=== PATIENT | female | born 1985 | race Two or more races ===

== ENCOUNTER → 2018-12-29 | Day surgery (SDC) | payer BC ==
[~2018-12-29] MED LIST: ATENOLOL50 MG PO; BENZOCAINE 20% SPR 60 ML CAN ONE; COUMADIN10 MG PO; COUMADIN2 MG PO; FENTANYL CITRATE/PF 100MCG/2 ML INJ ONE; LIDOCAINE HCL 2% LOCAL INJ 5 ML SDV VIAL INJ ONE; LISINOPRIL10 MG PO; METOPROLOL TART25 MG PO; MIDAZOLAM HCL 2 MG/2 ML VIAL ONE; PROPOFOL IV EMULSION 10 MG/ML 20 ML VIAL ONE; SODIUM CHLORIDE 0.9% 1000ML 1,000 ML ONE; TIKOSYN500 MCG PO; TOPROL XL25 MG PO
--- OUTSIDE RECORDS SUMMARY | 2018-12-29 07:27 | XMS REPORT | Summary of Care ---
Author Author [facility] Organization [facility] Address Unknown Phone Unavailable Encounter CAMERON Prater(SHAUNA) [id number] Date(s): 06/10/15 - 06/10/[address] [facility] [address] [place] [address]- Discharge Diagnosis: Dizziness Discharge Disposition: Home Attending Physician: Juventino Reyes MD Vital Signs Most recent to 1 2 oldest [Reference Range]: Height 167.64 cm (06/10/15 12:56 PM) Most recent to 1 2 oldest [Reference Range]: Temperature Oral 98.1 DegF 98.5 DegF [96.4-99.1 DegF] (06/10/15 4:08 PM) (06/10/15 12:56 PM) Most recent to 1 2 oldest [Reference Range]: Blood Pressure 131/69 mmHg 147/100 mmHg [90-140/60-90 mmHg] (06/10/15 4:08 PM) *HI* (06/10/15 12:56 PM) Most recent to 1 2 oldest [Reference Range]: Respiratory Rate 18 BRMIN 20 BRMIN [14-20 BRMIN] (06/10/15 4:08 PM) (06/10/15 12:56 PM) Most recent to 1 2 oldest [Reference Range]: Peripheral Pulse 81 bpm 78 bpm Rate [60-100 bpm] (06/10/15 4:08 PM) (06/10/15 12:56 PM) Most recent to 1 2 oldest [Reference Range]: Weight 79.545 kg (06/10/15 12:56 PM) Most recent to 1 2 oldest [Reference Range]: Body Mass Index 28.3 m2 (06/10/15 12:56 PM) Problem List Condition Effective Dates Status Health Status Informant AF - Atrial Active fibrillation(Confirm ed) Cardiac Active pacemaker(Confirmed) Mitral valve Resolved disease(Confirmed) Mitral valve Active disease(Confirmed) MVR - Mitral valve Active replacement(Confirme d) Pacemaker(Confirmed) Active Palpitations(Confirm Active ed) Palpitations(Confirm Active ed) SVT - Active Supraventricular tachycardia(Confirme d) Allergies, Adverse Reactions, Alerts Substance Reaction Severity Status NKDA Active Medications Ativan 1 mg, Route: PO, Drug form: TAB, ONCE, Dosing Weight 79.545, kg, Priority: STAT, Start date: 06/10/15 15:48:00, Stop date: 06/10/15 15:48:00 Start Date: 06/10/15 Stop Date: 06/10/15 Status: Completed Results ELECTROLYTES Most recent to 1 oldest [Reference Range]: Sodium Lvl [135-145 137 mEq/L mEq/L] (06/10/15 2:39 PM) Potassium Lvl 3.8 mEq/L [3.5-5.1 mEq/L] (06/10/15 2:39 PM) Chloride Lvl [95-109 105 mEq/L mEq/L] (06/10/15 2:39 PM) CO2 [24-32 mEq/L] 24 mEq/L (06/10/15 2:39 PM) AGAP [10.0-20.0 11.8 mEq/L mEq/L] (06/10/15 2:39 PM) CHEM PANEL Most recent to 1 oldest [Reference Range]: Creatinine Lvl 0.7 mg/dL [0.5-1.4 mg/dL] (06/10/15 2:39 PM) eGFR 116 mL/min/1.73m2 1 *NA* (06/10/15 2:39 PM) BUN [7-22 mg/dL] 10 mg/dL (06/10/15 2:39 PM) B/C Ratio [6-25] 14 (06/10/15 2:39 PM) Glucose Lvl [70-99 108 mg/dL mg/dL] *HI* (06/10/15 2:39 PM) Total Protein 8.1 g/dL [6.4-8.4 g/dL] (06/10/15 2:39 PM) Albumin Lvl [3.5-5.0 4.0 g/dL g/dL] (06/10/15 2:39 PM) Globulin [2.0-4.0 4.1 g/dL g/dL] *HI* (06/10/15 2:39 PM) A/G Ratio [0.7-1.6] 1.0 (06/10/15 2:39 PM) Calcium Lvl 8.4 mg/dL [8.5-10.5 mg/dL] *LOW* (06/10/15 2:39 PM) ALT [0-65 unit/L] 27 unit/L (06/10/15 2:39 PM) AST [0-37 unit/L] 29 unit/L (06/10/15 2:39 PM) Alk Phos [39-136 74 unit/L unit/L] (06/10/15 2:39 PM) Bili Total [0.2-1.3 0.7 mg/dL mg/dL] (06/10/15 2:39 PM) 1Result Comment: The eGFR is calculated using the CKD-EPI formula. In most young, healthy individuals the eGFR will be >90 mL/min/1.73m2. The eGFR declines with age. An eGFR of 60-89 may be normal in some populations, particularly the elderly, for whom the CKD-EPI formula has not been extensively validated. Use of the eGFR is not recommended in the following populations: Individuals with unstable creatinine concentrations, including patients and those with serious co-morbid conditions. Patients with extremes in muscle mass or diet. The data above are obtained from the National Kidney Disease Education Program ( NKDEP) which additionally recommends that when the eGFR is used in patients with extremes of body mass index for purposes of drug dosing, the eGFR should be mul tiplied by the estimated BMI. CARDIAC ENZYMES Most recent to 1 oldest [Reference Range]: Total CK [12-191 149 unit/L unit/L] (06/10/15 2:39 PM) CK MB [0.5-3.6 1.8 ng/mL ng/mL] (06/10/15 2:39 PM) CK MB Index 1.2 [0.0-2.5] (06/10/15 2:39 PM) Troponin-I <0.02 ng/mL [0.00-0.40 ng/mL] (06/10/15 2:39 PM) HEMATOLOGY Most recent to 1 oldest [Reference Range]: WBC [3.7-10.4 K/CMM] 9.5 K/CMM (06/10/15 2:39 PM) RBC [4.20-5.40 4.67 M/CMM M/CMM] (06/10/15 2:39 PM) Hgb [12.0-16.0 g/dL] 14.9 g/dL (06/10/15 2:39 PM) Hct [36.0-48.0 %] 44.0 % (06/10/15 2:39 PM) MCV [80.0-98.0 fL] 94.2 fL (06/10/15 2:39 PM) MCH [27.0-31.0 pg] 32.0 pg *HI* (06/10/15 2:39 PM) MCHC [32.0-36.0 33.9 g/dL g/dL] (06/10/15 2:39 PM) RDW [11.5-14.5 %] 14.5 % (06/10/15 2:39 PM) Platelet [133-450 198 K/CMM K/CMM] (06/10/15 2:39 PM) MPV [7.4-10.4 fL] 9.6 fL (06/10/15 2:39 PM) Segs [45.0-75.0 %] 73.2 % (06/10/15 2:39 PM) Lymphocytes 15.1 % [20.0-40.0 %] *LOW* (06/10/15 2:39 PM) Monocytes [2.0-12.0 9.4 % %] (06/10/15 2:39 PM) Eosinophils [0.0-4.0 1.4 % %] (06/10/15 2:39 PM) Basophils [0.0-1.0 0.9 % %] (06/10/15 2:39 PM) Segs-Bands # 6.9 K/CMM [1.5-8.1 K/CMM] (06/10/15 2:39 PM) Lymphocytes # 1.4 K/CMM [1.0-5.5 K/CMM] (06/10/15 2:39 PM) Monocytes # [0.0-0.8 0.9 K/CMM K/CMM] *HI* (06/10/15 2:39 PM) Eosinophils # 0.1 K/CMM [0.0-0.5 K/CMM] (06/10/15 2:39 PM) Basophils # [0.0-0.2 0.1 K/CMM K/CMM] (06/10/15 2:39 PM) PT [12.0-14.7 31.7 seconds seconds] *HI* (06/10/15 2:39 PM) INR [0.85-1.17] 2.94 *HI* (06/10/15 2:39 PM) PTT [22.9-35.8 76.1 seconds seconds] *HI* (06/10/15 2:39 PM) Immunizations Vaccine Date Refusal Reason influenza virus vaccine, inactivated 10/01/12 Procedures Procedure Date Related Diagnosis Body Site Cardiac pacemaker procedure Mitral valve operation Social History Social History Type Response Smoking Status Former smoker; Type: Cigarettes; Exposure to Tobacco Smoke None; Cigarette Smoking Last 365 Days No; Reg Smoking Cessation Counseling No Assessment and Plan No data available for this section
--- OUTSIDE RECORDS SUMMARY | 2018-12-29 07:27 | XMS REPORT | CCD ---
Author Author Auto Generated Organization [facility] Address Unknown Phone Unavailable Care Team Providers Care Order Processing Clerk Name Role Phone Dipesh Blue CP Allergies, Adverse Reactions, Alerts Substance Reaction Status NKDA Active Problem List Condition Effective Dates Status AF - Atrial fibrillation Active Cardiac pacemaker Active MVR - Mitral valve replacement Active Palpitations Active SVT - Supraventricular tachycardia Active Medications Medication Instructions Start Date End Date Status Lovenox 80 mg, 0.8 mL, Route: SUB-Q, Drug 10/01/2012 10/01/2012 Discontinued form: INJ, [id number], Dosing Weight 78.636, kg, Start date: 10/01/12 15:00:00, Duration: 30 day, Stop date: 10/31/12 3:00:00 influenza virus 0.5 ml, Route: IM, Drug Form: INJ, 10/01/2012 10/01/2012 Completed vaccine, inactivated Daily, Start date: 10/01/12 9:00:00, Duration: 1 doses or times, Stop date: 10/01/12 9:00:00 Lovenox 78.636 mg, Route: SUB-Q, Drug form: 10/01/2012 10/01/2012 Discontinued INJ, [id number], Dosing Weight 78.636, kg, Start date: 10/01/12 8:00:00, Duration: 30 day, Stop date: 10/30/12 20:00:00, Pediatric Dosing Pediatric Dosing Dextrose 5% with 1,000 mL, Rate: 40 ml/hr, Infuse 09/30/2012 10/01/2012 Discontinued 0.45% NaCl IV 1,000 over: 25 hr, Route: IV, kg, Total mL Volume: 1,000, Start date: 09/30/12 22:16:00, Duration: 30 day, Stop date: 10/30/12 22:15:00 Saline Flush 0.9% 5 ml, Route: IVP, Drug Form: INJ, 09/30/2012 10/01/2012 Discontinued Dosing Weight 77.273, kg, PRN, PRN Line Flush, Start date: 09/30/12 22:16:00, Duration: 30 day, Stop date: 10/30/12 22:15:00 [place] 5/325 oral 1 tab, Route: PO, Drug Form: TAB, 09/30/2012 10/01/2012 Discontinued tablet Dosing Weight 78.636, kg, Q4H, PRN Pain, Start date: 09/30/12 22:59:00, Duration: 30 day, Stop date: 10/30/12 22:58:00 atenolol 50 mg oral 50 mg, 1 tab, Route: PO, Drug form: 10/01/2012 10/01/2012 Discontinued tablet TAB, Daily, Dosing Weight 78.636, kg, Start date: 10/01/12 9:00:00, Duration: 30 day, Stop date: 10/30/12 9:00:00 ibuprofen 800 mg, 2 tab, Route: PO, Drug 09/30/2012 10/01/2012 Discontinued form: TAB, Q8H, Dosing Weight 78.636, kg, PRN For Pain, Start date: 09/30/12 22:57:00, Duration: 30 day, Stop date: 10/30/12 22:56:00 amoxicillin 500 mg, 1 cap, Route: PO, Drug 10/01/2012 10/01/2012 Discontinued form: CAP, [id number], Dosing Weight 78.636, kg, Start date: 10/01/12 0:00:00, Duration: 30 day, Stop date: 10/30/12 16:00:00 Lovenox 80 mg/0.8 mL 80 mg, SUB-Q, Q12H, 14 syr, 10/01/2012 Ordered subcutaneous Substitution Allowed, INJ solution amoxicillin 500 mg 500 mg, 1 tab, PO, Q8H, 09/30/2012 Ordered oral tablet Substitution Allowed influenza virus 0.5 ml, Route: IM, Drug Form: INJ, 10/01/2012 10/01/2012 Completed vaccine, inactivated Start date: 10/01/12 9:00:00, Stop date: 10/01/12 9:00:00 ibuprofen 800 mg 800 mg, 1 tab, PO, Q8H, PRN, as 09/30/2012 Ordered oral tablet needed for pain, Substitution Allowed atenolol 50 mg oral 50 mg, 1 tab, PO, Daily, 09/30/2012 Ordered tablet Substitution Allowed Immunizations Vaccine Date Status influenza virus vaccine, inactivated 10/01/2012 Auth (Verified) Vital Signs Most recent to oldest [Reference Range]: 1 2 3 Height 170.18 cm (09/30/2012 22:28:00) 172.72 cm (09/30/2012 12:23:00) Temperature Oral [96.4-99.1 DegF] 98.0 DegF (10/01/2012 16:00:00) 98.1 DegF (10/01/2012 12:00:00) 98.5 DegF (10/01/2012 08:00:00) Systolic Blood Pressure [90-140 mmHg] 106 mmHg (10/01/2012 16:00:00) 108 mmHg (10/01/2012 12:00:00) 117 mmHg (10/01/2012 08:00:00) Diastolic Blood Pressure [60-90 mmHg] 69 mmHg (10/01/2012 16:00:00) 66 mmHg (10/01/2012 12:00:00) 71 mmHg (10/01/2012 08:00:00) Respiratory Rate [14-20 BRMIN] 18 BRMIN (10/01/2012 16:00:00) 16 BRMIN (10/01/2012 12:00:00) 16 BRMIN (10/01/2012 08:00:00) Peripheral Pulse Rate [60-100 bpm] 96 bpm (10/01/2012 16:00:00) 81 bpm (10/01/2012 12:00:00) 97 bpm (10/01/2012 08:00:00) Weight 78.636 kg (09/30/2012 22:28:00) 77.273 kg (09/30/2012 12:23:00) Results CHEMISTRY Most recent to oldest [Reference Range]: 1 Sodium Lvl [135-145 mEq/L] 144 mEq/L (10/01/2012 05:37:00) Potassium Lvl [3.5-5.1 mEq/L] 3.9 mEq/L (10/01/2012 05:37:00) Chloride Lvl [95-109 mEq/L] 108 mEq/L (10/01/2012 05:37:00) CO2 [24-32 mEq/L] 27 mEq/L (10/01/2012 05:37:00) AGAP [10.0-20.0 mEq/L] 12.9 mEq/L (10/01/2012 05:37:00) Creatinine Lvl [0.5-1.4 mg/dL] 0.8 mg/dL (10/01/2012 05:37:00) eGFR 101 mL/min/1.73m2 1 *NA* (10/01/2012 05:37:00) BUN [7-22 mg/dL] 7 mg/dL (10/01/2012 05:37:00) Glucose Lvl [70-99 mg/dL] 88 mg/dL 2 (10/01/2012 05:37:00) Calcium Lvl [8.5-10.5 mg/dL] 8.2 mg/dL *LOW* (10/01/2012 05:37:00) 1Result Comment: The eGFR is calculated using [...] be mul tiplied by the estimated BMI. 2Interpretive Data: Adult reference range values reflect the clinical guidelines of the [place] [employer]. HEMATOLOGY Most recent to oldest [Reference Range]: 1 WBC [3.7-10.4 K/CMM] 7.6 K/CMM (10/01/2012 05:37:00) RBC [4.20-5.40 M/CMM] 4.04 M/CMM *LOW* (10/01/2012 05:37:00) Hgb [12.0-16.0 g/dL] 12.7 g/dL (10/01/2012 05:37:00) Hct [36.0-48.0 %] 36.9 % (10/01/2012 05:37:00) MCV [81.0-99.0 fL] 91.4 fL (10/01/2012 05:37:00) MCH [27.0-31.0 pg] 31.5 pg *HI* (10/01/2012 05:37:00) MCHC [32.0-36.0 g/dL] 34.5 g/dL (10/01/2012 05:37:00) RDW [11.5-14.5 %] 13.8 % (10/01/2012 05:37:00) Platelet [133-450 K/CMM] 134 K/CMM (10/01/2012 05:37:00) MPV [7.4-10.4 fL] 9.3 fL (10/01/2012 05:37:00) Segs [45.0-75.0 %] 68.5 % (10/01/2012 05:37:00) Lymphocytes [20.0-40.0 %] 17.3 % *LOW* (10/01/2012 05:37:00) Monocytes [2.0-12.0 %] 11.3 % (10/01/2012 05:37:00) Eosinophils [0.0-4.0 %] 2.5 % (10/01/2012 05:37:00) Basophils [0.0-1.0 %] 0.4 % (10/01/2012 05:37:00) Segs-Bands # [1.5-8.1 K/CMM] 5.2 K/CMM (10/01/2012 05:37:00) Lymphocytes # [1.0-5.5 K/CMM] 1.3 K/CMM (10/01/2012 05:37:00) Monocytes # [0.0-0.8 K/CMM] 0.9 K/CMM *HI* (10/01/2012 05:37:00) Eosinophils # [0.0-0.5 K/CMM] 0.2 K/CMM (10/01/2012 05:37:00) Basophils # [0.0-0.2 K/CMM] 0.0 K/CMM (10/01/2012 05:37:00) PT [12.0-14.7 seconds] 21.8 seconds *HI* (10/01/2012 05:37:00) INR [0.85-1.17] 1.89 3 *HI* (10/01/2012 05:37:00) 3Interpretive Data: RECOMMENDED RANGES FOR PROTIME INR: 2.0-3.0 for most medical and surgical thromboembolic states. 2.5-3.5 for artificial heart valves and recurrent embolism. INR SHOULD BE USED ONLY FOR PATIENTS ON STABLE ANTICOAGULANT THERAPY.
--- OUTSIDE RECORDS SUMMARY | 2018-12-29 07:27 | XMS REPORT | CCD ---
Author Author Auto Generated Organization [facility] Address Unknown Phone Unavailable Care Team Providers Care Attorney Law Clerk Name Role Phone Ivonne Magaña CP Allergies, Adverse Reactions, Alerts Substance Reaction Status NKDA Active Problem List Condition Effective Dates Status Palpitations Active SVT - Supraventricular tachycardia Active Medications Medication Instructions Start Date End Date Status Coumadin 15 mg, PO, Substitution Allowed, 06/05/2012 Ordered TAB morphine Sulfate 2 mg, 1 mL, Route: IVP, Drug form: 06/04/2012 06/05/2012 Discontinued INJ, Q15Min, PRN Chest Pain, Start date: 06/04/12 17:04:00, Duration: 2 doses or times, Stop date: Limited # of times acetaminophen-hydroc 1 tab, Route: PO, Drug Form: TAB, 06/04/2012 06/05/2012 Discontinued odone 325 mg-5 mg Q4H, PRN Pain Score 1-5, Start oral tablet date: 06/04/12 17:04:00, Duration: 30 day, Stop date: 07/04/12 17:03:00 Saline Flush 0.9% 5 ml, Route: IVP, Drug Form: INJ, 06/04/2012 06/05/2012 Discontinued PRN, PRN Line Flush, Start date: 06/04/12 17:04:00, Duration: 30 day, Stop date: 07/04/12 17:03:00 Zofran 4 mg, 2 mL, Route: IVP, Drug form: 06/04/2012 06/05/2012 Discontinued INJ, Q8H, PRN Nausea, Start date: 06/04/12 17:04:00, Duration: 30 day, Stop date: 07/04/12 17:03:00 Ambien 10 mg, 2 tab, Route: PO, Drug form: 06/04/2012 06/05/2012 Discontinued TAB, Bedtime, PRN Insomnia, Start date: 06/04/12 17:04:00, Duration: 30 day, Stop date: 07/04/12 17:03:00 potassium chloride 20 mEq, 1 tab, Route: PO, Drug 06/04/2012 06/05/2012 Discontinued 20 mEq oral tablet, form: ERTAB, Daily, PRN Abnormal extended release Lab Result, Replacement for potassium less than 3.5, Start date: 06/04/12 17:04:00, Duration: 30 day, Stop date: 07/04/12 17:03:00 magnesium oxide 400 mg, 1 tab, Route: PO, Drug 06/04/2012 06/05/2012 Discontinued form: TAB, Daily, PRN Abnormal Lab Result, Start date: 06/04/12 17:04:00, Duration: 30 day, Stop date: 07/04/12 17:03:00 Saline Flush 0.9% 5 ml, Route: IVP, Drug Form: INJ, 06/04/2012 06/05/2012 Discontinued Q12H, Start date: 06/04/12 21:00:00, Duration: 30 day, Stop date: 07/04/12 9:00:00 metoprolol extended 25 mg, 1 tab, Route: PO, Drug form: 06/05/2012 06/05/2012 Discontinued release ERTAB, Daily, Start date: 06/05/12 9:00:00, Duration: 30 day, Stop date: 07/04/12 9:00:00 Saline Flush 0.9% 5 ml, Route: IVP, Drug Form: INJ, 06/04/2012 06/05/2012 Discontinued PRN, PRN Line Flush, Start date: 06/04/12 15:58:00, Duration: 30 day, Stop date: 07/04/12 15:57:00 acetaminophen 650 mg, 2 tab, Route: PO, Drug 06/04/2012 06/05/2012 Discontinued form: TAB, Q4H, PRN Pain/Fever, Start date: 06/04/12 15:58:00, Duration: 30 day, Stop date: 07/04/12 15:57:00 acetaminophen-hydroc 1 tab, Route: PO, Drug Form: TAB, 06/04/2012 06/05/2012 Discontinued odone 325 mg-5 mg Q4H, PRN Pain Score 1-3, Start oral tablet date: 06/04/12 15:58:00, Duration: 30 day, Stop date: 07/04/12 15:57:00 acetaminophen-hydroc 1 tab, PO, Q4H, PRN, 10 tab, Pain 06/05/2012 Ordered odone 325 mg-5 mg Score 1-3, Substitution Allowed, oral tablet Soft Stop, TAB metoprolol 25 mg 25 mg, 1 tab, PO, Daily, 30 tab, 06/05/2012 Ordered oral tablet Substitution Allowed, TAB metoprolol 25 mg 25 mg, 1 tab, Substitution Allowed 06/05/2012 06/05/2012 Discontinued oral tablet Vital Signs Most recent to oldest [Reference Range]: 1 2 3 Height 170.18 cm (06/04/2012 16:11:00) 170.18 cm (06/04/2012 15:25:00) Temperature Oral [96.4-99.1 DegF] 98.1 DegF (06/05/2012 08:11:00) 97 DegF (06/05/2012 04:00:00) 96.4 DegF (06/04/2012 23:38:00) Systolic Blood Pressure [90-140 mmHg] 110 mmHg (06/05/2012 08:11:00) 102 mmHg (06/05/2012 04:00:00) 109 mmHg (06/05/2012 02:00:00) Diastolic Blood Pressure [60-90 mmHg] 58 mmHg *LOW* (06/05/2012 08:11:00) 46 mmHg *LOW* (06/05/2012 04:00:00) 48 mmHg *LOW* (06/05/2012 02:00:00) Respiratory Rate [14-20 BRMIN] 16 BRMIN (06/05/2012 08:11:00) 18 BRMIN (06/05/2012 04:00:00) 16 BRMIN (06/05/2012 02:00:00) Peripheral Pulse Rate [60-100 bpm] 65 bpm (06/05/2012 08:11:00) 65 bpm (06/05/2012 04:00:00) 67 bpm (06/05/2012 02:00:00) Weight 75.199 kg (06/04/2012 16:11:00) 75.199 kg (06/04/2012 15:25:00) Results CHEMISTRY Most recent to oldest [Reference Range]: 1 Sodium Lvl [135-145 mEq/L] 147 mEq/L *HI* (06/05/2012 04:30:00) Potassium Lvl [3.5-5.1 mEq/L] 3.7 mEq/L (06/05/2012 04:30:00) Chloride Lvl [95-109 mEq/L] 113 mEq/L *HI* (06/05/2012 04:30:00) CO2 [24-32 mEq/L] 24 mEq/L (06/05/2012 04:30:00) AGAP [10.0-20.0 mEq/L] 13.7 mEq/L (06/05/2012 04:30:00) Creatinine Lvl [0.5-1.4 mg/dL] 0.8 mg/dL (06/05/2012 04:30:00) BUN [7-22 mg/dL] 9 mg/dL (06/05/2012 04:30:00) Glucose Lvl [70-99 mg/dL] 91 mg/dL 1 (06/05/2012 04:30:00) Calcium Lvl [8.5-10.5 mg/dL] 7.5 mg/dL *LOW* (06/05/2012 04:30:00) Magnesium Lvl [1.8-2.4 mg/dL] 1.7 mg/dL *LOW* (06/05/2012 04:30:00) 1Interpretive Data: Adult reference range values reflect the clinical guidelines of the [place] [employer]. HEMATOLOGY Most recent to oldest [Reference Range]: 1 WBC [3.7-10.4 K/CMM] 6.1 K/CMM (06/05/2012 04:30:00) RBC [4.20-5.40 M/CMM] 3.48 M/CMM *LOW* (06/05/2012 04:30:00) Hgb [12.0-16.0 g/dL] 10.9 g/dL *LOW* (06/05/2012 04:30:00) Hct [36.0-48.0 %] 32.6 % *LOW* (06/05/2012 04:30:00) MCV [81.0-99.0 fL] 93.7 fL (06/05/2012 04:30:00) MCH [27.0-31.0 pg] 31.2 pg *HI* (06/05/2012 04:30:00) MCHC [32.0-36.0 g/dL] 33.3 g/dL (06/05/2012 04:30:00) RDW [11.5-14.5 %] 14.4 % (06/05/2012 04:30:00) Platelet [133-450 K/CMM] 144 K/CMM (06/05/2012 04:30:00) MPV [7.4-10.4 fL] 9.8 fL (06/05/2012 04:30:00) Segs [45.0-75.0 %] 66.1 % (06/05/2012 04:30:00) Lymphocytes [20.0-40.0 %] 23.3 % (06/05/2012 04:30:00) Monocytes [2.0-12.0 %] 7.9 % (06/05/2012 04:30:00) Eosinophils [0.0-4.0 %] 2.3 % (06/05/2012 04:30:00) Basophils [0.0-1.0 %] 0.4 % (06/05/2012 04:30:00) Segs-Bands # [1.5-8.1 K/CMM] 4.1 K/CMM (06/05/2012 04:30:00) Lymphocytes # [1.0-5.5 K/CMM] 1.4 K/CMM (06/05/2012 04:30:00) Monocytes # [0.0-0.8 K/CMM] 0.5 K/CMM (06/05/2012 04:30:00) Eosinophils # [0.0-0.5 K/CMM] 0.1 K/CMM (06/05/2012 04:30:00) Basophils # [0.0-0.2 K/CMM] 0.0 K/CMM (06/05/2012 04:30:00) PT [12.0-14.7 seconds] 27.1 seconds *HI* (06/05/2012 04:30:00) INR [0.85-1.17] 2.55 2 *HI* (06/05/2012 04:30:00) 2Interpretive Data: RECOMMENDED RANGES FOR PROTIME INR: 2.0-3.0 for most medical and surgical thromboembolic states. 2.5-3.5 for artificial heart valves and recurrent embolism. INR SHOULD BE USED ONLY FOR PATIENTS ON STABLE ANTICOAGULANT THERAPY.
--- OUTSIDE RECORDS SUMMARY | 2018-12-29 07:27 | XMS REPORT | CCD ---
Author Author Auto Generated Organization [facility] Address Unknown Phone Unavailable Care Team Providers Care Hot Walker Name Role Phone Cassie Alvarado CP Allergies, Adverse Reactions, Alerts Substance Reaction Status NKDA Active Problem List Condition Effective Dates Status AF - Atrial fibrillation Active Cardiac pacemaker Active MVR - Mitral valve replacement Active Palpitations Active SVT - Supraventricular tachycardia Active Medications Medication Instructions Start Date End Date Status Lovenox 80 mg, 0.8 mL, Route: SUB-Q, Drug 03/11/2013 03/11/2013 Discontinued form: INJ, ONCE, Dosing Weight 79.545, kg, Priority: STAT, Start date: 03/11/13 15:58:00, Stop date: 03/11/13 15:58:00 heparin 2,100 unit, 2.1 mL, Route: IV, Drug 03/12/2013 03/15/2013 Discontinued form: INJ, PRN, PRN Abnormal Lab Result, Start date: 03/12/13 8:17:00, Duration: 30 day, Stop date: 04/11/13 8:16:00 heparin 4,100 unit, 4.1 mL, Route: IV, Drug 03/12/2013 03/15/2013 Discontinued form: INJ, PRN, PRN Abnormal Lab Result, Start date: 03/12/13 8:16:00, Duration: 30 day, Stop date: 04/11/13 8:15:00 Coumadin 15 mg, 3 tab, Route: PO, Drug form: 03/13/2013 03/13/2013 Completed TAB, Q5PM, Start date: 03/13/13 17:00:00, Duration: 1 day, Stop date: 03/13/13 17:00:00 warfarin 5 mg oral 15 mg, 3 tab, PO, Daily, 30 tab, 03/15/2013 Ordered tablet Substitution Allowed Coumadin 15 mg, 3 tab, Route: PO, Drug form: 03/14/2013 03/14/2013 Completed TAB, Q5PM, Start date: 03/14/13 17:00:00, Duration: 1 doses or times, Stop date: 03/14/13 17:00:00 atenolol 25 mg oral 25 mg, 1 tab, PO, QNoon, 03/11/2013 Ordered tablet Substitution Allowed warfarin 12 mg, PO, QNoon, Substitution 03/11/2013 03/15/2013 Discontinued Allowed warfarin 12 mg, 6 tab, Route: PO, Drug form: 03/11/2013 03/13/2013 Discontinued TAB, QNoon, Dosing Weight 79.545, kg, Priority: NOW, Start date: 03/11/13 17:38:00, Duration: 30 day, Stop date: 04/10/13 12:00:00 warfarin 12 mg, Route: PO, QNoon, Dosing 03/12/2013 03/11/2013 Canceled Weight 79.545, kg, Start date: 03/12/13 12:00:00, Duration: 30 day, Stop date: 04/10/13 12:00:00 atenolol 25 mg oral 25 mg, 1 tab, Route: PO, Drug form: 03/12/2013 03/15/2013 Discontinued tablet TAB, QNoon, Dosing Weight 79.545, kg, Start date: 03/12/13 12:00:00, Duration: 30 day, Stop date: 04/10/13 12:00:00 Saline Flush 0.9% 5 ml, Route: IVP, Drug Form: INJ, 03/11/2013 03/15/2013 Discontinued Dosing Weight 79.545, kg, Q12H, Start date: 03/11/13 21:00:00, Duration: 30 day, Stop date: 04/10/13 9:00:00 Saline Flush 0.9% 5 ml, Route: IVP, Drug Form: INJ, 03/11/2013 03/15/2013 Discontinued Dosing Weight 79.545, kg, PRN, PRN Line Flush, Start date: 03/11/13 20:29:00, Duration: 30 day, Stop date: 04/10/13 20:28:00 nitroglycerin SL Tab 0.4 mg, Route: SL, Drug form: TAB, 03/11/2013 03/11/2013 Deleted Q5Min, Dosing Weight 79.545, kg, PRN Chest Pain, Start date: 03/11/13 20:29:00, Duration: 3 doses or times, Stop date: Limited # of times enoxaparin 79.545 mg, Route: SUB-Q, Q12H, 03/11/2013 03/11/2013 Canceled Dosing Weight 79.545, kg, Start date: 03/11/13 21:00:00, Duration: 30 day, Stop date: 04/10/13 9:00:00 warfarin 3 mg, 3 tab, Route: PO, Drug form: 03/12/2013 03/12/2013 Completed TAB, ONCE, Dosing Weight 81.818, kg, Priority: NOW, Start date: 03/12/13 18:06:00, Stop date: 03/12/13 18:06:00 nitroglycerin 0.4 mg 0.4 mg, 1 tab, Route: SL, Drug 03/11/2013 03/15/2013 Discontinued sublingual tablet form: TAB, Q5Min, PRN Chest Pain, Start date: 03/11/13 19:52:00, Duration: 30 day, Stop date: 04/10/13 19:51:00 atropine 0.5 mg, 5 mL, Route: IVP, Drug 03/11/2013 03/15/2013 Discontinued form: INJ, PRN, PRN Bradycardia, Start date: 03/11/13 19:52:00, Duration: 30 day, Stop date: 04/10/13 19:51:00 metoprolol 5 mg/5 ml 5 mg, 5 mL, Route: IVP, Drug form: 03/11/2013 03/11/2013 Completed INJ INJ, ONCE, Dosing Weight 79.545, kg, Priority: STAT, Start date: 03/11/13 15:12:00, Stop date: 03/11/13 15:12:00 Heparin - infusion 25,000 unit, 500 mL, Rate: Start at 03/11/2013 03/15/2013 Discontinued (ACS Protocol) 12 units/kg/hr (Max Initial dose heparin 25,000 units 1,000 un, Dosing Weight 68.8, kg, in D5W 500 mL Premix Route: IV, Total Volume: 500 ml, 25,000 unit Start date: 03/11/13 17:35:00, Duration: 30 day, Stop date: 04/10/13 17:34:00, Replace Every: 24 hr Heparin - one time 4,000 unit, 4 mL, Route: IV, Drug 03/11/2013 03/11/2013 Completed bolus for ACS form: INJ, ONCE, Dosing Weight 79.545, kg, Priority: STAT, Start date: 03/11/13 17:35:00, Stop date: 03/11/13 17:35:00 influenza virus 0.5 ml, Route: IM, Drug Form: INJ, 10/01/2012 10/01/2012 Completed vaccine, inactivated Start date: 10/01/12 9:00:00, Stop date: 10/01/12 9:00:00 warfarin 15 mg, 3 tab, Route: PO, Drug form: 03/15/2013 03/15/2013 Completed TAB, ONCE, Dosing Weight 68.8, kg, Priority: NOW, Start date: 03/15/13 18:01:00, Stop date: 03/15/13 18:01:00 Immunizations Vaccine Date Status influenza virus vaccine, inactivated 10/01/2012 Auth (Verified) Vital Signs Most recent to oldest [Reference Range]: 1 2 3 Height 170.18 cm (03/11/2013 12:56:00) Temperature Oral [96.4-99.1 DegF] 98.4 DegF (03/15/2013 16:00:00) 98.2 DegF (03/15/2013 12:00:00) 97.4 DegF (03/15/2013 08:00:00) Systolic Blood Pressure [90-140 mmHg] 104 mmHg (03/15/2013 16:00:00) 111 mmHg (03/15/2013 12:00:00) 107 mmHg (03/15/2013 08:00:00) Diastolic Blood Pressure [60-90 mmHg] 63 mmHg (03/15/2013 16:00:00) 69 mmHg (03/15/2013 12:00:00) 67 mmHg (03/15/2013 08:00:00) Respiratory Rate [14-20 BRMIN] 18 BRMIN (03/15/2013 16:00:00) 18 BRMIN (03/15/2013 12:00:00) 18 BRMIN (03/15/2013 08:00:00) Peripheral Pulse Rate [60-100 bpm] 88 bpm (03/15/2013 16:00:00) 91 bpm (03/15/2013 12:00:00) 85 bpm (03/15/2013 08:00:00) Weight 68.8 kg (03/14/2013 22:00:00) 81.818 kg (03/11/2013 23:43:00) 79.545 kg (03/11/2013 12:56:00) Results CHEMISTRY Most recent to oldest [Reference Range]: 1 2 3 Sodium Lvl [135-145 mEq/L] 139 mEq/L (03/11/2013:25:00) Potassium Lvl [3.5-5.1 mEq/L] 3.7 mEq/L (03/11/2013:25:00) Chloride Lvl [95-109 mEq/L] 103 mEq/L (03/11/2013:25:00) CO2 [24-32 mEq/L] 27 mEq/L (03/11/2013:25:00) AGAP [10.0-20.0 mEq/L] 12.7 mEq/L (03/11/2013:25:00) Creatinine Lvl [0.5-1.4 mg/dL] 0.6 mg/dL (03/11/201325:00) eGFR 124 mL/min/1.73m2 1 *NA* (03/11/2013:25:00) BUN [7-22 mg/dL] 10 mg/dL (03/11/2013:25:00) B/C Ratio [6-25] 17 (03/11/2013:25:00) Glucose Lvl [70-99 mg/dL] 117 mg/dL 2 *HI* (03/11/2013:25:00) Total Protein [6.4-8.4 g/dL] 7.9 g/dL (03/11/201325:00) Albumin Lvl [3.5-5.0 g/dL] 4.3 g/dL (03/11/2013:25:00) Globulin [2.0-4.0 g/dL] 3.6 g/dL (03/11/2013:25:00) A/G Ratio [0.7-1.6] 1.2 (03/11/2013::00) Calcium Lvl [8.5-10.5 mg/dL] 8.8 mg/dL (03/11/201325:00) Phosphorus [2.5-4.5 mg/dL] 3.1 mg/dL (03/11/2013:00) Magnesium Lvl [1.8-2.4 mg/dL] 1.4 mg/dL *LOW* (03/11/2013::00) ALT [0-65 unit/L] 25 unit/L (03/11/2013:00) AST [0-37 unit/L] 35 unit/L (03/11/2013:00) Alk Phos [39-136 unit/L] 67 unit/L (03/11/2013::00) Bili Total [0.2-1.3 mg/dL] 0.9 mg/dL (03/11/2013:00) Total CK [12-191 unit/L] 78 unit/L (03/12/2013 00:55:00) 92 unit/L (03/11/2013 21:00:00) 119 unit/L (03/11/2013:00) CK MB [0.5-3.6 ng/mL] 1.0 ng/mL (03/12/2013 00:55:00) 0.9 ng/mL (03/11/2013 21:00:00) 1.7 ng/mL (03/11/2013:00) CK MB Index [0.0-2.5] 1.3 (03/12/2013 00:55:00) 1.0 (03/11/2013 21:00:00) 1.4 (03/11/201325:00) Troponin-I [0.00-0.40 ng/mL] <0.02 ng/mL (03/12/2013 00:55:00) <0.02 ng/mL (03/11/2013 21:00:00) <0.02 ng/mL (03/11/2013 13:25:00) CHD Risk [3.90-5.80] 2.29 *LOW* (03/12/2013 00:55:00) Chol [120-200 mg/dL] 165 mg/dL (03/12/2013 00:55:00) Trig [0-200 mg/dL] 55 mg/dL (03/12/2013 00:55:00) HDL [>=35 mg/dL] 72 mg/dL (03/12/2013 00:55:00) LDL [0-129 mg/dL] 82 mg/dL (03/12/2013 00:55:00) U Amph Scr [Negative] Negative *NA* (03/11/2013 15:04:49) U Phyllis Scr [Negative] Negative *NA* (03/11/2013 15:04:49) U Benzodia Scr [Negative] Negative *NA* (03/11/2013 15:04:49) U Cocaine Scr [Negative] Negative *NA* (03/11/2013 15:04:49) U Opiate Scr [Negative] Negative *NA* (03/11/2013 15:04:49) U Phencyc Scr [Negative] Negative *NA* (03/11/2013 15:04:49) U Cannab Scr [Negative] Negative *NA* (03/11/2013 15:04:49) UDS Note See Note 3 *NA* (03/11/2013 15:04:49) Etoh (%) <.003 % 4 *NA* (03/11/2013 15:24:00) Ethanol Lvl <3 mg/dL 5 *NA* (03/11/2013 15:24:00) U Preg [Negative] Negative (03/11/2013 13:20:00) 1Result Comment: The eGFR is calculated using [...] values reflect the clinical guidelines of the [place] [employer]. 3Interpretive Data: Drugs reported as positive have not been confirmed by a second method and should be used for medical purposes only. To order confirmation, contact laboratory. note: Below are cut-off concentrations for all urine drugs of abuse performed in the laboratory. Some drugs listed in the table may not be included in this panel. Description Cut-off concentration Amphetamine 1000 ng/mL Barbiturates 200 ng/mL Benzodiazepines 300 ng/mL Cocaine metabolites 300 ng/mL Opiates 300 ng/mL Phencyclidine 25 ng/mL Propoxyphene 300 ng/mL Marijuana metabolites 50 ng/mL Methadone 300 ng/mL Urine alcohol 20 mg/dL 4Interpretive Data: Negative Range: <0.003% Toxic Range: >0.25% 5Interpretive Data: Negative Range: <3 mg/dL Toxic Range: >250 mg/dL HEMATOLOGY Most recent to oldest [Reference Range]: 1 2 3 WBC [3.7-10.4 K/CMM] 8.5 K/CMM (03/11/2013 19:57:00) 7.5 K/CMM (03/11/2013 13:25:00) RBC [4.20-5.40 M/CMM] 4.44 M/CMM (03/11/2013 19:57:00) 4.51 M/CMM (03/11/2013 13:25:00) Hgb [12.0-16.0 g/dL] 14.1 g/dL (03/11/2013 19:57:00) 14.1 g/dL (03/11/2013 13:25:00) Hct [36.0-48.0 %] 42.3 % (03/11/2013 19:57:00) 43.0 % (03/11/2013 13:25:00) MCV [81.0-99.0 fL] 95.4 fL (03/11/2013 19:57:00) 95.2 fL (03/11/2013 13:25:00) MCH [27.0-31.0 pg] 31.7 pg *HI* (03/11/2013:57:00) 31.3 pg *HI* (03/11/2013 13:25:00) MCHC [32.0-36.0 g/dL] 33.2 g/dL (03/11/2013:57:00) 32.9 g/dL (03/11/2013 13:25:00) RDW [11.5-14.5 %] 14.0 % (03/11/2013:57:00) 13.8 % (03/11/2013 13:25:00) Platelet [133-450 K/CMM] 239 K/CMM (03/11/2013:57:00) 223 K/CMM (03/11/2013 13:25:00) MPV [7.4-10.4 fL] 8.9 fL (03/11/2013 19:57:00) 9.0 fL (03/11/2013 13:25:00) Segs [45.0-75.0 %] 65.2 % (03/11/2013 19:57:00) 70.7 % (03/11/2013 13:25:00) Lymphocytes [20.0-40.0 %] 24.8 % (03/11/2013 19:57:00) 18.9 % *LOW* (03/11/2013 13:25:00) Monocytes [2.0-12.0 %] 6.2 % (03/11/2013 19:57:00) 7.4 % (03/11/2013 13:25:00) Eosinophils [0.0-4.0 %] 3.4 % (03/11/2013 19:57:00) 2.6 % (03/11/2013 13:25:00) Basophils [0.0-1.0 %] 0.4 % (03/11/2013 19:57:00) 0.4 % (03/11/2013 13:25:00) Segs-Bands # [1.5-8.1 K/CMM] 5.5 K/CMM (03/11/2013 19:57:00) 5.3 K/CMM (03/11/2013 13:25:00) Lymphocytes # [1.0-5.5 K/CMM] 2.1 K/CMM (03/11/2013 19:57:00) 1.4 K/CMM (03/11/2013 13:25:00) Monocytes # [0.0-0.8 K/CMM] 0.5 K/CMM (03/11/2013 19:57:00) 0.6 K/CMM (03/11/2013 13:25:00) Eosinophils # [0.0-0.5 K/CMM] 0.3 K/CMM (03/11/2013 19:57:00) 0.2 K/CMM (03/11/2013 13:25:00) Basophils # [0.0-0.2 K/CMM] 0.0 K/CMM (03/11/2013 19:57:00) 0.0 K/CMM (03/11/2013 13:25:00) PT [12.0-14.7 seconds] 22.3 seconds *HI* (03/15/2013 04:48:00) 21.7 seconds *HI* (03/14/2013 05:53:00) 18.2 seconds *HI* (03/13/2013 04:27:00) INR [0.85-1.17] 1.95 6 *HI* (03/15/2013 04:48:00) 1.88 7 *HI* (03/14/2013 05:53:00) 1.49 8 *HI* (03/13/2013 04:27:00) D-Dimer 0.29 ug/mL FEU 9 *NA* (03/11/2013 19:57:00) PTT [22.9-35.8 seconds] 68.6 seconds 10 *HI* (03/15/2013 12:36:00) 100.6 seconds 11, 12 *CRIT* (03/15/2013 04:48:00) 48.9 seconds 13 *HI* (03/14/2013 20:34:00) 6Interpretive Data: RECOMMENDED RANGES FOR PROTIME INR: 2.0-3.0 for most medical and surgical thromboembolic states. 2.5-3.5 for artificial heart valves and recurrent embolism. INR SHOULD BE USED ONLY FOR PATIENTS ON STABLE ANTICOAGULANT THERAPY. 7Interpretive Data: RECOMMENDED RANGES FOR PROTIME INR: 2.0-3.0 for most medical and surgical thromboembolic states. 2.5-3.5 for artificial heart valves and recurrent embolism. INR SHOULD BE USED ONLY FOR PATIENTS ON STABLE ANTICOAGULANT THERAPY. 8Interpretive Data: RECOMMENDED RANGES FOR PROTIME INR: 2.0-3.0 for most medical and surgical thromboembolic states. 2.5-3.5 for artificial heart valves and recurrent embolism. INR SHOULD BE USED ONLY FOR PATIENTS ON STABLE ANTICOAGULANT THERAPY. 9Interpretive Data: In DIC, quantitative D-Dimer is generally greater than 0.66 ug/mL FEU. Values of quantitative D-Dimer less than 0.40 ug/mL FEU have been reported to be associated with a low probability of deep vein thrombosis/pulmonary embolism. This test alone should not be used to rule out DVT/PE. 10Interpretive Data: Heparin Therapeutic Range: 57 - 92 Seconds 11Result Comment: Critical Result(s) called to Michael at 03/15/2013 06:06:03 CDT by sp. Read back OK. 12Interpretive Data: Heparin Therapeutic Range: 57 - 92 Seconds 13Interpretive Data: Heparin Therapeutic Range: 57 - 92 Seconds Procedures Procedures Date Related Diagnosis Cardiac pacemaker procedure
--- OUTSIDE RECORDS SUMMARY | 2018-12-29 07:27 | XMS REPORT | CCD ---
Author Author Auto Generated Organization [facility] Address Unknown Phone Unavailable Care Team Providers Care Doctor Of Podiatric Medicine Name Role Phone Cassie Alvarado CP Allergies, Adverse Reactions, Alerts Substance Reaction Status NKDA Active Problem List Condition Effective Dates Status Palpitations Active SVT - Supraventricular tachycardia Active Medications Medication Instructions Start Date End Date Status warfarin 2 mg oral 2 mg, 1 tab, PO, Daily, 30 tab, 08/28/2012 Ordered tablet Substitution Allowed, TAB morphine Sulfate 1 mg, 0.5 mL, Route: IV, Drug form: 08/27/2012 08/28/2012 Discontinued INJ, Q4H, Dosing Weight 79.176, kg, PRN as needed for pain, Priority: NOW, Start date: 08/27/12 16:39:00, Duration: 30 day, Stop date: 09/26/12 16:38:00 clindamycin 300 mg 300 mg, 1 cap, PO, TID, 15 cap, 08/28/2012 Ordered oral capsule Substitution Allowed Saline Flush 0.9% 5 ml, Route: IVP, Drug Form: INJ, 08/26/2012 08/28/2012 Discontinued Dosing Weight 72.727, kg, PRN, PRN Line Flush, Start date: 08/26/12 19:57:00, Duration: 30 day, Stop date: 09/25/12 18:56:00 Vicodin 5/500 oral 1 tab, PO, Q4-6H, PRN, 30 tab, 08/28/2012 09/02/2012 Ordered tablet Pain, Substitution Allowed, Maintenance warfarin 15 mg, 3 tab, Route: PO, Drug form: 08/28/2012 08/28/2012 Completed TAB, ONCE, Dosing Weight 79.176, kg, Priority: NOW, Start date: 08/28/12 17:35:00, Stop date: 08/28/12 17:35:00 vancomycin 1 gm, 250 mL, Route: IVPB, Drug 08/27/2012 08/28/2012 Discontinued form: INJ, ONCALL, PRN Other -See Comment, Start date: 08/27/12 9:28:00, Duration: 1 doses or times, Stop date: Limited # of times acetaminophen-hydroc 2 tab, Route: PO, Drug Form: TAB, 08/27/2012 08/28/2012 Discontinued odone 325 mg-5 mg Q6H, PRN Pain Score 6-10, Start oral tablet date: 08/27/12 15:50:00, Duration: 30 day, Stop date: 09/26/12 15:49:00 tramadol 50 mg oral 50 mg, 1 tab, Route: PO, Drug form: 08/27/2012 08/28/2012 Discontinued tablet TAB, Q6H, Dosing Weight 79.176, kg, PRN Pain Score 1-5, Priority: NOW, Start date: 08/27/12 15:24:00, Duration: 30 day, Stop date: 09/26/12 14:23:00 metoprolol 25 mg 25 mg, 1 tab, PO, Daily, 08/26/2012 Ordered oral tablet Substitution Allowed warfarin 10 mg oral 10 mg, 1 tab, PO, QNoon, 08/26/2012 Ordered tablet Substitution Allowed vancomycin 1 gm, 250 mL, Route: IVPB, Drug 08/27/2012 08/28/2012 Completed form: INJ, [id number], Start date: 08/27/12 16:00:00, Duration: 2 doses or times, Stop date: 08/28/12 4:00:00 Lopressor 25 mg, 1 tab, Route: PO, Drug form: 08/27/2012 08/28/2012 Discontinued TAB, BID, Start date: 08/27/12 17:00:00, Duration: 30 day, Stop date: 09/26/12 9:00:00 ondansetron 4 mg, 2 mL, Route: IVP, Drug form: 08/26/2012 08/28/2012 Discontinued INJ, Q6H, Dosing Weight 72.727, kg, PRN Nausea & Vomiting, Start date: 08/26/12 19:57:00, Duration: 30 day, Stop date: 09/25/12 19:56:00 temazepam 15 mg, 1 cap, Route: PO, Drug form: 08/26/2012 08/28/2012 Discontinued CAP, Bedtime, Dosing Weight 72.727, kg, PRN Insomnia, Start date: 08/26/12 19:57:00, Duration: 30 day, Stop date: 09/25/12 19:56:00 docusate 100 mg, 1 cap, Route: PO, Drug 08/27/2012 08/28/2012 Discontinued form: CAP, BID, Dosing Weight 72.727, kg, Start date: 08/27/12 9:00:00, Duration: 30 day, Stop date: 09/25/12 17:00:00 pantoprazole 40 mg, 1 tab, Route: PO, Drug form: 08/27/2012 08/28/2012 Discontinued ECTAB, Before Dinner, Dosing Weight 72.727, kg, Priority: Routine, Start date: 08/27/12 16:30:00, Duration: 30 day, Stop date: 09/25/12 16:30:00 Lovenox 70 mg, 0.7 mL, Route: SUB-Q, Drug 08/26/2012 08/27/2012 Discontinued form: INJ, [id number], Dosing Weight 72.727, kg, Start date: 08/26/12 20:00:00, Duration: 30 day, Stop date: 09/25/12 8:00:00 nitroglycerin 0.4 mg 0.4 mg, 1 tab, Route: SL, Drug 08/26/2012 08/28/2012 Discontinued sublingual tablet form: TAB, Q5Min, PRN Chest Pain, Start date: 08/26/12 20:07:00, Duration: 30 day, Stop date: 09/25/12 19:06:00 atropine 0.5 mg, 5 mL, Route: IVP, Drug 08/26/2012 08/28/2012 Discontinued form: INJ, PRN, PRN Bradycardia, Start date: 08/26/12 20:07:00, Duration: 30 day, Stop date: 09/25/12 19:06:00 tramadol 50 mg oral 100 mg, 2 tab, Route: PO, Drug 08/27/2012 08/28/2012 Discontinued tablet form: TAB, Q6H, PRN Pain Score 4-6, Start date: 08/27/12 15:27:00, Duration: 30 day, Stop date: 09/26/12 15:26:00 Lovenox 70 mg, 0.7 mL, Route: SUB-Q, Drug 08/26/2012 08/26/2012 Completed form: INJ, ONCE, Dosing Weight 72.727, kg, Priority: STAT, Start date: 08/26/12 18:11:00, Stop date: 08/26/12 18:11:00 Vital Signs Most recent to oldest [Reference Range]: 1 2 3 Height 170.18 cm (08/26/2012 21:09:00) 170.18 cm (08/26/2012 15:07:00) Temperature Oral [96.4-99.1 DegF] 98.0 DegF (08/28/2012 16:00:00) 97.8 DegF (08/28/2012 12:00:00) 98.1 DegF (08/28/2012 08:00:00) Systolic Blood Pressure [90-140 mmHg] 127 mmHg (08/28/2012 16:00:00) 113 mmHg (08/28/2012 12:00:00) 130 mmHg (08/28/2012 08:00:00) Diastolic Blood Pressure [60-90 mmHg] 82 mmHg (08/28/2012 16:00:00) 70 mmHg (08/28/2012 12:00:00) 79 mmHg (08/28/2012 08:00:00) Respiratory Rate [14-20 BRMIN] 18 BRMIN (08/28/2012 16:00:00) 18 BRMIN (08/28/2012 12:00:00) 18 BRMIN (08/28/2012 08:00:00) Peripheral Pulse Rate [60-100 bpm] 94 bpm (08/28/2012 16:00:00) 91 bpm (08/28/2012 12:00:00) 101 bpm *HI* (08/28/2012 08:00:00) Weight 79.176 kg (08/26/2012 21:09:00) 72.727 kg (08/26/2012 15:07:00) Results URINALYSIS Most recent to oldest [Reference Range]: 1 2 3 UA Turbidity [Clear] Clear (08/26/2012 15:46:00) UA Color Ltyellow *NA* (08/26/2012 15:46:00) UA pH [5.0-8.0] 8.0 (08/26/2012 15:46:00) UA Spec Grav [<=1.030] 1.003 (08/26/2012 15:46:00) UA Glucose [Negative mg/dL] Negative mg/dL *NA* (08/26/2012 15:46:00) UA Blood [Negative] Negative (08/26/2012 15:46:00) UA Ketones [Negative mg/dL] Negative mg/dL *NA* (08/26/2012 15:46:00) UA Protein [Negative mg/dL] Negative mg/dL (08/26/2012 15:46:00) UA Urobilinogen [0.1-1.0 mg/dL] <=1.0 mg/dL *NA* (08/26/2012 15:46:00) UA Bili [Negative] Negative *NA* (08/26/2012 15:46:00) UA Leuk Est [Negative] Negative (08/26/2012 15:46:00) UA Nitrite [Negative] Negative (08/26/2012 15:46:00) UA Sq Epi [Few /LPF] Occasional /LPF *NA* (08/26/2012 15:46:00) CHEMISTRY Most recent to oldest [Reference Range]: 1 2 3 Sodium Lvl [135-145 mEq/L] 144 mEq/L (08/27/2012 03:14:00) Potassium Lvl [3.5-5.1 mEq/L] 3.6 mEq/L (08/27/2012 03:14:00) Chloride Lvl [95-109 mEq/L] 108 mEq/L (08/27/2012 03:14:00) CO2 [24-32 mEq/L] 27 mEq/L (08/27/2012 03:14:00) AGAP [10.0-20.0 mEq/L] 12.6 mEq/L (08/27/2012 03:14:00) Creatinine Lvl [0.5-1.4 mg/dL] 0.8 mg/dL (08/27/2012 03:14:00) eGFR 101 mL/min/1.73m2 1 *NA* (08/27/2012 03:14:00) BUN [7-22 mg/dL] 14 mg/dL (08/27/2012 03:14:00) Glucose Lvl [70-99 mg/dL] 92 mg/dL 2 (08/27/2012 03:14:00) Calcium Lvl [8.5-10.5 mg/dL] 8.4 mg/dL *LOW* (08/27/2012 03:14:00) CK MB [0.5-3.6 ng/mL] 1.2 ng/mL (08/26/2012:46:00) U Preg [Negative] Negative (08/26/2012:46:00) 1Result Comment: The eGFR is calculated using [...] values reflect the clinical guidelines of the [place] [employer]. HEMATOLOGY Most recent to oldest [Reference Range]: 1 2 3 WBC [3.7-10.4 K/CMM] 7.4 K/CMM (08/26/2012 15:46:00) RBC [4.20-5.40 M/CMM] 4.79 M/CMM (08/26/2012:46:00) Hgb [12.0-16.0 g/dL] 15.0 g/dL (08/26/2012:46:00) Hct [36.0-48.0 %] 44.6 % (08/26/2012:46:00) MCV [81.0-99.0 fL] 93.1 fL (08/26/2012:46:00) MCH [27.0-31.0 pg] 31.4 pg *HI* (08/26/2012 15:46:00) MCHC [32.0-36.0 g/dL] 33.7 g/dL (08/26/2012 15:46:00) RDW [11.5-14.5 %] 13.8 % (08/26/2012 15:46:00) Platelet [133-450 K/CMM] 183 K/CMM (08/26/2012 15:46:00) MPV [7.4-10.4 fL] 9.8 fL (08/26/2012 15:46:00) Segs [45.0-75.0 %] 64.0 % (08/26/2012 15:46:00) Lymphocytes [20.0-40.0 %] 24.3 % (08/26/2012 15:46:00) Monocytes [2.0-12.0 %] 8.4 % (08/26/2012 15:46:00) Eosinophils [0.0-4.0 %] 2.2 % (08/26/2012 15:46:00) Basophils [0.0-1.0 %] 1.1 % *HI* (08/26/2012 15:46:00) Segs-Bands # [1.5-8.1 K/CMM] 4.7 K/CMM (08/26/2012 15:46:00) Lymphocytes # [1.0-5.5 K/CMM] 1.8 K/CMM (08/26/2012 15:46:00) Monocytes # [0.0-0.8 K/CMM] 0.6 K/CMM (08/26/2012 15:46:00) Eosinophils # [0.0-0.5 K/CMM] 0.2 K/CMM (08/26/2012 15:46:00) Basophils # [0.0-0.2 K/CMM] 0.1 K/CMM (08/26/2012 15:46:00) PT [12.0-14.7 seconds] 16.5 seconds *HI* (08/28/2012 04:47:00) 18.7 seconds *HI* (08/27/2012 03:14:00) 17.0 seconds *HI* (08/26/2012 15:46:00) INR [0.85-1.17] 1.31 3 *HI* (08/28/2012 04:47:00) 1.55 4 *HI* (08/27/2012 03:14:00) 1.37 5 *HI* (08/26/2012 15:46:00) PTT [22.9-35.8 seconds] 40.0 seconds 6 *HI* (08/28/2012 04:47:00) 44.1 seconds 7 *HI* (08/27/2012 03:14:00) 38.2 seconds 8 *HI* (08/26/2012 15:46:00) 3Interpretive Data: RECOMMENDED RANGES FOR PROTIME INR: 2.0-3.0 for most medical and surgical thromboembolic states. 2.5-3.5 for artificial heart valves and recurrent embolism. INR SHOULD BE USED ONLY FOR PATIENTS ON STABLE ANTICOAGULANT THERAPY. 4Interpretive Data: RECOMMENDED RANGES FOR PROTIME INR: 2.0-3.0 for most medical and surgical thromboembolic states. 2.5-3.5 for artificial heart valves and recurrent embolism. INR SHOULD BE USED ONLY FOR PATIENTS ON STABLE ANTICOAGULANT THERAPY. 5Interpretive Data: RECOMMENDED RANGES FOR PROTIME INR: 2.0-3.0 for most medical and surgical thromboembolic states. 2.5-3.5 for artificial heart valves and recurrent embolism. INR SHOULD BE USED ONLY FOR PATIENTS ON STABLE ANTICOAGULANT THERAPY. 6Interpretive Data: Heparin Therapeutic Range: 57 - 92 Seconds 7Interpretive Data: Heparin Therapeutic Range: 57 - 92 Seconds 8Interpretive Data: Heparin Therapeutic Range: 57 - 92 Seconds
--- OUTSIDE RECORDS SUMMARY | 2018-12-29 07:27 | XMS REPORT | Continuity of Care Document ---
Author Author [facility] Interface Address Unknown Phone Unavailable Problems Problem Status Onset Date Classification Date Reported Comments Source FOLLOW UP Active 02/09/2018 [facility] Leakage of heart valve prosthesis, initial encounter 01/10/2018 04/13/2018 [facility] LEAKY MITRAL VALVE Active 12/04/2017 [facility] UNK Active 10/09/2017 [facility] AFIB Active 08/15/2017 [facility] CCL/*GEN ANESTHESIA*/EPS PVI ABLATION/CA Active 08/15/2017 [facility] TYPICAL AFLUTTER, PAROXYSMAL AFIB Active 07/28/2017 [facility] CCL/EPS ATACH/AFLUTTER ABLATION/DUAL PMA Active 07/28/2017 [facility] HEART Active 07/03/2015 [facility] Discharge Diagnosis: Dizziness 06/10/2015 06/13/2015 [facility] DIZZINESS Active 06/10/2015 [facility] AFIB, AFLUTTER Active 08/15/2014 [facility] CCL/GEN/EPS, PVI ABLATION/CARTO/DX: AFIB Active 08/15/2014 [facility] AFIB/ ATRO FLUTTER Active 08/15/2014 [facility] Discharge Diagnosis: Heart palpitations 08/09/2014 08/12/2014 [facility] ANXIETY Active 08/09/2014 [facility] Discharge Diagnosis: Chest pain 07/26/2014 07/29/2014 [facility] ANXIETY ATTACK Active 07/25/2014 [facility] CHEST PAIN, NUMBNESS Active 03/10/2013 [facility] SOB Active 03/10/2013 [facility] DR SENT Active 09/30/2012 [facility] BRADYCARDIA Active 08/25/2012 [facility] CHEST PAIN Active 08/25/2012 [facility] SVT Active 06/04/2012 [facility] AF - Atrial fibrillation Active Problem 04/13/2018 [facility] Mitral valve disease Resolved Problem 04/13/2018 [facility] MVR - Mitral valve replacement Active Problem 04/13/2018 [facility] Pacemaker Active Problem 04/13/2018 [facility] Palpitations Active Problem 04/13/2018 [facility] SVT - Supraventricular tachycardia Active Problem 04/13/2018 [facility] AF - Atrial fibrillation Active Problem 03/17/2013 [facility] Cardiac pacemaker Active Problem 03/17/2013 [facility] MVR - Mitral valve replacement Active Problem 03/17/2013 [facility] Palpitations Active Problem 03/17/2013 [facility] SVT - Supraventricular tachycardia Active Problem 03/17/2013 [facility] Cardiac pacemaker Active Problem 10/15/2017 [facility] Final: 07/30/2015 [facility] Atrial fibrillation Resolved Problem 04/13/2018 [facility] Unspecified atrial fibrillation 04/13/2018 [facility] Long QT syndrome 04/13/2018 [facility] OTHER GENERAL SYMPTOMS Active [facility] CARDIAC DYSRHYTHMIAS NEC Active [facility] ATRIAL FLUTTER Active [facility] CHEST PAIN NOS Active [facility] MALFUNC CARDIAC PACEMAKE Active [facility] Medications Medication Details Route Status Patient Instructions Ordering Provider Order Date Source Non-Formulary Home Medication PO, Daily, Refill(s) 0 Active 01/02/2018 [facility] dofetilide 250 mcg oral capsule 500 microgram=2 cap, PO, Q12H, 0 Refill(s) Active 10/12/2017 [facility] Coumadin 10 mg, 1 tab, Route: PO, Drug form: TAB, Q5PM, Dosing Weight 80.909, kg, Start date: 10/11/17 17:00:00 UI UX WEB DEVELOPER, Duration: 30 day, Stop date: 11/09/17 17:00:00 CSTNotes: Nurse to ensure documentation of patient education per anticoagulation policy. Avoid large intake of vitamin-K containing foods diet. (Same As: Coumadin) WASTE: F/P - P Waste Black; E - P Waste Black No Longer Active 10/11/2017 [facility] heparin additive 25,000 unit [14 unit/kg/hr] + Premix Diluent Dextrose 5% 500 mL 500 mL, Rate: 19.8 ml/hr, Infuse over: 25.3 hr, Route: IV, Dosing Weight 70.7 kg, Total Volume: 500 mL, Start date: 10/11/17 12:10:00 UI UX WEB DEVELOPER, Duration: 30 day, Stop date: 11/10/17 12:09:00 UI U[employer] WEB DEVELOPER, 1.85, m2 No Longer Active 10/11/2017 [facility] Saline Flush 0.9% 10 ml, Route: IVP, Drug Form: INJ, Dosing Weight 80.909, kg, Q12H, Start date: 10/10/17 21:00:00 UI UX WEB DEVELOPER, Duration: 30 day, Stop date: 11/09/17 9:00:00 CSTNotes: (Same as: BD Posiflush) No Longer Active 10/11/2017 [facility] dofetilide 500 microgram, 2 cap, Route: PO, Drug form: CAP, Q12H, Dosing Weight 80.909, kg, Start date: 10/10/17 21:00:00 UI UX WEB DEVELOPER, Duration: 30 day, Stop date: 11/09/17 9:00:00 CSTNotes: (Same as: Tikosyn) Providers should enter the orders via the "Dofetilide Initiation Orders MPP" to ensure compliance with the REMS program. No Longer Active 10/11/2017 [facility] metoprolol tartrate 50 mg, 1 tab, Route: PO, Drug form: TAB, BID, Dosing Weight 80.909, kg, Start date: 10/10/17 17:00:00 UI UX WEB DEVELOPER, Duration: 30 day, Stop date: 11/09/17 9:00:00 CSTNotes: (Same as: Lopressor) No Longer Active 10/10/2017 [facility] Saline Flush 0.9% 10 ml, Route: IVP, Drug Form: INJ, Dosing Weight 80.909, kg, PRN, PRN Line Flush, Start date: 10/10/17 16:14:00 UI UX WEB DEVELOPER, Duration: 30 day, Stop date: 11/09/17 16:13:00 CSTNotes: (Same as: BD Posiflush) No Longer Active 10/10/2017 [facility] Acetaminophen 325 MG / Hydrocodone Bitartrate 5 MG Oral Tablet 1 tab, Route: PO, Drug Form: TAB, Dosing Weight 80.909, kg, Q4H, PRN Pain Score 4-6, Start date: 10/10/17 16:14:00 UI UX WEB DEVELOPER, Duration: 30 day, Stop date: 11/09/17 16:13:00 CSTNotes: (Same as: [place] 325/5) Do not exceed 4gm/day of acetaminophen. No Longer Active 10/10/2017 [facility] Nitroglycerin 0.4 mg, 1 tab, Route: SL, Drug form: TAB, Q5Min, Dosing Weight 80.909, kg, PRN Chest Pain, Start date: 10/10/17 16:14:00 UI UX WEB DEVELOPER, Duration: 3 doses or times, Stop date: Limited # of timesNotes: (Same as: Nitroquick, Nitrostat) "Do Not Crush" Sublingual tablet No Longer Active 10/10/2017 [facility] Morphine 4 mg, 2 mL, Route: IVP, Drug form: SOLN, Q2H, Dosing Weight 80.909, kg, PRN Pain Score 7-10, Start date: 10/10/17 16:14:00 UI UX WEB DEVELOPER, Duration: 30 day, Stop date: 11/09/17 16:13:00 UI UX WEB DEVELOPER No Longer Active 10/10/2017 [facility] Diphenhydramine 25 mg, 1 tab, Route: PO, Drug form: TAB, Bedtime, Dosing Weight 80.909, kg, PRN Insomnia, Start date: 10/10/17 16:14:00 UI UX WEB DEVELOPER, Duration: 30 day, Stop date: 11/09/17 16:13:00 UI UX WEB DEVELOPER No Longer Active 10/10/2017 [facility] Ondansetron 4 mg, 1 tab, Route: PO, Drug form: TAB, Q8H, Dosing Weight 80.909, kg, PRN Nausea & Vomiting, Start date: 10/10/17 16:14:00 UI UX WEB DEVELOPER, Duration: 30 day, Stop date: 11/09/17 16:13:00 CSTNotes: (Same as: Zofran) No Longer Active 10/10/2017 [facility] Temazepam 15 mg, 1 cap, Route: PO, Drug form: CAP, Bedtime, Dosing Weight 80.909, kg, PRN Insomnia, Start date: 10/10/17 16:14:00 UI UX WEB DEVELOPER, Duration: 30 day, Stop date: 11/09/17 16:13:00 CSTNotes: (Same As: Restoril) No Longer Active 10/10/2017 [facility] Coumadin 12.5 mg, PO, Daily, 0 Refill(s) Active 10/10/2017 [facility] metoprolol tartrate 50 mg, PO, BID, 0 Refill(s) Active 10/10/2017 [facility] Coumadin 12 mg, 2 tab, Route: PO, Drug form: TAB, Q5PM, Dosing Weight 80.909, kg, Start date: 09/02/17 17:00:00 CDT, Duration: 1 doses or times, Stop date: 09/02/17 17:00:00 CDTNotes: Nurse to ensure documentation of patient education per anticoagulation policy. Avoid large intake of vitamin-K containing foods diet. WASTE: F/P - P Waste Black; E - P Waste Black (Same As: Coumadin) Inactive 09/02/2017 [facility] pantoprazole 40 mg, 1 tab, Route: PO, Drug form: ECTAB, Daily, Dosing Weight 80.909, kg, Start date: 09/02/17 9:00:00 CDT, Duration: 14 day, Stop date: 09/15/17 9:00:00 UI UX WEB DEVELOPER Inactive 09/02/2017 [facility] minocycline 100 mg oral capsule 100 mg=1 cap, PO, [id number], X 5 day, # 10 cap, 0 Refill(s) Active 09/02/2017 [facility] acetaminophen-codeine 300 mg-30 mg oral tablet 1 tab, PO, Q6H, PRN pain, X 7 day, # 28 tab, 0 Refill(s) Active 09/02/2017 [facility] sucralfate 1 g oral tablet 1 gm=1 tab, PO, TID, # 42 tab, 0 Refill(s) Active 09/02/2017 [facility] pantoprazole 40 mg oral enteric coated tablet 40 mg=1 tab, PO, Daily, # 30 tab, 0 Refill(s) Active 09/02/2017 [facility] tramadol 50 mg oral tablet 50 mg, 1 tab, Route: PO, Drug form: TAB, ONCE, Dosing Weight 80.909, kg, PRN Pain Score 6-10, Start date: 09/01/17 21:59:00 CDTNotes: Not to exceed 400mg/day. (Same As: Ultram) Inactive 09/02/2017 [facility] metoprolol tartrate 100 mg, 1 tab, Route: PO, Drug form: TAB, Q12H, Dosing Weight 80.909, kg, Start date: 09/01/17 21:00:00 CDT, Duration: 30 day, Stop date: 10/01/17 9:00:00 CSTNotes: (Same as: Lopressor) No Longer Active 09/02/2017 [facility] Saline Flush 0.9% 10 ml, Route: IVP, Drug Form: INJ, Dosing Weight 80.909, kg, Q12H, Start date: 09/01/17 21:00:00 CDT, Duration: 30 day, Stop date: 10/01/17 9:00:00 CSTNotes: Same as: BD Posiflush Sterile No Longer Active 09/02/2017 [facility] sucralfate 1 gm, 1 tab, Route: PO, Drug form: TAB, Q12H, Dosing Weight 80.909, kg, Start date: 09/01/17 21:00:00 CDT, Duration: 14 day, Stop date: 09/15/17 9:00:00 CSTNotes: May interfere w/enteral feeds - Take 1 hr before or 2 hr after antacids, dairy pdt, meals & minerals - On empty stomach. No Longer Active 09/02/2017 [facility] minocycline 100 mg, 1 cap, Route: PO, Drug form: CAP, [id number], Dosing Weight 80.909, kg, Start date: 09/01/17 18:00:00 CDT, Duration: 7 day, Stop date: 09/08/17 6:00:00 CSTNotes: (Same as:Minocin) No milk/antacids/iron. No Longer Active 09/01/2017 [facility] morphine Sulfate 2 mg, Route: IVP, ONCE, Dosing Weight 80.909, kg, Start date: 09/01/17 17:49:00 CDT, Stop date: 09/01/17 17:49:00 CDT Inactive 09/01/2017 [facility] morphine Sulfate 2 mg, 0.5 mL, Route: IVP, Drug form: INJ, Q4H, Dosing Weight 80.909, kg, PRN Pain Score 7-10, Start date: 09/01/17 17:47:00 CDT, Duration: 2 day, Stop date: 09/03/17 17:46:00 CDTNotes: (Same as:MORPhine Sulfate) No Longer Active 09/01/2017 [facility] Saline Flush 0.9% 10 ml, Route: IVP, Drug Form: INJ, Dosing Weight 80.909, kg, PRN, PRN Line Flush, Start date: 09/01/17 14:58:00 CDT, Duration: 30 day, Stop date: 10/01/17 13:57:00 CSTNotes: Same as: BD Posiflush Sterile No Longer Active 09/01/2017 [facility] 0 (ANES) Route: IV, Drug form: INJ, ONCE, Stop date: 09/01/17 14:02:00 CDT Inactive 09/01/2017 [facility] 0 (ANES) Route: IV, Drug form: INJ, ONCE, Stop date: 09/01/17 12:26:00 CDT Inactive 09/01/2017 [facility] 0 (ANES) Route: IV, Drug form: INJ, ONCE, Stop date: 09/01/17 10:56:00 CDT Inactive 09/01/2017 [facility] ANES ondansetron 4 mg, 2 mL, Route: IVP, Drug form: INJ, ONCE, Dosing Weight 80.909, kg, PRN Nausea & Vomiting, Start date: 09/01/17 9:25:00 CDTNotes: (Same as: Zofran) MEDICATION WASTE Product Size: 4 mg Product Wasted: ___ mg No Longer Active 09/01/2017 [facility] ANES fentaNYL 25 microgram, 0.5 mL, Route: IVP, Drug form: INJ, Q5Min, Dosing Weight 80.909, kg, PRN Pain Score 4-6, Priority: Routine, Start date: 09/01/17 9:25:00 CDT, Duration: 4 doses or times, Stop date: 7 17:00:00 CDTNotes: (Same as: Sublimaze) Preservative free. Inactive 09/01/2017 [facility] ANES labetalol 10 mg, 2 mL, Route: IVP, Drug form: INJ, Q5Min, Dosing Weight 80.909, kg, PRN Elevated BP, Start date: 09/01/17 9:25:00 CDT, Duration: 5 doses or times, Stop date: 09/01/17 17:00:00 CDT Inactive 09/01/2017 [facility] ANES acetaminophen 1,000 mg, 100 mL, Route: IVPB, Drug form: INJ, ONCE, Dosing Weight 80.909, kg, PRN Pain Score 1-3, Start date: 09/01/17 9:25:00 CDT, Duration: 1 doses or times, Stop date: Limited # of timesNotes: Infuse over 15 minutes Do not exceed 4gm/day of acetaminophen MEDICATION WASTE Product Size: 1000 mg Product Wasted: ___ mg No Longer Active 09/01/2017 [facility] ANES flumazenil 0.2 mg, 2 mL, Route: IVP, Drug form: INJ, PRN, Dosing Weight 80.909, kg, PRN Benzodiazepine Reversal, Initial dose, Start date: 09/01/17 9:25:00 CDT, Duration: 30 day, Stop date: 10/01/17 8:24:00 UI UX WEB DEVELOPER Notes: (Same as: Romazicon) No Longer Active 09/01/2017 [facility] ANES naloxone 0.4 mg, 1 mL, Route: IVP, Drug form: INJ, Q2MIN, Dosing Weight 80.909, kg, PRN Narcotic Reversal, Start date: 09/01/17 9:25:00 CDT, Duration: 8 doses or times, Stop date: 09/01/17 17:00:00 CDTNotes: (Same as: Narcan) Inactive 09/01/2017 [facility] 0 (ANES) Route: IV, Drug form: SOLN, ONCE, Stop date: 09/01/17 9:16:00 CDT Inactive 09/01/2017 [facility] sodium chloride 0.9% 1000 ml INJ (ANES) Route: IV, Total Volume: 1,000, Start date: 09/01/17 8:20:00 CDT, Stop date: 09/01/17 9:20:00 CDT Inactive 09/01/2017 [facility] sodium chloride 0.9% 1000 ml INJ (ANES) Route: IV, Total Volume: 1,000, Start date: 09/01/17 8:17:00 CDT, Stop date: 09/01/17 9:17:00 CDT Inactive 09/01/2017 [facility] sodium chloride 0.9% 1000 ml INJ 1,000 mL 1,000 mL, Rate: 100 ml/hr, Infuse over: 10 hr, Route: IV, Dosing Weight 80.909 kg, Total Volume: 1,000, Start date: 09/01/17 6:01:00 CDT, Duration: 30 day, Stop date: 10/01/17 6:00:00 UI UX WEB DEVELOPER No Longer Active 09/01/2017 [facility] 0.8 ML Enoxaparin sodium 100 MG/ML Prefilled Syringe [Lovenox] 80 mg, SUB-Q, Q12H, X 7 day, # 14 ea, 0 Refill(s) Active 08/12/2017 [facility] metoprolol tartrate 100 mg oral tablet 100 mg=1 tab, PO, BID, # 180 tab, 1 Refill(s) Active 08/12/2017 [facility] Cefazolin 1 gm, Route: IVPB, Drug form: PDR/INJ, ONCE, Dosing Weight 78.636, kg, Start date: 08/12/17 10:13:00 CDT, Stop date: 08/12/17 10:13:00 CDT, ABX Indication: Open Wound ProphylaxisNotes: (Same As: Edwar Flores) MEDICATION WASTE Product Size: 1000 mg Product Wasted: ___ mg Inactive 08/12/2017 [facility] sodium chloride 0.9% 1000 ml INJ 1,000 mL 1,000 mL, Rate: 100 ml/hr, Infuse over: 10 hr, Route: IV, Dosing Weight 78.636 kg, Total Volume: 1,000, Start date: 08/12/17 10:12:00 CDT, Duration: 30 day, Stop date: 09/11/17 10:11:00 UI UX WEB DEVELOPER No Longer Active 08/12/2017 [facility] Coumadin 2 mg, 1 tab, Route: PO, Drug form: TAB, Q5PM, Start date: 07/27/15 17:00:00, Duration: 1 doses or times, Stop date: 07/27/15 17:00:00Notes: Nurse to ensure documentation of patient education per anticoa gulation policy. Avoid large intake of vitamin-K containing foods diet. (Same As: Coumadin) Inactive 07/27/2015 [facility] influenza virus vaccine, inactivated 0.5 mL, Route: IM, Drug Form: SUSP, Daily, Start date: 07/27/15 15:00:00, Duration: 1 doses or times, Stop date: 07/27/15 15:00:00Notes: (Same as: Fluzone Quadrivalent) For 3 years of age and older (0.5 mL IM) Shake well before use Inactive 07/27/2015 [facility] minocycline 100 mg oral capsule 100 mg=1 cap, PO, Q12H, X 7 day, # 14 cap, 0 Refill(s) Active 07/27/2015 [facility] Acetaminophen 300 MG / Codeine Phosphate 30 MG Oral Tablet [Tylenol with Codeine #3] 1 tab, PO, Q4H, PRN Pain Score 1-3, X 5 day, # 30 tab, 0 Refill(s) Active 07/27/2015 [facility] Pneumovax 23 0.5 mL, Route: IM, Drug Form: INJ, Daily, Start date: 07/27/15 11:00:00, Duration: 1 doses or times, Stop date: 07/27/15 11:00:00Notes: (Same as: Pneumovax 23) Refrigerate Inactive 07/27/2015 [facility] Potassium Chloride 20 MEQ Extended Release Tablet 20 mEq, 1 tab, Route: PO, Drug form: ERTAB, ONCE, Dosing Weight 80.625, kg, Start date: 07/27/15 10:00:00, Stop date: 07/27/15 10:00:00Notes: (Same as: K-Dur 20) "Do Not Crush" With food and full glass of water Inactive 07/27/2015 [facility] Mag-Ox 400 400 mg, 1 tab, Route: PO, Drug form: TAB, ONCE, Dosing Weight 80.625, kg, Start date: 07/27/15 10:00:00, Stop date: 07/27/15 10:00:00Notes: (Same as: Mag-Ox 400) Magnesium oxide [id number] elemental ma gnesium Dose=____mg magnesium oxide (___mg elemental magnesium) Inactive 07/27/2015 [facility] Atenolol 100 MG Oral Tablet 100 mg, 2 tab, Route: PO, Drug form: TAB, Daily, Dosing Weight 80.625, kg, Start date: 07/27/15 9:00:00, Duration: 30 day, Stop date: 08/25/15 9:00:00Notes: (Same As:Tenormin) Inactive 07/27/2015 [facility] pneumococcal capsular polysaccharide type 1 vaccine / pneumococcal capsular polysaccharide type 10A vaccine / pneumococcal capsular polysaccharide type 11A vaccine / pneumococcal capsular polysaccharide type 12F vaccine / pneumococcal capsular polysacchar 0.5 mL, Route: IM, Drug Form: INJ, Daily, Start date: 07/27/15 9:00:00, Duration: 1 doses or times, Stop date: 07/27/15 9:00:00Notes: (Same as: Pneumovax 23) Refrigerate Inactive 07/27/2015 [facility] Ondansetron 4 mg, 2 mL, Route: IVP, Drug form: INJ, Q6H, Dosing Weight 80.625, kg, PRN Nausea & Vomiting, Start date: 07/26/15 22:49:00, Duration: 30 day, Stop date: 08/25/15 22:48:00Notes: (Same as: Zofran) MEDICATION WASTE Product Size: 4 mg Product Wasted: ___ mg No Longer Active 07/27/2015 [facility] Cefazolin 2 gm, 100 mL, Route: IVPB, Drug form: INJ, ABXQ8H, Dosing Weight 80.625, kg, Start date: 07/26/15 21:00:00, Duration: 30 day, Stop date: 08/25/15 13:00:00Notes: Same as: Ancef No Longer Active 07/27/2015 [facility] Morphine 2 mg, 1 mL, Route: IVP, Drug form: INJ, Q2H, Dosing Weight 80.625, kg, PRN Pain Score 7-10, Start date: 07/26/15 20:56:00, Duration: 30 day, Stop date: 08/25/15 20:55:00Notes: (Same as:MORPhine Sulfate) No Longer Active 07/27/2015 [facility] Acetaminophen 300 MG / Codeine Phosphate 30 MG Oral Tablet [Tylenol with Codeine #3] 1 tab, Route: PO, Drug Form: TAB, Dosing Weight 80.625, kg, Q4H, PRN Pain Score 1-3, Start date: 07/26/15 20:56:00, Duration: 30 day, Stop date: 08/25/15 20:55:00Notes: Do not exceed 4gm/day of acetaminophen. (Same as: Tylenol with Codeine # 3) No Longer Active 07/27/2015 [facility] Hydralazine 10 mg, 0.5 mL, Route: IVP, Drug form: INJ, Q20Min, Dosing Weight 80.625, kg, PRN Elevated BP, Start date: 07/26/15 18:20:00, Duration: 2 doses or times, Stop date: Limited # of timesNotes: (Same as: Apresoline) Push over 5 minutes No Longer Active 07/26/2015 [facility] Labetalol 10 mg, 2 mL, Route: IVP, Drug form: INJ, Q5Min, Dosing Weight 80.625, kg, PRN Elevated BP, Start date: 07/26/15 18:20:00, Duration: 5 doses or times, Stop date: Limited # of times No Longer Active 07/26/2015 [facility] Hydromorphone 0.5 mg, 0.25 mL, Route: IVP, Drug form: INJ, Q5Min, Dosing Weight 80.625, kg, PRN Pain Score 7-10, Start date: 07/26/15 18:20:00, Duration: 4 doses or times, Stop date: Limited # of timesNotes: Same as: Dilaudid No Longer Active 07/26/2015 [facility] Ondansetron 4 mg, 2 mL, Route: IVP, Drug form: INJ, ONCE, Dosing Weight 80.625, kg, PRN Nausea & Vomiting, Start date: 07/26/15 18:20:00Notes: (Same as: Zofran) MEDICATION WASTE Product Size: 4 mg Product Wasted: ___ mg No Longer Active 07/26/2015 [facility] Cefazolin 2 gm, Route: IVPB, ONCE, Dosing Weight 80.625, kg, Start date: 07/26/15 16:15:00, Stop date: 07/26/15 16:15:00 Inactive 07/26/2015 [facility] Cefazolin 2 gm, Route: IVPB, ONCE, Dosing Weight 80.625, kg, Start date: 07/26/15 16:14:00, Stop date: 07/26/15 16:14:00 Inactive 07/26/2015 [facility] Ativan 1 mg, Route: PO, Drug form: TAB, ONCE, Dosing Weight 79.545, kg, Priority: STAT, Start date: 06/10/15 15:48:00, Stop date: 06/10/15 15:48:00 Inactive 06/10/2015 [facility] Atenolol 100 MG Oral Tablet 100 mg, 1 tab, Route: PO, Drug form: TAB, Daily, Dosing Weight 75, kg, Start date: 08/24/14 9:00:00, Duration: 30 day, Stop date: 09/22/14 9:00:00Notes: (Same As:Tenormin) Inactive 08/24/2014 [facility] Coumadin 15 mg, 3 tab, Route: PO, Drug form: TAB, Q5PM, Dosing Weight 75, kg, Start date: 08/23/14 18:00:00, Duration: 1 doses or times, Stop date: 08/23/14 18:00:00Notes: Nurse to ensure documentation of pat ient education per anticoagulation policy. Avoid large intake of vitamin-K containing foods diet. (Same As: Coumadin) Inactive 08/23/2014 [facility] Morphine 2 mg, 1 mL, Route: IVP, Drug form: INJ, Q2H, Dosing Weight 75, kg, PRN Pain Score 7-10, Start date: 08/23/14 16:38:00, Duration: 30 day, Stop date: 09/22/14 16:37:00Notes: (Same as:MORPhine Sulfate) No Longer Active 08/23/2014 [facility] Protamine Sulfate (MCC) 25 mg, Route: IV, Drug form: INJ, ONCE, Dosing Weight 75, kg, Start date: 08/23/14 16:06:00, Stop date: 08/23/14 16:06:00 Inactive 08/23/2014 [facility] Labetalol 10 mg, 2 mL, Route: IVP, Drug form: INJ, Q5Min, Dosing Weight 75, kg, PRN Elevated BP, Start date: 08/23/14 14:31:00, Duration: 5 doses or times, Stop date: 08/23/14 17:00:00 Inactive 08/23/2014 [facility] Fentanyl 50 microgram, 1 mL, Route: IVP, Drug form: INJ, Q5Min, Dosing Weight 75, kg, PRN Pain Score 7-10, Start date: 08/23/14 14:31:00, Duration: 2 doses or times, Stop date: 08/23/14 17:00:00Notes: (Same a s: Sublimaze) Preservative free. Inactive 08/23/2014 [facility] Hydromorphone 0.5 mg, 0.25 mL, Route: IVP, Drug form: INJ, Q5Min, Dosing Weight 75, kg, PRN Pain Score 7-10, Start date: 08/23/14 14:31:00, Duration: 4 doses or times, Stop date: 08/23/14 17:00:00Notes: Same as: Dilaudid Inactive 08/23/2014 [facility] Morphine 2 mg, 1 mL, Route: IVP, Drug form: INJ, Q5Min, Dosing Weight 75, kg, PRN Pain Score 4-6, Start date: 08/23/14 14:31:00, Duration: 5 doses or times, Stop date: 08/23/14 17:00:00Notes: (Same as:MORPhine Sulfate) Inactive 08/23/2014 [facility] Meperidine 12.5 mg, 0.5 mL, Route: IVP, Drug form: INJ, Q30Min, Dosing Weight 75, kg, PRN Other -See Comment, For shivering, Start date: 08/23/14 14:31:00, Duration: 2 doses or times, Stop date: 08/23/14 17:00: 00Notes: (Same as: Demerol) "Use Precaution in Elderly, Seizure disorders, and Renal impairment" Inactive 08/23/2014 [facility] Flumazenil 0.2 mg, 2 mL, Route: IVP, Drug form: INJ, PRN, Dosing Weight 75, kg, PRN Benzodiazepine Reversal, Initial dose, Start date: 08/23/14 14:31:00, Duration: 30 day, Stop date: 09/22/14 13:30:00Notes: (Same as: Romazicon) Inactive 08/23/2014 [facility] Naloxone 0.04 mg, 0.1 mL, Route: IVP, Drug form: INJ, Q2MIN, Dosing Weight 75, kg, PRN Narcotic Reversal, Start date: 08/23/14 14:31:00, Duration: 8 doses or times, Stop date: 08/23/14 17:00:00Notes: (Same as: Narcan) Inactive 08/23/2014 [facility] Ondansetron 4 mg, 2 mL, Route: IVP, Drug form: INJ, ONCE, Dosing Weight 75, kg, Start date: 08/23/14 14:31:00, Stop date: 08/23/14 14:31:00Notes: (Same as: Zofran) Inactive 08/23/2014 [facility] Saline Flush 0.9% 10 ml, Route: IVP, Drug Form: INJ, Dosing Weight 75, kg, Q12H, Start date: 08/23/14 9:00:00, Duration: 30 day, Stop date: 09/21/14 21:00:00Notes: (Same as: BD Posiflush) No Longer Active 08/23/2014 [facility] Coumadin 15 mg, PO, Daily, 0 Refill(s) Active 08/23/2014 [facility] Atenolol 100 MG Oral Tablet 100 mg=1 tab, PO, Daily, # 30 tab, 0 Refill(s) Active 08/23/2014 [facility] Saline Flush 0.9% 10 ml, Route: IVP, Drug Form: INJ, Dosing Weight 75, kg, PRN, PRN Line Flush, Start date: 08/23/14 8:03:00, Duration: 30 day, Stop date: 09/22/14 7:02:00Notes: (Same as: BD Posiflush) No Longer Active 08/23/2014 [facility] warfarin 5 mg oral tablet 15 mg, 3 tab, PO, Daily, 30 tab, Substitution Allowed PO Active Vaduganathan 03/15/2013 [facility] warfarin 15 mg, 3 tab, Route: PO, Drug form: TAB, ONCE, Dosing Weight 68.8, kg, Priority: NOW, Start date: 03/15/13 18:01:00, Stop date: 03/15/13 18:01:00 PO No Longer Active Vaduganathan 03/15/2013 [facility] Coumadin 15 mg, 3 tab, Route: PO, Drug form: TAB, Q5PM, Start date: 03/14/13 17:00:00, Duration: 1 doses or times, Stop date: 03/14/13 17:00:00 PO No Longer Active Carrillo 03/14/2013 [facility] Coumadin 15 mg, 3 tab, Route: PO, Drug form: TAB, Q5PM, Start date: 03/13/13 17:00:00, Duration: 1 day, Stop date: 03/13/13 17:00:00 PO No Longer Active Carrillo 03/13/2013 [facility] warfarin 3 mg, 3 tab, Route: PO, Drug form: TAB, ONCE, Dosing Weight 81.818, kg, Priority: NOW, Start date: 03/12/13 18:06:00, Stop date: 03/12/13 18:06:00 PO No Longer Active Vaduganathan 03/12/2013 [facility] warfarin 12 mg, Route: PO, QNoon, Dosing Weight 79.545, kg, Start date: 03/12/13 12:00:00, Duration: 30 day, Stop date: 04/10/13 12:00:00 PO No Longer Active Vaduganathan 03/12/2013 [facility] atenolol 25 mg oral tablet 25 mg, 1 tab, Route: PO, Drug form: TAB, QNoon, Dosing Weight 79.545, kg, Start date: 03/12/13 12:00:00, Duration: 30 day, Stop date: 04/10/13 12:00:00 PO No Longer Active Vaduganathan 03/12/2013 [facility] heparin 2,100 unit, 2.1 mL, Route: IV, Drug form: INJ, PRN, PRN Abnormal Lab Result, Start date: 03/12/13 8:17:00, Duration: 30 day, Stop date: 04/11/13 8:16:00 IV No Longer Active Vaduganathan 03/12/2013 [facility] heparin 4,100 unit, 4.1 mL, Route: IV, Drug form: INJ, PRN, PRN Abnormal Lab Result, Start date: 03/12/13 8:16:00, Duration: 30 day, Stop date: 04/11/13 8:15:00 IV [facility]2013 [facility] Saline Flush 0.9% 5 ml, Route: IVP, Drug Form: INJ, Dosing Weight 79.545, kg, Q12H, Start date: 03/11/13 21:00:00, Duration: 30 day, Stop date: 04/10/13 9:00:00 IVP No Longer Active [facility] 03/12/2013 [facility] enoxaparin 79.545 mg, Route: SUB-Q, Q12H, Dosing Weight 79.545, kg, Start date: 03/11/13 21:00:00, Duration: 30 day, Stop date: 04/10/13 9:00:00 SUB-Q No Longer Active [facility] 03/12/2013 [facility] Saline Flush 0.9% 5 ml, Route: IVP, Drug Form: INJ, Dosing Weight 79.545, kg, PRN, PRN Line Flush, Start date: 03/11/13 20:29:00, Duration: 30 day, Stop date: 04/10/13 20:28:00 IVP No Longer Active [facility] 03/12/2013 [facility] nitroglycerin SL Tab 0.4 mg, Route: SL, Drug form: TAB, Q5Min, Dosing Weight 79.545, kg, PRN Chest Pain, Start date: 03/11/13 20:29:00, Duration: 3 doses or times, Stop date: Limited # of times SL No [facility]2013 [facility] nitroglycerin 0.4 mg sublingual tablet 0.4 mg, 1 tab, Route: SL, Drug form: TAB, Q5Min, PRN Chest Pain, Start date: 03/11/13 19:52:00, Duration: 30 day, Stop date: 04/10/13 19:51:00 SL No Longer Active [facility]/12/2013 [facility] atropine 0.5 mg, 5 mL, Route: IVP, Drug form: INJ, PRN, PRN Bradycardia, Start date: 03/11/13 19:52:00, Duration: 30 day, Stop date: 04/10/13 19:51:00 IVP No Longer Active Vaduganathan 03/12/2013 [facility] warfarin 12 mg, 6 tab, Route: PO, Drug form: TAB, QNoon, Dosing Weight 79.545, kg, Priority: NOW, Start date: 03/11/13 17:38:00, Duration: 30 day, Stop date: 04/10/13 12:00:00 PO No Longer Active Carrillo 03/11/2013 [facility] Heparin - infusion (ACS Protocol) heparin 25,000 units in D5W 500 mL Premix 25,000 unit 25,000 unit, 500 mL, Rate: Start at 12 units/kg/hr (Max Initial dose 1,000 un, Dosing Weight 68.8, kg, Route: IV, Total Volume: 500 ml, Start date: 03/11/13 17:35:00, Duration: 30 day, Stop date: 04/10/13 17:34:00, Replace Every: 24 hr IV No Longer Active Vaduganathan 03/11/2013 [facility] Heparin - one time bolus for ACS 4,000 unit, 4 mL, Route: IV, Drug form: INJ, ONCE, Dosing Weight 79.545, kg, Priority: STAT, Start date: 03/11/13 17:35:00, Stop date: 03/11/13 17:35:00 IV No Longer Active Vaduganathan 03/11/2013 [facility] atenolol 25 mg oral tablet 25 mg, 1 tab, PO, QNoon, Substitution Allowed PO Active Vaduganathan 03/11/2013 [facility] warfarin 12 mg, PO, QNoon, Substitution Allowed PO No Longer Active Vaduganathan 03/11/2013 [facility] Lovenox 80 mg, 0.8 mL, Route: SUB-Q, Drug form: INJ, ONCE, Dosing Weight 79.545, kg, Priority: STAT, Start date: 03/11/13 15:58:00, Stop date: 03/11/13 15:58:00 SUB-Q No Longer Active Vaduganathan 03/11/2013 [facility] metoprolol 5 mg/5 ml INJ 5 mg, 5 mL, Route: IVP, Drug form: INJ, ONCE, Dosing Weight 79.545, kg, Priority: STAT, Start date: 03/11/13 15:12:00, Stop date: 03/11/13 15:12:00 IVP No Longer Active [place] 03/11/2013 [facility] Lovenox 80 mg, 0.8 mL, Route: SUB-Q, Drug form: INJ, [id number], Dosing Weight 78.636, kg, Start date: 10/01/12 15:00:00, Duration: 30 day, Stop date: 10/31/12 3:00:00 SUB-Q No Longer Active [facility] 10/01/2012 [facility] Lovenox 80 mg/0.8 mL subcutaneous solution 80 mg, SUB-Q, Q12H, 14 syr, Substitution Allowed, INJ SUB-Q Active [facility] 10/01/2012 [facility] influenza virus vaccine, inactivated 0.5 ml, Route: IM, Drug Form: INJ, Start date: 10/01/12 9:00:00, Stop date: 10/01/12 9:00:00 IM No Longer Active [facility] 10/01/2012 [facility] atenolol 50 mg oral tablet 50 mg, 1 tab, Route: PO, Drug form: TAB, Daily, Dosing Weight 78.636, kg, Start date: 10/01/12 9:00:00, Duration: 30 day, Stop date: 10/30/12 9:00:00 PO No Longer Active [facility] [place] 10/01/2012 [facility] Lovenox 78.636 mg, Route: SUB-Q, Drug form: INJ, [id number], Dosing Weight 78.636, kg, Start date: 10/01/12 8:00:00, Duration: 30 day, Stop date: 10/30/12 20:00:00, Pediatric DosingPediatric Dosing SUB-Q No Longer Active [facility] 10/01/2012 [facility] amoxicillin 500 mg, 1 cap, Route: PO, Drug form: CAP, [id number], Dosing Weight 78.636, kg, Start date: 10/01/12 0:00:00, Duration: 30 day, Stop date: 10/30/12 16:00:00 PO No Longer Active [facility] [place] 10/01/2012 [facility] [place] 5/325 oral tablet 1 tab, Route: PO, Drug Form: TAB, Dosing Weight 78.636, kg, Q4H, PRN Pain, Start date: 09/30/12 22:59:00, Duration: 30 day, Stop date: 10/30/12 22:58:00 PO No Longer Active [facility] [place] 10/01/2012 [facility] ibuprofen 800 mg, 2 tab, Route: PO, Drug form: TAB, Q8H, Dosing Weight 78.636, kg, PRN For Pain, Start date: 09/30/12 22:57:00, Duration: 30 day, Stop date: 10/30/12 22:56:00 PO No Longer Active [facility] [place] 10/01/2012 [facility] Dextrose 5% with 0.45% NaCl IV 1,000 mL 1,000 mL, Rate: 40 ml/hr, Infuse over: 25 hr, Route: IV, kg, Total Volume: 1,000, Start date: 09/30/12 22:16:00, Duration: 30 day, Stop date: 10/30/12 22:15:00 IV No Longer Active Su 10/01/2012 [facility] Saline Flush 0.9% 5 ml, Route: IVP, Drug Form: INJ, Dosing Weight 77.273, kg, PRN, PRN Line Flush, Start date: 09/30/12 22:16:00, Duration: 30 day, Stop date: 10/30/12 22:15:00 IVP No Longer Active [facility] [place] 10/01/2012 [facility] amoxicillin 500 mg oral tablet 500 mg, 1 tab, PO, Q8H, Substitution Allowed PO Active 10/01/2012 [facility] ibuprofen 800 mg oral tablet 800 mg, 1 tab, PO, Q8H, PRN, as needed for pain, Substitution Allowed PO Active 10/01/2012 [facility] atenolol 50 mg oral tablet 50 mg, 1 tab, PO, Daily, Substitution Allowed PO Active 10/01/2012 [facility] Vicodin 5/500 oral tablet 1 tab, PO, Q4-6H, PRN, 30 tab, Pain, Substitution Allowed, Maintenance PO Active Vaduganathan 08/28/2012 [facility] warfarin 2 mg oral tablet 2 mg, 1 tab, PO, Daily, 30 tab, Substitution Allowed, TAB PO Active Vaduganathan 08/28/2012 [facility] clindamycin 300 mg oral capsule 300 mg, 1 cap, PO, TID, 15 cap, Substitution Allowed [facility] warfarin 15 mg, 3 tab, Route: PO, Drug form: TAB, ONCE, Dosing Weight 79.176, kg, Priority: NOW, Start date: 08/28/12 17:35:00, Stop date: 08/28/12 17:35:00 PO No Longer Active Jenny 08/28/2012 [facility] Lopressor 25 mg, 1 tab, Route: PO, Drug form: TAB, BID, Start date: 08/27/12 17:00:00, Duration: 30 day, Stop date: 09/26/12 9:00:00 PO No Longer Active Magaña 08/27/2012 [facility] morphine Sulfate 1 mg, 0.5 mL, Route: IV, Drug form: INJ, Q4H, Dosing Weight 79.176, kg, PRN as needed for pain, Priority: NOW, Start date: 08/27/12 16:39:00, Duration: 30 day, Stop date: 09/26/12 16:38:00 IV No Longer [facility] pantoprazole 40 mg, 1 tab, Route: PO, Drug form: ECTAB, Before Dinner, Dosing Weight 72.727, kg, Priority: Routine, Start date: 08/27/12 16:30:00, Duration: 30 day, Stop date: 09/25/12 16:30:00 PO No Longer Active Ghassan 08/27/2012 [facility] vancomycin 1 gm, 250 mL, Route: IVPB, Drug form: INJ, [id number], Start date: 08/27/12 16:00:00, Duration: 2 doses or times, Stop date: 08/28/12 4:00:00 IVPB No Longer Active [facility] 08/27/2012 [facility] acetaminophen-hydrocodone 325 mg-5 mg oral tablet 2 tab, Route: PO, Drug Form: TAB, Q6H, PRN Pain Score 6-10, Start date: 08/27/12 15:50:00, Duration: 30 day, Stop date: 09/26/12 15:49:00 PO No Longer Active Magaña 08/27/2012 [facility] tramadol 50 mg oral tablet 100 mg, 2 tab, Route: PO, Drug form: TAB, Q6H, PRN Pain Score 4-6, Start date: 08/27/12 15:27:00, Duration: 30 day, Stop date: 09/26/12 15:26:00 PO No Longer Active [facility] 08/27/2012 [facility] tramadol 50 mg oral tablet 50 mg, 1 tab, Route: PO, Drug form: TAB, Q6H, Dosing Weight 79.176, kg, PRN Pain Score 1-5, Priority: NOW, Start date: 08/27/12 15:24:00, Duration: 30 day, Stop date: 09/26/12 14:23:00 PO No Longer Active Magaña 08/27/2012 [facility] vancomycin 1 gm, 250 mL, Route: IVPB, Drug form: INJ, ONCALL, PRN Other -See Comment, Start date: 08/27/12 9:28:00, Duration: 1 doses or times, Stop date: Limited # of times IVPB No Longer Active [facility] 08/27/2012 [facility] docusate 100 mg, 1 cap, Route: PO, Drug form: CAP, BID, Dosing Weight 72.727, kg, Start date: 08/27/12 9:00:00, Duration: 30 day, Stop date: 09/25/12 17:00:00 PO No Longer Active Ghassan 08/27/2012 [facility] nitroglycerin 0.4 mg sublingual tablet 0.4 mg, 1 tab, Route: SL, Drug form: TAB, Q5Min, PRN Chest Pain, Start date: 08/26/12 20:07:00, Duration: 30 day, Stop date: 09/25/12 19:06:00 SL No Longer Active [facility] 08/27/2012 [facility] atropine 0.5 mg, 5 mL, Route: IVP, Drug form: INJ, PRN, PRN Bradycardia, Start date: 08/26/12 20:07:00, Duration: 30 day, Stop date: 09/25/12 19:06:00 IVP No Longer Active [facility] 08/27/2012 [facility] Lovenox 70 mg, 0.7 mL, Route: SUB-Q, Drug form: INJ, [id number], Dosing Weight 72.727, kg, Start date: 08/26/12 20:00:00, Duration: 30 day, Stop date: 09/25/12 8:00:00 SUB-Q No Longer Active [facility] 08/27/2012 [facility] Saline Flush 0.9% 5 ml, Route: IVP, Drug Form: INJ, Dosing Weight 72.727, kg, PRN, PRN Line Flush, Start date: 08/26/12 19:57:00, Duration: 30 day, Stop date: 09/25/12 18:56:00 IVP No Longer Active [facility] 08/27/2012 [facility] ondansetron 4 mg, 2 mL, Route: IVP, Drug form: INJ, Q6H, Dosing Weight 72.727, kg, PRN Nausea & Vomiting, Start date: 08/26/12 19:57:00, Duration: 30 day, Stop date: 09/25/12 19:56:00 IVP No Longer Active [facility] 08/27/2012 [facility] temazepam 15 mg, 1 cap, Route: PO, Drug form: CAP, Bedtime, Dosing Weight 72.727, kg, PRN Insomnia, Start date: 08/26/12 19:57:00, Duration: 30 day, Stop date: 09/25/12 19:56:00 PO No Longer Active [facility] 08/27/2012 [facility] Lovenox 70 mg, 0.7 mL, Route: SUB-Q, Drug form: INJ, ONCE, Dosing Weight 72.727, kg, Priority: STAT, Start date: 08/26/12 18:11:00, Stop date: 08/26/12 18:11:00 SUB-Q No Longer Active [facility] 08/26/2012 [facility] metoprolol 25 mg oral tablet 25 mg, 1 tab, PO, Daily, Substitution Allowed PO Active 08/26/2012 [facility] warfarin 10 mg oral tablet 10 mg, 1 tab, PO, QNoon, Substitution Allowed PO Active 08/26/2012 [facility] acetaminophen-hydrocodone 325 mg-5 mg oral tablet 1 tab, PO, Q4H, PRN, 10 tab, Pain Score 1-3, Substitution Allowed, Soft Stop, TAB PO Active Ferr[facility] 06/05/2012 [facility] metoprolol 25 mg oral tablet 25 mg, 1 tab, PO, Daily, 30 tab, Substitution Allowed, TAB [facility]2012 [facility] metoprolol extended release 25 mg, 1 tab, Route: PO, Drug form: ERTAB, Daily, Start date: 06/05/12 9:00:00, Duration: 30 day, Stop date: 07/04/12 9:00:00 [facility] metoprolol 25 mg oral tablet 25 mg, 1 tab, Substitution Allowed No Longer Active [facility] 06/05/2012 [facility] Coumadin 15 mg, PO, Substitution Allowed, TAB PO Active 06/05/2012 [facility] Saline Flush 0.9% 5 ml, Route: IVP, Drug Form: INJ, Q12H, Start date: 06/04/12 21:00:00, Duration: 30 day, Stop date: 07/04/12 9:00:00 IVP No Longer Active [facility] 06/05/2012 [facility] morphine Sulfate 2 mg, 1 mL, Route: IVP, Drug form: INJ, Q15Min, PRN Chest Pain, Start date: 06/04/12 17:04:00, Duration: 2 doses or times, Stop date: Limited # of times [facility]P No [facility] acetaminophen-hydrocodone 325 mg-5 mg oral tablet 1 tab, Route: PO, Drug Form: TAB, Q4H, PRN Pain Score 1-5, Start date: 06/04/12 17:04:00, Duration: 30 day, Stop date: 07/04/12 17:03:00 PO No Longer Active [facility] 06/04/2012 [facility] Saline Flush 0.9% 5 ml, Route: IVP, Drug Form: INJ, PRN, PRN Line Flush, Start date: 06/04/12 17:04:00, Duration: 30 day, Stop date: 07/04/12 17:03:00 [facility]2012 [facility] Zofran 4 mg, 2 mL, Route: IVP, Drug form: INJ, Q8H, PRN Nausea, Start date: 06/04/12 17:04:00, Duration: 30 day, Stop date: 07/04/12 17:03:00 IVP [facility]2012 [facility] Ambien 10 mg, 2 tab, Route: PO, Drug form: TAB, Bedtime, PRN Insomnia, Start date: 06/04/12 17:04:00, Duration: 30 day, Stop date: 07/04/12 17:03:00 PO No Longer Active [facility] 06/04/2012 [facility] potassium chloride 20 mEq oral tablet, extended release 20 mEq, 1 tab, Route: PO, Drug form: ERTAB, Daily, PRN Abnormal Lab Result, Replacement for potassium less than 3.5, Start date: 06/04/12 17:04:00, Duration: 30 day, Stop date: 07/04/12 17:03:00 PO [facility]2012 [facility] magnesium oxide 400 mg, 1 tab, Route: PO, Drug form: TAB, Daily, PRN Abnormal Lab Result, Start date: 06/04/12 17:04:00, Duration: 30 day, Stop date: 07/04/12 17:03:00 PO No Longer Active [facility] 06/04/2012 [facility] Saline Flush 0.9% 5 ml, Route: IVP, Drug Form: INJ, PRN, PRN Line Flush, Start date: 06/04/12 15:58:00, Duration: 30 day, Stop date: 07/04/12 15:57:00 IVP No Longer [facility]2012 [facility] acetaminophen 650 mg, 2 tab, Route: PO, Drug form: TAB, Q4H, PRN Pain/Fever, Start date: 06/04/12 15:58:00, Duration: 30 day, Stop date: 07/04/12 15:57:00 [facility]2012 [facility] acetaminophen-hydrocodone 325 mg-5 mg oral tablet 1 tab, Route: PO, Drug Form: TAB, Q4H, PRN Pain Score 1-3, Start date: 06/04/12 15:58:00, Duration: 30 day, Stop date: 07/04/12 15:57:00 [facility]2012 [facility] Allergies, Adverse Reactions, Alerts Substance Category Reaction Severity Reaction type Status Date Reported Comments Source Immunizations Immunization Date Given Site Status Last Updated Comments Source influenza virus vaccine, inactivated 07/27/2015 Left deltoid completed Rotariu [facility] pneumococcal 23-valent vaccine 07/27/2015 Right deltoid completed Rotariu [facility] influenza virus vaccine, inactivated 10/01/2012 Left deltoid completed Hardik [facility] influenza virus vaccine, inactivated 10/01/2012 completed Hardik [facility] Results Order Name Results Value Reference Range Date Interpretation Comments Source HEMATOLOGY PTT 78.8 s 22.9 - 35.8 10/12/2017 [facility] HEMATOLOGY MCV 92.2 fL 80.0 - 98.0 10/12/[address] [facility] Hct 37.8 % 36.0 - 48.0 10/12/[address] [facility] MPV 10.0 fL 7.4 - 10.4 10/12/[address] [facility] WBC 6.1 K/CMM 3.7 - 10.4 10/12/[address] [facility] RBC 4.10 M/CMM 4.20 - 5.40 10/12/[address] [facility] MCH 31.0 pg 27.0 - 31.0 10/12/[address] [facility] RDW 14.5 % 11.5 - 14.5 10/12/[address] [facility] Platelet 161 K/CMM 133 - 450 10/12/[address] [facility] MCHC 33.6 g/dL 32.0 - 36.0 10/12/[address] [facility] Hgb 12.7 g/dL 12.0 - 16.0 10/12/[address] [facility] Basophils # 0.1 K/CMM 0.0 - 0.2 10/12/[address] [facility] Basophils 0.9 % 0.0 - 1.0 10/12/2017 [facility] HEMATOLOGY Segs-Bands # 3.3 K/CMM 1.5 - 8.1 10/12/[address] [facility] Eosinophils # 0.2 K/CMM 0.0 - 0.5 10/12/[address] [facility] Lymphocytes # 2.0 K/CMM 1.0 - 5.5 10/12/[address] [facility] Monocytes # 0.5 K/CMM 0.0 - 0.8 10/12/2017 [facility] HEMATOLOGY Monocytes 8.4 % 2.0 - 12.0 10/12/2017 [facility] HEMATOLOGY Eosinophils 3.7 % 0.0 - 4.0 10/12/2017 [facility] HEMATOLOGY Segs 54.1 % 45.0 - 75.0 10/12/2017 [facility] HEMATOLOGY Lymphocytes 32.9 % 20.0 - 40.0 10/12/2017 [facility] HEMATOLOGY PT 23.2 s 12.0 - 14.7 10/12/2017 [facility] HEMATOLOGY INR 2.04 0.85 - 1.17 10/12/2017 [facility] HEMATOLOGY PTT 98.2 s 22.9 - 35.8 10/12/2017 [facility] HEMATOLOGY PTT 85.7 s 22.9 - 35.8 10/12/2017 [facility] HEMATOLOGY Basophils # 0.1 K/CMM 0.0 - 0.2 10/11/2017 [facility] HEMATOLOGY Eosinophils # 0.2 K/CMM 0.0 - 0.5 10/11/2017 [facility] HEMATOLOGY Eosinophils 2.5 % 0.0 - 4.0 10/11/2017 [facility] HEMATOLOGY Basophils 0.8 % 0.0 - 1.0 10/11/2017 [facility] HEMATOLOGY Monocytes 7.8 % 2.0 - 12.0 10/11/2017 [facility] HEMATOLOGY Lymphocytes 20.7 % 20.0 - 40.0 10/11/2017 [facility] HEMATOLOGY Segs 68.2 % 45.0 - 75.0 10/11/2017 [facility] HEMATOLOGY Monocytes # 0.6 K/CMM 0.0 - 0.8 10/11/2017 [facility] HEMATOLOGY Lymphocytes # 1.5 K/CMM 1.0 - 5.5 10/11/2017 [facility] HEMATOLOGY Segs-Bands # 5.1 K/CMM 1.5 - 8.1 10/11/2017 [facility] HEMATOLOGY Platelet 188 K/CMM 133 - 450 10/11/2017 [facility] HEMATOLOGY MPV 9.9 fL 7.4 - 10.4 10/11/2017 [facility] HEMATOLOGY Hct 39.4 % 36.0 - 48.0 10/11/2017 [facility] HEMATOLOGY Hgb 13.1 g/dL 12.0 - 16.0 10/11/2017 [facility] HEMATOLOGY MCH 30.3 pg 27.0 - 31.0 10/11/2017 [facility] HEMATOLOGY MCV 91.0 fL 80.0 - 98.0 10/11/2017 [facility] HEMATOLOGY RDW 14.2 % 11.5 - 14.5 10/11/2017 [facility] HEMATOLOGY MCHC 33.3 g/dL 32.0 - 36.0 10/11/2017 [facility] HEMATOLOGY WBC 7.5 K/CMM 3.7 - 10.4 10/11/2017 [facility] HEMATOLOGY RBC 4.33 M/CMM 4.20 - 5.40 10/11/2017 [facility] HEMATOLOGY INR 1.93 0.85 - 1.17 10/11/2017 [facility] HEMATOLOGY PT 22.2 s 12.0 - 14.7 10/11/2017 [facility] HEMATOLOGY INR 1.91 0.85 - 1.17 10/11/2017 [facility] HEMATOLOGY PT 22.1 s 12.0 - 14.7 10/11/2017 [facility] CHEM PANEL eGFR 117 mL/min/1.73m2 10/11/2017 Result Comment: The eGFR is calculated using the [...] from the National Kidney Disease Education Program (NKDEP) which additionally recommends that when the eGFR is used in patients with extremes of body mass index for purposes of drug dosing, the eGFR should be multiplied by the estimated BMI. [facility] CHEM PANEL Chloride Lvl 107 meq/L 95 - 109 10/11/2017 [facility] CHEM PANEL Calcium Lvl 8.1 mg/dL 8.5 - 10.5 10/11/2017 [facility] CHEM PANEL CO2 24 meq/L 24 - 32 10/11/2017 [facility] CHEM PANEL Glucose Lvl 84 mg/dL 70 - 99 10/11/2017 [facility] CHEM PANEL Creatinine Lvl 0.65 mg/dL 0.50 - 1.40 10/11/2017 [facility] CHEM PANEL BUN 8 mg/dL 7 - 22 10/11/2017 [facility] CHEM PANEL Sodium Lvl 141 meq/L 135 - 145 10/11/2017 [facility] CHEM PANEL AGAP 14.3 meq/L 10.0 - 20.0 10/11/2017 [facility] CHEM PANEL Potassium Lvl 4.3 meq/L 3.5 - 5.1 10/11/2017 [facility] CHEM PANEL A/G Ratio 1.1 0.7 - 1.6 10/10/2017 [facility] CHEM PANEL Globulin 3.6 g/dL 2.7 - 4.2 10/10/2017 [facility] CHEM PANEL B/C Ratio 11 6 - 25 10/10/2017 [facility] CHEM PANEL AGAP 12.2 meq/L 10.0 - 20.0 10/10/2017 [facility] CHEM PANEL eGFR 105 mL/min/1.73m2 10/10/2017 Result Comment: The eGFR is calculated using the [...] from the National Kidney Disease Education Program (NKDEP) which additionally recommends that when the eGFR is used in patients with extremes of body mass index for purposes of drug dosing, the eGFR should be multiplied by the estimated BMI. [facility] CHEM PANEL CO2 26 meq/L 24 - 32 10/10/2017 [facility] CHEM PANEL Potassium Lvl 4.2 meq/L 3.5 - 5.1 10/10/2017 [facility] CHEM PANEL Creatinine Lvl 0.75 mg/dL 0.50 - 1.40 10/10/2017 [facility] CHEM PANEL Chloride Lvl 108 meq/L 95 - 109 10/10/2017 [facility] CHEM PANEL Sodium Lvl 142 meq/L 135 - 145 10/10/2017 [facility] CHEM PANEL AST 26 unit/L 0 - 37 10/10/2017 [facility] CHEM PANEL ALT 23 unit/L 0 - 65 10/10/2017 [facility] CHEM PANEL Albumin Lvl 3.8 g/dL 3.5 - 5.0 10/10/2017 [facility] CHEM PANEL Total Protein 7.4 g/dL 6.4 - 8.4 10/10/2017 [facility] CHEM PANEL Calcium Lvl 8.4 mg/dL 8.5 - 10.5 10/10/2017 [facility] CHEM PANEL Alk Phos 62 unit/L 39 - 136 10/10/2017 [facility] CHEM PANEL Bili Total 0.7 mg/dL 0.2 - 1.3 10/10/2017 [facility] CHEM PANEL BUN 8 mg/dL 7 - 22 10/10/2017 [facility] CHEM PANEL Glucose Lvl 111 mg/dL 70 - 99 10/10/2017 [facility] ENDOCRINOLOGY S Preg Negative *NA* (10/10/17 12:29 PM) Negative 10/10/2017 [facility] HEMATOLOGY Segs-Bands # 5.3 K/CMM 1.5 - 8.1 10/10/2017 [facility] HEMATOLOGY Basophils 1.0 % 0.0 - 1.0 10/10/2017 [facility] HEMATOLOGY Monocytes # 0.7 K/CMM 0.0 - 0.8 10/10/2017 [facility] HEMATOLOGY Lymphocytes # 1.6 K/CMM 1.0 - 5.5 10/10/2017 [facility] HEMATOLOGY Eosinophils # 0.1 K/CMM 0.0 - 0.5 10/10/2017 [facility] HEMATOLOGY Basophils # 0.1 K/CMM 0.0 - 0.2 10/10/2017 [facility] HEMATOLOGY Eosinophils 1.2 % 0.0 - 4.0 10/10/2017 [facility] HEMATOLOGY Segs 68.5 % 45.0 - 75.0 10/10/2017 [facility] HEMATOLOGY Monocytes 9.2 % 2.0 - 12.0 10/10/2017 [facility] HEMATOLOGY Lymphocytes 20.1 % 20.0 - 40.0 10/10/2017 [facility] HEMATOLOGY MPV 9.9 fL 7.4 - 10.4 10/10/2017 [facility] HEMATOLOGY Platelet 207 K/CMM 133 - 450 10/10/2017 [facility] HEMATOLOGY WBC 7.7 K/CMM 3.7 - 10.4 10/10/2017 [facility] HEMATOLOGY Hct 43.1 % 36.0 - 48.0 10/10/2017 [facility] HEMATOLOGY Hgb 14.7 g/dL 12.0 - 16.0 10/10/[address] [facility] RBC 4.71 M/CMM 4.20 - 5.40 10/10/2017 [facility] HEMATOLOGY MCV 91.5 fL 80.0 - 98.0 10/10/2017 [facility] HEMATOLOGY RDW 14.4 % 11.5 - 14.5 10/10/[address] [facility] MCHC 34.1 g/dL 32.0 - 36.0 10/10/[address] [facility] MCH 31.2 pg 27.0 - 31.0 10/10/2017 [facility] ELECTROLYTES Potassium Lvl 3.7 meq/L 3.5 - 5.1 09/02/2017 [facility] ELECTROLYTES Chloride Lvl 108 meq/L 95 - 109 09/02/2017 [facility] ELECTROLYTES CO2 24 meq/L 24 - 32 09/02/2017 [facility] ELECTROLYTES Calcium Lvl 7.6 mg/dL 8.5 - 10.5 09/02/2017 [facility] ELECTROLYTES BUN 8 mg/dL 7 - 22 09/02/2017 [facility] ELECTROLYTES Glucose Lvl 98 mg/dL 70 - 99 09/02/2017 [facility] ELECTROLYTES Sodium Lvl 139 meq/L 135 - 145 09/02/2017 [facility] ELECTROLYTES Creatinine Lvl 0.51 mg/dL 0.50 - 1.40 09/02/2017 [facility] ELECTROLYTES eGFR 127 mL/min/1.73m2 09/02/2017 Result Comment: The eGFR is calculated using the [...] from the National Kidney Disease Education Program (NKDEP) which additionally recommends that when the eGFR is used in patients with extremes of body mass index for purposes of drug dosing, the eGFR should be multiplied by the estimated BMI. [facility] ELECTROLYTES AGAP 10.7 meq/L 10.0 - 20.0 09/02/2017 [facility] HEMATOLOGY POC Activated Clotting Time 188 s 09/01/2017 [facility] Chest 1 v for Placement DX Chest 1 v for Placement DX EXAM: XR CHEST 1 VIEW DATE: 09/01/2017 at 1830 hours INDICATION: Line Placement - Status post PPM/ICD Implantation COMPARISON: 07/27/2015 TECHNIQUE: AP chest FINDINGS: Lines, tubes and hardware: A left subclavian approach dual-lead pacer has been replaced in the interim, with leads overlying the right atrium and right ventricle. Prior median sternotomy for valve replacement unchanged. Lungs and pleura: New airspace opacity is present within the medial aspect of the right upper lobe, with questionable opacity at the medial aspect of the left lower lobe obscuring portions of the descending thoracic aorta. Pulmonary vascularity is normal. No pneumothorax is identified on this semiupright radiograph. Heart and mediastinum: The heart size is prominent, but accentuated by AP technique. The mediastinal contours are normal. Findings discussed with Dr. Magaña via telephone at 1945 hours 09/01/2017 IMPRESSION: 1. Interval replacement of the left subclavian approach pacer, with leads overlying the right atrium and right ventricle 2. New airspace opacities in the medial aspect of the right upper lobe and medial aspect of the left lower lobe may represent atelectasis or pneumonia/aspiration. 09/01/2017 - - Read by: Coty Iyer MD Dictated Date/time: 09/01/17 19:27 Electronically Signed by: Coty Iyer MD 09/01/17 19:46 FINAL REPORT [facility] HEMATOLOGY POC Activated Clotting Time 408 s 09/01/2017 [facility] HEMATOLOGY POC Activated Clotting Time 364 s 09/01/2017 [facility] BLOOD BANK RESULTS ABO/Rh O POS 09/01/2017 [facility] BLOOD BANK RESULTS Antibody Scrn Negative (09/01/17 6:03 AM) 09/01/2017 [facility] CHEM PANEL ALT 37 unit/L 0 - 65 09/01/2017 [facility] CHEM PANEL Alk Phos 55 unit/L 39 - 136 09/01/2017 [facility] CHEM PANEL Total Protein 7.0 g/dL 6.4 - 8.4 09/01/2017 [facility] CHEM PANEL Albumin Lvl 3.6 g/dL 3.5 - 5.0 09/01/2017 [facility] CHEM PANEL Bili Total 0.3 mg/dL 0.2 - 1.3 09/01/2017 [facility] CHEM PANEL AST 30 unit/L 0 - 37 09/01/2017 [facility] CHEM PANEL eGFR 120 mL/min/1.73m2 09/01/2017 Result Comment: The eGFR is calculated using the [...] from the National Kidney Disease Education Program (NKDEP) which additionally recommends that when the eGFR is used in patients with extremes of body mass index for purposes of drug dosing, the eGFR should be multiplied by the estimated BMI. [facility] CHEM PANEL BUN 12 mg/dL 7 - 22 09/01/2017 [facility] CHEM PANEL Glucose Lvl 88 mg/dL 70 - 99 09/01/2017 [facility] CHEM PANEL Calcium Lvl 8.4 mg/dL 8.5 - 10.5 09/01/2017 [facility] CHEM PANEL CO2 27 meq/L 24 - 32 09/01/2017 [facility] CHEM PANEL Chloride Lvl 105 meq/L 95 - 109 09/01/2017 [facility] CHEM PANEL Creatinine Lvl 0.60 mg/dL 0.50 - 1.40 09/01/2017 [facility] CHEM PANEL Potassium Lvl 3.6 meq/L 3.5 - 5.1 09/01/2017 [facility] CHEM PANEL Sodium Lvl 139 meq/L 135 - 145 09/01/2017 [facility] CHEM PANEL A/G Ratio 1.1 0.7 - 1.6 09/01/2017 [facility] CHEM PANEL Globulin 3.4 g/dL 2.7 - 4.2 09/01/2017 [facility] CHEM PANEL B/C Ratio 20 6 - 25 09/01/2017 [facility] CHEM PANEL AGAP 10.6 meq/L 10.0 - 20.0 09/01/2017 [facility] CHEM PANEL Magnesium Lvl 1.5 mg/dL 1.8 - 2.4 09/01/2017 [facility] HEMATOLOGY Basophils # 0.1 K/CMM 0.0 - 0.2 09/01/2017 [facility] HEMATOLOGY Eosinophils # 0.2 K/CMM 0.0 - 0.5 09/01/2017 [facility] HEMATOLOGY Monocytes # 0.5 K/CMM 0.0 - 0.8 09/01/2017 [facility] HEMATOLOGY Eosinophils 3.2 % 0.0 - 4.0 09/01/2017 [facility] HEMATOLOGY Segs-Bands # 3.4 K/CMM 1.5 - 8.1 09/01/2017 [facility] HEMATOLOGY Basophils 1.3 % 0.0 - 1.0 09/01/2017 [facility] HEMATOLOGY Lymphocytes 21.6 % 20.0 - 40.0 09/01/2017 [facility] HEMATOLOGY Segs 63.7 % 45.0 - 75.0 09/01/2017 [facility] HEMATOLOGY Monocytes 10.2 % 2.0 - 12.0 09/01/2017 [facility] HEMATOLOGY Lymphocytes # 1.1 K/CMM 1.0 - 5.5 09/01/2017 [facility] HEMATOLOGY PTT 40.6 s 22.9 - 35.8 09/01/2017 [facility] HEMATOLOGY PT 23.4 s 12.0 - 14.7 09/01/2017 [facility] HEMATOLOGY INR 2.06 0.85 - 1.17 09/01/2017 [facility] HEMATOLOGY Platelet 193 K/CMM 133 - 450 09/01/2017 [facility] HEMATOLOGY MPV 9.6 fL 7.4 - 10.4 09/01/2017 [facility] HEMATOLOGY RBC 4.20 M/CMM 4.20 - 5.40 09/01/2017 [facility] HEMATOLOGY Hgb 12.9 g/dL 12.0 - 16.0 09/01/2017 [facility] HEMATOLOGY Hct 38.4 % 36.0 - 48.0 09/01/2017 [facility] HEMATOLOGY MCV 91.5 fL 80.0 - 98.0 09/01/2017 [facility] HEMATOLOGY MCH 30.6 pg 27.0 - 31.0 09/01/2017 [facility] HEMATOLOGY WBC 5.3 K/CMM 3.7 - 10.4 09/01/2017 [facility] HEMATOLOGY RDW 14.0 % 11.5 - 14.5 09/01/2017 [facility] HEMATOLOGY MCHC 33.5 g/dL 32.0 - 36.0 09/01/2017 [facility] URINE CHEM U Preg Negative (09/01/17 6:03 AM) Negative 09/01/2017 [facility] URINE CHEM U Preg Negative (08/12/17 10:44 AM) Negative 08/12/2017 [facility] BLOOD BANK RESULTS ABO/Rh O POS 08/12/2017 [facility] BLOOD BANK RESULTS Antibody Scrn Negative (08/12/17 10:17 AM) 08/12/2017 [facility] CHEM PANEL Magnesium Lvl 1.7 mg/dL 1.8 - 2.4 08/12/2017 [facility] CHEM PANEL eGFR 121 mL/min/1.73m2 08/12/2017 Result Comment: The eGFR is calculated using the [...] from the National Kidney Disease Education Program (NKDEP) which additionally recommends that when the eGFR is used in patients with extremes of body mass index for purposes of drug dosing, the eGFR should be multiplied by the estimated BMI. [facility] CHEM PANEL CO2 28 meq/L 24 - 32 08/12/2017 [facility] CHEM PANEL Chloride Lvl 106 meq/L 95 - 109 08/12/2017 [facility] CHEM PANEL Calcium Lvl 8.5 mg/dL 8.5 - 10.5 08/12/2017 [facility] CHEM PANEL Glucose Lvl 92 mg/dL 70 - 99 08/12/2017 [facility] CHEM PANEL BUN 6 mg/dL 7 - 22 08/12/2017 [facility] CHEM PANEL Potassium Lvl 3.9 meq/L 3.5 - 5.1 08/12/2017 [facility] CHEM PANEL Creatinine Lvl 0.58 mg/dL 0.50 - 1.40 08/12/2017 [facility] CHEM PANEL Sodium Lvl 139 meq/L 135 - 145 08/12/2017 [facility] CHEM PANEL AGAP 8.9 meq/L 10.0 - 20.0 08/12/2017 [facility] HEMATOLOGY Monocytes # 0.5 K/CMM 0.0 - 0.8 08/12/2017 [facility] HEMATOLOGY Eosinophils # 0.2 K/CMM 0.0 - 0.5 08/12/2017 [facility] HEMATOLOGY Basophils # 0.1 K/CMM 0.0 - 0.2 08/12/2017 [facility] HEMATOLOGY Lymphocytes # 1.1 K/CMM 1.0 - 5.5 08/12/2017 [facility] HEMATOLOGY Lymphocytes 22.9 % 20.0 - 40.0 08/12/2017 [facility] HEMATOLOGY Monocytes 9.8 % 2.0 - 12.0 08/12/2017 [facility] HEMATOLOGY Eosinophils 3.7 % 0.0 - 4.0 08/12/2017 [facility] HEMATOLOGY Segs-Bands # 2.9 K/CMM 1.5 - 8.1 08/12/2017 [facility] HEMATOLOGY Basophils 1.1 % 0.0 - 1.0 08/12/2017 [facility] HEMATOLOGY Segs 62.5 % 45.0 - 75.0 08/12/2017 [facility] HEMATOLOGY INR 1.09 0.85 - 1.17 08/12/2017 [facility] HEMATOLOGY PT 14.3 s 12.0 - 14.7 08/12/2017 [facility] HEMATOLOGY PTT 30.5 s 22.9 - 35.8 08/12/2017 [facility] HEMATOLOGY MPV 9.5 fL 7.4 - 10.4 08/12/2017 [facility] HEMATOLOGY Hgb 14.3 g/dL 12.0 - 16.0 08/12/2017 [facility] HEMATOLOGY MCV 92.4 fL 80.0 - 98.0 08/12/2017 [facility] HEMATOLOGY Hct 43.1 % 36.0 - 48.0 08/12/2017 [facility] HEMATOLOGY RBC 4.67 M/CMM 4.20 - 5.40 08/12/2017 [facility] HEMATOLOGY WBC 4.7 K/CMM 3.7 - 10.4 08/12/2017 [facility] HEMATOLOGY MCHC 33.2 g/dL 32.0 - 36.0 08/12/2017 [facility] HEMATOLOGY MCH 30.6 pg 27.0 - 31.0 08/12/2017 [facility] HEMATOLOGY Platelet 190 K/CMM 133 - 450 08/12/2017 [facility] HEMATOLOGY RDW 14.0 % 11.5 - 14.5 08/12/2017 [facility] CHEM PANEL Phosphorus 2.3 mg/dL 2.5 - 4.5 07/27/2015 [facility] CHEM PANEL Magnesium Lvl 1.8 mg/dL 1.8 - 2.4 07/27/2015 [facility] CHEM PANEL eGFR 122 mL/min/1.73m2 07/27/2015 Result Comment: The eGFR is calculated using the [...] from the National Kidney Disease Education Program (NKDEP) which additionally recommends that when the eGFR is used in patients with extremes of body mass index for purposes of drug dosing, the eGFR should be multiplied by the estimated BMI. [facility] CHEM PANEL Calcium Lvl 7.4 mg/dL 8.5 - 10.5 07/27/2015 [facility] CHEM PANEL CO2 26 meq/L 24 - 32 07/27/2015 [facility] CHEM PANEL Potassium Lvl 3.5 meq/L 3.5 - 5.1 07/27/2015 [facility] CHEM PANEL Sodium Lvl 141 meq/L 135 - 145 07/27/2015 [facility] CHEM PANEL Creatinine Lvl 0.6 mg/dL 0.5 - 1.4 07/27/2015 [facility] CHEM PANEL Chloride Lvl 109 meq/L 95 - 109 07/27/2015 [facility] CHEM PANEL Glucose Lvl 94 mg/dL 70 - 99 07/27/2015 [facility] CHEM PANEL BUN 7 mg/dL 7 - 22 07/27/2015 [facility] CHEM PANEL AGAP 9.5 meq/L 10.0 - 20.0 07/27/2015 [facility] HEMATOLOGY Eosinophils # 0.1 K/CMM 0.0 - 0.5 07/27/2015 [facility] HEMATOLOGY Basophils # 0.1 K/CMM 0.0 - 0.2 07/27/2015 [facility] HEMATOLOGY Segs-Bands # 7.1 K/CMM 1.5 - 8.1 07/27/2015 [facility] HEMATOLOGY Lymphocytes # 1.2 K/CMM 1.0 - 5.5 07/27/2015 [facility] HEMATOLOGY Monocytes # 0.9 K/CMM 0.0 - 0.8 07/27/2015 [facility] HEMATOLOGY Lymphocytes 12.6 % 20.0 - 40.0 07/27/2015 [facility] HEMATOLOGY Monocytes 9.6 % 2.0 - 12.0 07/27/2015 [facility] HEMATOLOGY Eosinophils 1.0 % 0.0 - 4.0 07/27/2015 [facility] HEMATOLOGY Basophils 0.8 % 0.0 - 1.0 07/27/2015 [facility] HEMATOLOGY Segs 76.0 % 45.0 - 75.0 07/27/2015 [facility] HEMATOLOGY PT 29.1 s 12.0 - 14.7 07/27/2015 [facility] HEMATOLOGY INR 2.71 0.85 - 1.17 07/27/2015 [facility] [facility] HEMATOLOGY PTT 45.0 s 22.9 - 35.8 07/27/2015 [facility] HEMATOLOGY Platelet 158 K/CMM 133 - 450 07/27/2015 [facility] HEMATOLOGY RBC 3.99 M/CMM 4.20 - 5.40 07/27/2015 [facility] HEMATOLOGY MPV 9.6 fL 7.4 - 10.4 07/27/2015 [facility] HEMATOLOGY RDW 13.1 % 11.5 - 14.5 07/27/2015 [facility] HEMATOLOGY Hgb 12.3 g/dL 12.0 - 16.0 07/27/2015 Result Comment: rechecked [facility] HEMATOLOGY MCHC 32.6 g/dL 32.0 - 36.0 07/27/2015 [facility] HEMATOLOGY MCV 94.8 fL 80.0 - 98.0 07/27/2015 [facility] HEMATOLOGY Hct 37.8 % 36.0 - 48.0 07/27/2015 [facility] HEMATOLOGY MCH 30.9 pg 27.0 - 31.0 07/27/2015 [facility] HEMATOLOGY WBC 9.3 K/CMM 3.7 - 10.4 07/27/2015 [facility] Chest 2 views DX Chest 2 views DX CHEST 2 VIEWS dated 2015-07-27 08:53:00 COMPARISON: 07/26/2015 CLINICAL INDICATION: Arrhythmias FINDINGS: Frontal and lateral chest radiographs are submitted for interpretation. Stable postoperative cardiac silhouette with prosthetic cardiac valve in place. Left pacemaker device. Bilateral lower lobe subsegmental atelectasis. No definite pleural effusion or pneumothorax. CONCLUSION: There has been no significant interval change in the radiographic appearance of the chest when compared to prior radiograph. 07/27/2015 - - Read by: Arthur Rai Dictated Date/time: 07/27/15 11:00 Electronically Signed by: Arthur Rai 07/27/15 11:02 FINAL REPORT [facility] Chest 1view DX Chest 1view DX EXAM: CHEST 1 VIEW DATE: Jul 26, 2015 09:56:00 PM INDICATION: Arrhythmias COMPARISON: August 09, 2014 at 1427 hours TECHNIQUE: A single portable view of the chest FINDINGS: Right subclavian dual lead AICD remains in place. Postoperative appearance of median sternotomy and aortic valve replacement are unchanged. Cardiac silhouette is at upper limits of normal in size but not significantly different when taking into account differences of technique and position. Mediastinal contours are normal. Pulmonary vascularity is normal. The lungs are clear without focal consolidation. No effusions are identified. IMPRESSION: 1. There is no acute cardiopulmonary disease nor significant interval change in the appearance of the chest radiograph since August 09, 2014. 07/26/2015 - - Read by: Zohreh Morley MD Dictated Date/time: 07/27/15 01:10 Electronically Signed by: Zohreh Morley MD 07/27/15 01:24 FINAL REPORT [facility] BLOOD BANK RESULTS ABO/Rh CR 07/26/2015 [facility] BLOOD BANK RESULTS Antibody Scrn CR (07/26/15 10:44 AM) 07/26/2015 [facility] CHEM PANEL Bili Total 0.6 mg/dL 0.2 - 1.3 07/26/2015 [facility] CHEM PANEL Total Protein 8.2 g/dL 6.4 - 8.4 07/26/2015 [facility] CHEM PANEL ALT 20 unit/L 0 - 65 07/26/2015 [facility] CHEM PANEL Albumin Lvl 4.1 g/dL 3.5 - 5.0 07/26/2015 [facility] CHEM PANEL Alk Phos 68 unit/L 39 - 136 07/26/2015 [facility] CHEM PANEL AST 32 unit/L 0 - 37 07/26/2015 [facility] CHEM PANEL eGFR 116 mL/min/1.73m2 07/26/2015 Result Comment: The eGFR is calculated using the [...] from the National Kidney Disease Education Program (NKDEP) which additionally recommends that when the eGFR is used in patients with extremes of body mass index for purposes of drug dosing, the eGFR should be multiplied by the estimated BMI. [facility] CHEM PANEL Potassium Lvl 4.3 meq/L 3.5 - 5.1 07/26/2015 [facility] CHEM PANEL Sodium Lvl 138 meq/L 135 - 145 07/26/2015 [facility] CHEM PANEL Chloride Lvl 103 meq/L 95 - 109 07/26/2015 [facility] CHEM PANEL CO2 24 meq/L 24 - 32 07/26/2015 [facility] CHEM PANEL Calcium Lvl 8.6 mg/dL 8.5 - 10.5 07/26/2015 [facility] CHEM PANEL BUN 11 mg/dL 7 - 22 07/26/2015 [facility] CHEM PANEL Creatinine Lvl 0.7 mg/dL 0.5 - 1.4 07/26/2015 [facility] CHEM PANEL Glucose Lvl 85 mg/dL 70 - 99 07/26/2015 [facility] CHEM PANEL A/G Ratio 1.0 0.7 - 1.6 07/26/2015 [facility] CHEM PANEL Globulin 4.1 g/dL 2.0 - 4.0 07/26/2015 [facility] CHEM PANEL B/C Ratio 16 6 - 25 07/26/2015 [facility] CHEM PANEL AGAP 15.3 meq/L 10.0 - 20.0 07/26/2015 [facility] HEMATOLOGY Hgb 15.4 g/dL 12.0 - 16.0 07/26/2015 [facility] HEMATOLOGY RBC 4.97 M/CMM 4.20 - 5.40 07/26/2015 [facility] HEMATOLOGY Hct 46.8 % 36.0 - 48.0 07/26/2015 [facility] HEMATOLOGY WBC 7.2 K/CMM 3.7 - 10.4 07/26/2015 [facility] HEMATOLOGY MPV 9.8 fL 7.4 - 10.4 07/26/2015 [facility] HEMATOLOGY RDW 13.2 % 11.5 - 14.5 07/26/2015 [facility] HEMATOLOGY Platelet 215 K/CMM 133 - 450 07/26/2015 [facility] HEMATOLOGY MCV 94.1 fL 80.0 - 98.0 07/26/2015 [facility] HEMATOLOGY MCHC 33.0 g/dL 32.0 - 36.0 07/26/2015 [facility] HEMATOLOGY MCH 31.0 pg 27.0 - 31.0 07/26/2015 [facility] HEMATOLOGY Lymphocytes 21.1 % 20.0 - 40.0 07/26/2015 [facility] HEMATOLOGY Monocytes 8.2 % 2.0 - 12.0 07/26/2015 [facility] HEMATOLOGY Segs 67.6 % 45.0 - 75.0 07/26/2015 [facility] HEMATOLOGY Segs-Bands # 4.9 K/CMM 1.5 - 8.1 07/26/2015 [facility] HEMATOLOGY Lymphocytes # 1.5 K/CMM 1.0 - 5.5 07/26/2015 [facility] HEMATOLOGY Monocytes # 0.6 K/CMM 0.0 - 0.8 07/26/2015 [facility] HEMATOLOGY Basophils # 0.1 K/CMM 0.0 - 0.2 07/26/2015 [facility] HEMATOLOGY Eosinophils # 0.2 K/CMM 0.0 - 0.5 07/26/2015 [facility] HEMATOLOGY Eosinophils 2.2 % 0.0 - 4.0 07/26/2015 [facility] HEMATOLOGY Basophils 0.9 % 0.0 - 1.0 07/26/2015 [facility] HEMATOLOGY PTT 43.6 s 22.9 - 35.8 07/26/2015 [facility] HEMATOLOGY INR 2.34 0.85 - 1.17 07/26/2015 [facility] HEMATOLOGY PT 26.0 s 12.0 - 14.7 07/26/2015 [facility] CARDIAC ENZYMES Troponin-I null 0.00 - 0.40 06/10/2015 [facility] CARDIAC ENZYMES CK MB 1.8 ng/mL 0.5 - 3.6 06/10/2015 [facility] CARDIAC ENZYMES Total CK 149 unit/L 12 - 191 06/10/2015 [facility] CARDIAC ENZYMES CK MB Index 1.2 0.0 - 2.5 06/10/2015 [facility] ELECTROLYTES Chloride Lvl 105 meq/L 95 - 109 06/10/2015 [facility] ELECTROLYTES Sodium Lvl 137 meq/L 135 - 145 06/10/2015 [facility] ELECTROLYTES Potassium Lvl 3.8 meq/L 3.5 - 5.1 06/10/2015 [facility] ELECTROLYTES eGFR 116 mL/min/1.73m2 06/10/2015 Result Comment: The eGFR is calculated using the [...] from the National Kidney Disease Education Program (NKDEP) which additionally recommends that when the eGFR is used in patients with extremes of body mass index for purposes of drug dosing, the eGFR should be multiplied by the estimated BMI. [facility] ELECTROLYTES Alk Phos 74 unit/L 39 - 136 06/10/2015 [facility] ELECTROLYTES Bili Total 0.7 mg/dL 0.2 - 1.3 06/10/2015 [facility] ELECTROLYTES A/G Ratio 1.0 0.7 - 1.6 06/10/2015 [facility] ELECTROLYTES AGAP 11.8 meq/L 10.0 - 20.0 06/10/2015 [facility] ELECTROLYTES B/C Ratio 14 6 - 25 06/10/2015 [facility] ELECTROLYTES Globulin 4.1 g/dL 2.0 - 4.0 06/10/2015 [facility] ELECTROLYTES Glucose Lvl 108 mg/dL 70 - 99 06/10/2015 [facility] ELECTROLYTES BUN 10 mg/dL 7 - 22 06/10/2015 [facility] ELECTROLYTES Creatinine Lvl 0.7 mg/dL 0.5 - 1.4 06/10/2015 [facility] ELECTROLYTES Total Protein 8.1 g/dL 6.4 - 8.4 06/10/2015 [facility] ELECTROLYTES CO2 24 meq/L 24 - 32 06/10/2015 [facility] ELECTROLYTES Calcium Lvl 8.4 mg/dL 8.5 - 10.5 06/10/2015 [facility] ELECTROLYTES ALT 27 unit/L 0 - 65 06/10/2015 [facility] ELECTROLYTES Albumin Lvl 4.0 g/dL 3.5 - 5.0 06/10/2015 [facility] ELECTROLYTES AST 29 unit/L 0 - 37 06/10/2015 [facility] HEMATOLOGY Segs-Bands # 6.9 K/CMM 1.5 - 8.1 06/10/2015 [facility] HEMATOLOGY Lymphocytes # 1.4 K/CMM 1.0 - 5.5 06/10/2015 [facility] HEMATOLOGY Basophils 0.9 % 0.0 - 1.0 06/10/2015 [facility] HEMATOLOGY Monocytes # 0.9 K/CMM 0.0 - 0.8 06/10/2015 [facility] HEMATOLOGY Segs 73.2 % 45.0 - 75.0 06/10/2015 [facility] HEMATOLOGY Lymphocytes 15.1 % 20.0 - 40.0 06/10/2015 [facility] HEMATOLOGY Monocytes 9.4 % 2.0 - 12.0 06/10/2015 [facility] HEMATOLOGY Eosinophils 1.4 % 0.0 - 4.0 06/10/2015 [facility] HEMATOLOGY Eosinophils # 0.1 K/CMM 0.0 - 0.5 06/10/2015 [facility] HEMATOLOGY Basophils # 0.1 K/CMM 0.0 - 0.2 06/10/2015 [facility] HEMATOLOGY WBC 9.5 K/CMM 3.7 - 10.4 06/10/2015 [facility] HEMATOLOGY Hct 44.0 % 36.0 - 48.0 06/10/[address] [facility] Hgb 14.9 g/dL 12.0 - 16.0 06/10/[address] [facility] MCHC 33.9 g/dL 32.0 - 36.0 06/10/[address] [facility] MCH 32.0 pg 27.0 - 31.0 06/10/[address] [facility] MCV 94.2 fL 80.0 - 98.0 06/10/[address] [facility] RDW 14.5 % 11.5 - 14.5 06/10/[address] [facility] RBC 4.67 M/CMM 4.20 - 5.40 06/10/[address] [facility] MPV 9.6 fL 7.4 - 10.4 06/10/[address] [facility] Platelet 198 K/CMM 133 - 450 06/10/[address] [facility] PTT 76.1 s 22.9 - 35.8 06/10/[address] [facility] INR 2.94 0.85 - 1.17 06/10/[address] [facility] PT 31.7 s 12.0 - 14.7 06/10/[address] [facility] POC Activated Clotting Time 164 s 08/23/2014 [facility] HEMATOLOGY POC Activated Clotting Time 359 s 08/23/2014 [facility] CHEM PANEL Magnesium Lvl 1.6 mg/dL 1.8 - 2.4 08/23/2014 [facility] ELECTROLYTES AGAP 11.9 meq/L 10.0 - 20.0 08/23/2014 [facility] ELECTROLYTES eGFR 99 mL/min/1.73m2 08/23/2014 1Result Comment: The eGFR is calculated using [...] from the National Kidney Disease Education Program (NKDEP) which additionally recommends that when the eGFR is used in patients with extremes of body mass index for purposes of drug dosing, the eGFR should be multiplied by the estimated BMI. [facility] ELECTROLYTES CO2 28 meq/L 24 - 32 08/23/2014 [facility] ELECTROLYTES Calcium Lvl 8.3 mg/dL 8.5 - 10.5 08/23/2014 [facility] ELECTROLYTES Chloride Lvl 106 meq/L 95 - 109 08/23/2014 [facility] ELECTROLYTES BUN 10 mg/dL 7 - 22 08/23/2014 [facility] ELECTROLYTES Creatinine Lvl 0.8 mg/dL 0.5 - 1.4 08/23/2014 [facility] ELECTROLYTES Potassium Lvl 3.9 meq/L 3.5 - 5.1 08/23/2014 [facility] ELECTROLYTES Sodium Lvl 142 meq/L 135 - 145 08/23/2014 [facility] ELECTROLYTES Glucose Lvl 84 mg/dL 70 - 99 08/23/2014 2Interpretive Data: Adult reference range values reflect the clinical guidelines of the [place] [employer]. [facility] HEMATOLOGY INR 2.01 0.85 - 1.17 08/23/2014 3Interpretive Data: RECOMMENDED RANGES FOR PROTIME INR: 2.0-3.0 for most medical and surgical thromboembolic states. 2.5-3.5 for artificial heart valves and recurrent embolism. INR SHOULD BE USED ONLY FOR PATIENTS ON STABLE ANTICOAGULANT THERAPY. [facility] HEMATOLOGY PT 23.3 s 12.0 - 14.7 08/23/2014 [facility] HEMATOLOGY PTT 41.4 s 22.9 - 35.8 08/23/2014 4Interpretive Data: Heparin Therapeutic Range: 57 - 92 Seconds [facility] HEMATOLOGY Eosinophils 2.9 % 0.0 - 4.0 08/23/2014 [facility] HEMATOLOGY Lymphocytes 18.7 % 20.0 - 40.0 08/23/2014 [facility] HEMATOLOGY Monocytes 9.7 % 2.0 - 12.0 08/23/2014 [facility] HEMATOLOGY Basophils 0.9 % 0.0 - 1.0 08/23/2014 [facility] HEMATOLOGY Eosinophils # 0.2 K/CMM 0.0 - 0.5 08/23/2014 [facility] HEMATOLOGY Segs 67.8 % 45.0 - 75.0 08/23/2014 [facility] HEMATOLOGY Lymphocytes # 1.0 K/CMM 1.0 - 5.5 08/23/2014 [facility] HEMATOLOGY Segs-Bands # 3.7 K/CMM 1.5 - 8.1 08/23/2014 [facility] HEMATOLOGY Monocytes # 0.5 K/CMM 0.0 - 0.8 08/23/2014 [facility] HEMATOLOGY Basophils # 0.2 K/CMM 0.0 - 0.2 08/23/2014 [facility] HEMATOLOGY MCH 31.5 pg 27.0 - 31.0 08/23/2014 [facility] HEMATOLOGY MPV 10.0 fL 7.4 - 10.4 08/23/2014 [facility] HEMATOLOGY MCHC 33.6 g/dL 32.0 - 36.0 08/23/2014 [facility] HEMATOLOGY MCV 93.6 fL 80.0 - 98.0 08/23/2014 [facility] HEMATOLOGY RDW 13.8 % 11.5 - 14.5 08/23/2014 [facility] HEMATOLOGY Platelet 156 K/CMM 133 - 450 08/23/2014 [facility] HEMATOLOGY Hct 40.7 % 36.0 - 48.0 08/23/2014 [facility] HEMATOLOGY Hgb 13.7 g/dL 12.0 - 16.0 08/23/2014 [facility] HEMATOLOGY RBC 4.35 M/CMM 4.20 - 5.40 08/23/2014 [facility] HEMATOLOGY WBC 5.4 K/CMM 3.7 - 10.4 08/23/2014 [facility] URINE CHEM U Preg Negative (08/23/14 8:02 AM) Negative 08/23/2014 [facility] CARDIAC ENZYMES CK MB Index 1.1 0.0 - 2.5 08/09/2014 [facility] CARDIAC ENZYMES CK MB 3.7 ng/mL 0.5 - 3.6 08/09/2014 [facility] CARDIAC ENZYMES Troponin-I null 0.00 - 0.40 08/09/2014 [facility] CARDIAC ENZYMES Total CK 349 unit/L 12 - 191 08/09/2014 [facility] ELECTROLYTES AGAP 8.8 meq/L 10.0 - 20.0 08/09/2014 [facility] ELECTROLYTES B/C Ratio 16 6 - 25 08/09/2014 [facility] ELECTROLYTES A/G Ratio 1.1 0.7 - 1.6 08/09/2014 [facility] ELECTROLYTES Globulin 3.9 g/dL 2.0 - 4.0 08/09/2014 [facility] ELECTROLYTES eGFR 99 mL/min/1.73m2 08/09/2014 1Result Comment: The eGFR is calculated using [...] from the National Kidney Disease Education Program (NKDEP) which additionally recommends that when the eGFR is used in patients with extremes of body mass index for purposes of drug dosing, the eGFR should be multiplied by the estimated BMI. [facility] ELECTROLYTES Bili Total 0.7 mg/dL 0.2 - 1.3 08/09/2014 [facility] ELECTROLYTES Alk Phos 78 unit/L 39 - 136 08/09/2014 [facility] ELECTROLYTES Chloride Lvl 107 meq/L 95 - 109 08/09/2014 [facility] ELECTROLYTES Calcium Lvl 8.8 mg/dL 8.5 - 10.5 08/09/2014 [facility] ELECTROLYTES CO2 27 meq/L 24 - 32 08/09/2014 [facility] ELECTROLYTES Total Protein 8.0 g/dL 6.4 - 8.4 08/09/2014 [facility] ELECTROLYTES ALT 39 unit/L 0 - 65 08/09/2014 [facility] ELECTROLYTES Albumin Lvl 4.1 g/dL 3.5 - 5.0 08/09/2014 [facility] ELECTROLYTES AST 45 unit/L 0 - 37 08/09/2014 [facility] ELECTROLYTES Sodium Lvl 139 meq/L 135 - 145 08/09/2014 [facility] ELECTROLYTES BUN 13 mg/dL 7 - 22 08/09/2014 [facility] ELECTROLYTES Creatinine Lvl 0.8 mg/dL 0.5 - 1.4 08/09/2014 [facility] ELECTROLYTES Potassium Lvl 3.8 meq/L 3.5 - 5.1 08/09/2014 [facility] ELECTROLYTES Glucose Lvl 87 mg/dL 70 - 99 08/09/2014 2Interpretive Data: Adult reference range values reflect the clinical guidelines of the [place] [employer]. [facility] HEMATOLOGY RDW 14.2 % 11.5 - 14.5 08/09/2014 [facility] HEMATOLOGY Platelet 219 K/CMM 133 - 450 08/09/[address] [facility] MPV 9.8 fL 7.4 - 10.4 08/09/[address] [facility] Hct 43.4 % 36.0 - 48.0 08/09/[address] [facility] RBC 4.66 M/CMM 4.20 - 5.40 08/09/[address] [facility] Hgb 14.6 g/dL 12.0 - 16.0 08/09/[address] [facility] MCV 93.1 fL 80.0 - 98.0 08/09/[address] [facility] MCH 31.4 pg 27.0 - 31.0 08/09/[address] [facility] MCHC 33.7 g/dL 32.0 - 36.0 08/09/[address] [facility] WBC 7.8 K/CMM 3.7 - 10.4 08/09/[address] [facility] Basophils # 0.1 K/CMM 0.0 - 0.2 08/09/[address] [facility] Basophils 1.2 % 0.0 - 1.0 08/09/[address] [facility] Segs-Bands # 5.5 K/CMM 1.5 - 8.1 08/09/[address] [facility] Eosinophils 1.5 % 0.0 - 4.0 08/09/[address] [facility] Eosinophils # 0.1 K/CMM 0.0 - 0.5 08/09/[address] [facility] Monocytes # 0.7 K/CMM 0.0 - 0.8 08/09/[address] [facility] Lymphocytes # 1.4 K/CMM 1.0 - 5.5 08/09/[address] [facility] Segs 71.0 % 45.0 - 75.0 08/09/[address] [facility] Monocytes 8.9 % 2.0 - 12.0 08/09/[address] [facility] Lymphocytes 17.4 % 20.0 - 40.0 08/09/[address] [facility] PTT 51.3 s 22.9 - 35.8 08/09/2014 4Interpretive Data: Heparin Therapeutic Range: 57 - 92 [address] [facility] INR 2.42 0.85 - 1.17 08/09/2014 3Interpretive Data: RECOMMENDED RANGES FOR PROTIME INR: 2.0-3.0 for most medical and surgical thromboembolic states. 2.5-3.5 for artificial heart valves and recurrent embolism. INR SHOULD BE USED ONLY FOR PATIENTS ON STABLE ANTICOAGULANT THERAPY. [facility] HEMATOLOGY PT 27.1 s 12.0 - 14.7 08/09/2014 [facility] URINE AND STOOL UA Urobilinogen <=1.0 mg/dL 0.1 - 1.0 08/09/2014 [facility] URINE AND STOOL UA Color Ltyellow 08/09/2014 [facility] URINE AND STOOL UA Sq Epi None Seen 08/09/2014 [facility] URINE AND STOOL UA RBC 1 /HPF 0 - 2 08/09/2014 [facility] URINE AND STOOL UA Nitrite Negative (08/09/14 2:35 PM) Negative 08/09/2014 [facility] URINE AND STOOL UA Leuk Est Negative (08/09/14 2:35 PM) Negative 08/09/2014 [facility] URINE AND STOOL UA Ketones Negative mg/dL Negative mg/dL 08/09/2014 [facility] URINE AND STOOL UA Bili Negative *NA* (08/09/14 2:35 PM) Negative 08/09/2014 [facility] URINE AND STOOL UA Blood Negative (08/09/14 2:35 PM) Negative 08/09/2014 [facility] URINE AND STOOL UA Protein Negative mg/dL Negative mg/dL 08/09/2014 [facility] URINE AND STOOL UA Glucose Negative mg/dL Negative mg/dL 08/09/2014 [facility] URINE AND STOOL UA Spec Grav 1.001 <=1.030 08/09/2014 [facility] URINE AND STOOL UA pH 6.0 5.0 - 8.0 08/09/2014 [facility] URINE AND STOOL UA Turbidity Clear (08/09/14 2:35 PM) Clear 08/09/2014 [facility] URINE CHEM U Preg Negative (08/09/14 2:35 PM) Negative 08/09/2014 [facility] Chest 2 views Chest 2 views HISTORY: Chest pain. Two views chest Comparison 07/25/2014. Lungs are clear. Heart size within normal limits. No overt CHF. No pleural effusion. Implanted pacemaker in the left chest wall. Prior sternotomy and valvuloplasty. IMPRESSION: No acute finding. SL:16 08/09/2014 - - Read by: Sean Bryant MD Dictated Date/time: 08/09/14 14:36 Electronically Signed by: Sean Bryant MD 08/09/14 14:37 FINAL REPORT [facility] CARDIAC ENZYMES Total CK 215 unit/L 12 - 191 07/26/2014 [facility] CARDIAC ENZYMES Troponin-I null 0.00 - 0.40 07/26/2014 [facility] CARDIAC ENZYMES CK MB 1.1 ng/mL 0.5 - 3.6 07/26/2014 [facility] CARDIAC ENZYMES CK MB Index 0.5 0.0 - 2.5 07/26/2014 [facility] CHEM PANEL AST 41 unit/L 0 - 37 07/26/2014 [facility] CHEM PANEL Alk Phos 71 unit/L 39 - 136 07/26/2014 [facility] CHEM PANEL Bili Total 0.6 mg/dL 0.2 - 1.3 07/26/2014 [facility] CHEM PANEL ALT 25 unit/L 0 - 65 07/26/2014 [facility] CHEM PANEL Creatinine Lvl 0.7 mg/dL 0.5 - 1.4 07/26/2014 [facility] CHEM PANEL BUN 14 mg/dL 7 - 22 07/26/2014 [facility] CHEM PANEL Sodium Lvl 136 meq/L 135 - 145 07/26/2014 [facility] CHEM PANEL Potassium Lvl 4.2 meq/L 3.5 - 5.1 07/26/2014 [facility] CHEM PANEL eGFR 117 mL/min/1.73m2 07/26/2014 1Result Comment: The eGFR is calculated using [...] from the National Kidney Disease Education Program (NKDEP) which additionally recommends that when the eGFR is used in patients with extremes of body mass index for purposes of drug dosing, the eGFR should be multiplied by the estimated BMI. [facility] CHEM PANEL Glucose Lvl 113 mg/dL 70 - 99 07/26/2014 2Interpretive Data: Adult reference range values reflect the clinical guidelines of the [place] [employer]. [facility] CHEM PANEL Albumin Lvl 4.2 g/dL 3.5 - 5.0 07/26/2014 [facility] CHEM PANEL Total Protein 7.8 g/dL 6.4 - 8.4 07/26/2014 [facility] CHEM PANEL Chloride Lvl 103 meq/L 95 - 109 07/26/2014 [facility] CHEM PANEL Calcium Lvl 8.6 mg/dL 8.5 - 10.5 07/26/2014 [facility] CHEM PANEL CO2 26 meq/L 24 - 32 07/26/2014 [facility] CHEM PANEL A/G Ratio 1.2 0.7 - 1.6 07/26/2014 [facility] CHEM PANEL B/C Ratio 20 6 - 25 07/26/2014 [facility] CHEM PANEL AGAP 11.2 meq/L 10.0 - 20.0 07/26/2014 [facility] CHEM PANEL Globulin 3.6 g/dL 2.0 - 4.0 07/26/2014 [facility] HEMATOLOGY Platelet 194 K/CMM 133 - 450 07/26/2014 [facility] HEMATOLOGY MPV 10.4 fL 7.4 - 10.4 07/26/2014 [facility] HEMATOLOGY MCHC 33.1 g/dL 32.0 - 36.0 07/26/2014 [facility] HEMATOLOGY RDW 14.1 % 11.5 - 14.5 07/26/[address] [facility] MCH 31.2 pg 27.0 - 31.0 07/26/2014 [facility] HEMATOLOGY MCV 94.2 fL 80.0 - 98.0 07/26/2014 [facility] HEMATOLOGY Hct 42.9 % 36.0 - 48.0 07/26/2014 [facility] HEMATOLOGY WBC 8.6 K/CMM 3.7 - 10.4 07/26/2014 [facility] HEMATOLOGY RBC 4.55 M/CMM 4.20 - 5.40 07/26/2014 [facility] HEMATOLOGY Hgb 14.2 g/dL 12.0 - 16.0 07/26/2014 [facility] HEMATOLOGY Segs-Bands # 5.9 K/CMM 1.5 - 8.1 07/26/2014 [facility] HEMATOLOGY Basophils 1.0 % 0.0 - 1.0 07/26/2014 [facility] HEMATOLOGY Monocytes 8.6 % 2.0 - 12.0 07/26/2014 [facility] HEMATOLOGY Eosinophils 2.7 % 0.0 - 4.0 07/26/2014 [facility] HEMATOLOGY Lymphocytes 18.4 % 20.0 - 40.0 07/26/2014 [facility] HEMATOLOGY Segs 69.3 % 45.0 - 75.0 07/26/[address] [facility] Monocytes # 0.7 K/CMM 0.0 - 0.8 07/26/[address] [facility] Lymphocytes # 1.6 K/CMM 1.0 - 5.5 07/26/[address] [facility] Eosinophils # 0.2 K/CMM 0.0 - 0.5 07/26/[address] [facility] Basophils # 0.1 K/CMM 0.0 - 0.2 07/26/[address] [facility] PTT 41.8 s 22.9 - 35.8 07/26/2014 4Interpretive Data: Heparin Therapeutic Range: 57 - 92 Seconds [facility] INR 1.94 0.85 - 1.17 07/26/2014 3Interpretive Data: RECOMMENDED RANGES FOR PROTIME INR: 2.0-3.0 for most medical and surgical thromboembolic states. 2.5-3.5 for artificial heart valves and recurrent embolism. INR SHOULD BE USED ONLY FOR PATIENTS ON STABLE ANTICOAGULANT THERAPY. [facility] PT 22.6 s 12.0 - 14.7 07/26/2014 [facility] Chest 1view Chest 1view CHEST, ONE VIEW HISTORY: Shortness of Breath. COMPARISON: 03/11/2013 FINDINGS: The lungs are clear. No significant pleural effusion. No pneumothorax. Heart size within normal limits. Cardiac valvuloplasty and cardiac pacemaker again noted. No acute osseous abnormality. SL: 14 07/26/2014 - - Read by: Cristopher Tobar MD Dictated Date/time: 07/26/14 00:33 Electronically Signed by: Cristopher Tobar MD 07/26/14 00:34 FINAL REPORT [facility] PTT 68.6 s 22.9 - 35.8 03/15/2013 [place] 10Interpretive Data: Heparin Therapeutic Range: 57 - 92 Seconds [facility] INR 1.95 0.85 - 1.17 03/15/2013 [place] 6Interpretive Data: RECOMMENDED RANGES FOR PROTIME INR: 2.0-3.0 for most medical and surgical thromboembolic states. 2.5-3.5 for artificial heart valves and recurrent embolism. INR SHOULD BE USED ONLY FOR PATIENTS ON STABLE ANTICOAGULANT THERAPY. [facility] PT 22.3 s 12.0 - 14.7 03/15/[address] [facility] PTT 100.6 s 22.9 - 35.8 03/15/2013 CRIT 12Interpretive Data: Heparin Therapeutic Range: 57 - 92 Seconds [facility] PTT 48.9 s 22.9 - 35.8 03/15/2013 [place] 13Interpretive Data: Heparin Therapeutic Range: 57 - 92 Seconds [facility] INR 1.88 0.85 - 1.17 03/14/2013 [place] 7Interpretive Data: RECOMMENDED RANGES FOR PROTIME INR: 2.0-3.0 for most medical and surgical thromboembolic states. 2.5-3.5 for artificial heart valves and recurrent embolism. INR SHOULD BE USED ONLY FOR PATIENTS ON STABLE ANTICOAGULANT THERAPY. [facility] PT 21.7 s 12.0 - 14.7 03/14/2013 [facility] PT 18.2 s 12.0 - 14.7 03/13/2013 [facility] INR 1.49 0.85 - 1.17 03/13/2013 [place] 8Interpretive Data: RECOMMENDED RANGES FOR PROTIME INR: 2.0-3.0 for most medical and surgical thromboembolic states. 2.5-3.5 for artificial heart valves and recurrent embolism. INR SHOULD BE USED ONLY FOR PATIENTS ON STABLE ANTICOAGULANT THERAPY. [facility] Carotid artery bilateral Duplex US Carotid artery bilateral Duplex US HISTORY: TIA and dizziness. Carotid Doppler ultrasound exam. Right ICA peak systolic velocities 1.2 m/sec. Left ICA peak systolic velocity is 1.1 m/sec. The internal to common carotid artery systolic velocity ratios 1.0 on the right and 0.6 and the left. Antegrade vertebral artery flow is noted bilaterally. IMPRESSION: Less than 50 percent stenosis in the ICA bilaterally by sonographic criteria Note: "Any reported ICA stenoses indirectly reference the distal internal carotid diameter as the denominator for stenosis measurement, using consensus panel criteria." SL: 14 03/12/2013 - - Read by: Sean Bryant Dictated Date/time: 03/12/13 14:51 Electronically Signed by: Sean Bryant MD 03/12/13 14:52 FINAL REPORT [facility] CHEMISTRY LDL 82 mg/dL 0 - 129 03/12/2013 Normal [facility] CHEMISTRY CHD Risk 2.29 3.90 - 5.80 03/12/2013 LOW [facility] CHEMISTRY HDL 72 mg/dL >=35 03/12/2013 Normal [facility] CHEMISTRY Chol 165 mg/dL 120 - 200 03/12/2013 Normal [facility] CHEMISTRY Trig 55 mg/dL 0 - 200 03/12/2013 Normal [facility] CHEMISTRY Troponin-I null 0.00 - 0.40 03/12/2013 Normal [facility] CHEMISTRY Total CK 78 unit/L 12 - 191 03/12/2013 Normal [facility] CHEMISTRY CK MB Index 1.3 0.0 - 2.5 03/12/2013 Normal [facility] CHEMISTRY CK MB 1.0 ng/mL 0.5 - 3.6 03/12/2013 Normal [facility] CHEMISTRY Troponin-I null 0.00 - 0.40 03/12/2013 Normal [facility] CHEMISTRY Total CK 92 unit/L 12 - 191 03/12/2013 Normal [facility] CHEMISTRY CK MB 0.9 ng/mL 0.5 - 3.6 03/12/2013 Normal [facility] CHEMISTRY CK MB Index 1.0 0.0 - 2.5 03/12/2013 Normal [facility] HEMATOLOGY Basophils 0.4 % 0.0 - 1.0 03/12/2013 Normal [facility] HEMATOLOGY Eosinophils 3.4 % 0.0 - 4.0 03/12/2013 Normal [facility] HEMATOLOGY Segs-Bands # 5.5 K/CMM 1.5 - 8.1 03/12/2013 Normal [facility] HEMATOLOGY Lymphocytes # 2.1 K/CMM 1.0 - 5.5 03/12/2013 Normal [facility] HEMATOLOGY Lymphocytes 24.8 % 20.0 - 40.0 03/12/2013 Normal [facility] HEMATOLOGY Segs 65.2 % 45.0 - 75.0 03/12/2013 Normal [facility] HEMATOLOGY Basophils # 0.0 K/CMM 0.0 - 0.2 03/12/2013 Normal [facility] HEMATOLOGY Eosinophils # 0.3 K/CMM 0.0 - 0.5 03/12/2013 Normal [facility] HEMATOLOGY Monocytes 6.2 % 2.0 - 12.0 03/12/2013 Normal [facility] HEMATOLOGY Monocytes # 0.5 K/CMM 0.0 - 0.8 03/12/2013 Normal [facility] HEMATOLOGY D-Dimer 0.29 ug/mL FEU 03/12/2013 NA 9Interpretive Data: In DIC, quantitative D- Dimer is generally greater than 0.66 ug/mL FEU. Values of quantitative D-Dimer less than 0.40 ug/mL FEU have been reported to be associated with a low probability of deep vein thrombosis/pulmonary embolism. This test alone should not be used to rule out DVT/PE. [facility] HEMATOLOGY MPV 8.9 fL 7.4 - 10.4 03/12/2013 Normal [facility] HEMATOLOGY RDW 14.0 % 11.5 - 14.5 03/12/2013 Normal [facility] HEMATOLOGY Platelet 239 K/CMM 133 - 450 03/12/2013 Normal [facility] HEMATOLOGY MCHC 33.2 g/dL 32.0 - 36.0 03/12/2013 Normal [facility] HEMATOLOGY MCH 31.7 pg 27.0 - 31.0 03/12/2013 HI [facility] HEMATOLOGY Hct 42.3 % 36.0 - 48.0 03/12/2013 Normal [facility] HEMATOLOGY MCV 95.4 fL 81.0 - 99.0 03/12/2013 Normal [facility] HEMATOLOGY RBC 4.44 M/CMM 4.20 - 5.40 03/12/2013 Normal [facility] HEMATOLOGY Hgb 14.1 g/dL 12.0 - 16.0 03/12/2013 Normal [facility] HEMATOLOGY WBC 8.5 K/CMM 3.7 - 10.4 03/12/2013 Normal [facility] CHEMISTRY Ethanol Lvl null 03/11/2013 NA 5Interpretive Data: Negative Range: <3 mg/dL Toxic Range: >250 mg/dL [facility] CHEMISTRY Etoh (%) null 03/11/2013 NA 4Interpretive Data: Negative Range: <0.003% Toxic Range: >0.25% [facility] CHEMISTRY U Phyllis Scr Negative *NA* (03/11/2013 15:04:49) Negative 03/11/2013 [facility] CHEMISTRY U Amph Scr Negative *NA* (03/11/2013 15:04:49) Negative 03/11/2013 [facility] CHEMISTRY U Phencyc Scr Negative *NA* (03/11/2013 15:04:49) Negative 03/11/2013 [facility] CHEMISTRY U Cocaine Scr Negative *NA* (03/11/2013 15:04:49) Negative 03/11/2013 [facility] CHEMISTRY U Benzodia Scr Negative *NA* (03/11/2013 15:04:49) Negative 03/11/2013 [facility] CHEMISTRY U Cannab Scr Negative *NA* (03/11/2013 15:04:49) Negative 03/11/2013 [facility] CHEMISTRY U Opiate Scr Negative *NA* (03/11/2013 15:04:49) Negative 03/11/2013 NA [facility] CHEMISTRY UDS Note See Note 3 *NA* (03/11/2013 15:04:49) 03/11/2013 NA 3Interpretive Data: Drugs reported as positive have [...] Methadone 300 ng/mL Urine alcohol 20 mg/dL [facility] Brain wo contrast CT Brain wo contrast CT CT head without contrast. CLINICAL INDICATION: Weakness/ See Clinic Indication. Comparison: None available. TECHNIQUE: Multiple contiguous axial images of the brain were performed without IV contrast. FINDINGS: No acute territorial infarction or intracranial hemorrhage. Ventricles and subarachnoid spaces are appropriate for age. No extra-axial fluid collection. Bella-white distinction is preserved. No mass, mass-effect, or midline shift. Osseous structures normal. Visualized paranasal sinuses are unremarkable. IMPRESSION: No acute intracranial process detected. SL: 14 03/11/2013 - - Read by: Cristopher Tobar Dictated Date/time: 03/11/13 18:42 Electronically Signed by: Cristopher Tobar MD 03/11/13 18:43 FINAL REPORT [facility] CHEMISTRY Troponin-I null 0.00 - 0.40 03/11/2013 Normal [facility] CHEMISTRY CK MB 1.7 ng/mL 0.5 - 3.6 03/11/2013 Normal [facility] CHEMISTRY Total CK 119 unit/L 12 - 191 03/11/2013 Normal [facility] CHEMISTRY eGFR 124 mL/min/1.73m2 03/11/2013 NA 1Result Comment: The eGFR is calculated using [...] from the National Kidney Disease Education Program (NKDEP) which additionally recommends that when the eGFR is used in patients with extremes of body mass index for purposes of drug dosing, the eGFR should be multiplied by the estimated BMI. [facility] CHEMISTRY Calcium Lvl 8.8 mg/dL 8.5 - 10.5 03/11/2013 Normal [facility] CHEMISTRY CO2 27 meq/L 24 - 32 03/11/2013 Normal [facility] CHEMISTRY Total Protein 7.9 g/dL 6.4 - 8.4 03/11/2013 Normal [facility] CHEMISTRY Creatinine Lvl 0.6 mg/dL 0.5 - 1.4 03/11/2013 Normal [facility] CHEMISTRY Albumin Lvl 4.3 g/dL 3.5 - 5.0 03/11/2013 Normal [facility] CHEMISTRY AST 35 unit/L 0 - 37 03/11/2013 Normal [facility] CHEMISTRY Bili Total 0.9 mg/dL 0.2 - 1.3 03/11/2013 Normal [facility] CHEMISTRY AGAP 12.7 meq/L 10.0 - 20.0 03/11/2013 Normal [facility] CHEMISTRY Alk Phos 67 unit/L 39 - 136 03/11/2013 Normal [facility] CHEMISTRY ALT 25 unit/L 0 - 65 03/11/2013 Normal [facility] CHEMISTRY BUN 10 mg/dL 7 - 22 03/11/2013 Normal [facility] CHEMISTRY Glucose Lvl 117 mg/dL 70 - 99 03/11/2013 [place] 2Interpretive Data: Adult reference range values reflect the clinical guidelines of the [place] [employer]. [facility] CHEMISTRY Globulin 3.6 g/dL 2.0 - 4.0 03/11/2013 Normal [facility] CHEMISTRY B/C Ratio 17 6 - 25 03/11/2013 Normal [facility] CHEMISTRY A/G Ratio 1.2 0.7 - 1.6 03/11/2013 Normal [facility] CHEMISTRY Chloride Lvl 103 meq/L 95 - 109 03/11/2013 Normal [facility] CHEMISTRY Potassium Lvl 3.7 meq/L 3.5 - 5.1 03/11/2013 Normal [facility] CHEMISTRY Sodium Lvl 139 meq/L 135 - 145 03/11/2013 Normal [facility] CHEMISTRY CK MB Index 1.4 0.0 - 2.5 03/11/2013 Normal [facility] CHEMISTRY Phosphorus 3.1 mg/dL 2.5 - 4.5 03/11/2013 Normal [facility] CHEMISTRY Magnesium Lvl 1.4 mg/dL 1.8 - 2.4 03/11/2013 LOW [facility] HEMATOLOGY Eosinophils # 0.2 K/CMM 0.0 - 0.5 03/11/2013 Normal [facility] HEMATOLOGY Monocytes # 0.6 K/CMM 0.0 - 0.8 03/11/2013 Normal [facility] HEMATOLOGY Segs-Bands # 5.3 K/CMM 1.5 - 8.1 03/11/2013 Normal [facility] HEMATOLOGY Basophils # 0.0 K/CMM 0.0 - 0.2 03/11/2013 Normal [facility] HEMATOLOGY Monocytes 7.4 % 2.0 - 12.0 03/11/2013 Normal [facility] HEMATOLOGY Eosinophils 2.6 % 0.0 - 4.0 03/11/2013 Normal [facility] HEMATOLOGY Lymphocytes # 1.4 K/CMM 1.0 - 5.5 03/11/2013 Normal [facility] HEMATOLOGY Basophils 0.4 % 0.0 - 1.0 03/11/2013 Normal [facility] HEMATOLOGY Segs 70.7 % 45.0 - 75.0 03/11/2013 Normal [facility] HEMATOLOGY Lymphocytes 18.9 % 20.0 - 40.0 03/11/2013 LOW [facility] HEMATOLOGY MCV 95.2 fL 81.0 - 99.0 03/11/2013 Normal [facility] HEMATOLOGY Platelet 223 K/CMM 133 - 450 03/11/2013 Normal [facility] HEMATOLOGY MPV 9.0 fL 7.4 - 10.4 03/11/2013 Normal [facility] HEMATOLOGY MCHC 32.9 g/dL 32.0 - 36.0 03/11/2013 Normal [facility] HEMATOLOGY RDW 13.8 % 11.5 - 14.5 03/11/2013 Normal [facility] HEMATOLOGY MCH 31.3 pg 27.0 - 31.0 03/11/2013 HI [facility] HEMATOLOGY Hct 43.0 % 36.0 - 48.0 03/11/2013 Normal [facility] HEMATOLOGY WBC 7.5 K/CMM 3.7 - 10.4 03/11/2013 Normal [facility] HEMATOLOGY RBC 4.51 M/CMM 4.20 - 5.40 03/11/2013 Normal [facility] HEMATOLOGY Hgb 14.1 g/dL 12.0 - 16.0 03/11/2013 Normal [facility] CHEMISTRY U Preg Negative (03/11/2013 13:20:00) Negative 03/11/2013 Normal [facility] Chest 1view Chest 1view CHEST, portable (1 view) 9 2012 @ 14: 17 HISTORY: Chest pain. Comparison is made to 08/28/2012. FINDINGS: There are post sternotomy changes. 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 Borderline cardiomegaly. There is no evidence of failure. No evidence of an active or acute process. The lungs are clear. A small nodular density projecting over the right base is felt to represent a shadow from the right nipple. There are no pleural effusions. There is a left subclavian dual lead transvenous pacemaker. The regional skeleton is unremarkable. CONCLUSION: 1. No active or acute disease. 2. Poststernotomy changes. Prosthetic mitral valve is noted per 3. Borderline cardiomegaly. 4. There is a left subclavian dual lead transvenous pacemaker. Coding: Chest 1view CPT code: 54850 Dictation code: 13 (SE) 03/11/2013 - - Read by: Jaden Martinez Dictated Date/time: 03/11/13 15:06 Electronically Signed by: Jaden Martinez MD 03/11/13 15:08 FINAL REPORT [facility] CHEMISTRY eGFR 101 mL/min/1.73m2 10/01/2012 NA 1Result Comment: The eGFR is calculated using [...] from the National Kidney Disease Education Program (NKDEP) which additionally recommends that when the eGFR is used in patients with extremes of body mass index for purposes of drug dosing, the eGFR should be multiplied by the estimated BMI. [facility] CHEMISTRY CO2 27 meq/L 24 - 32 10/01/2012 Normal [facility] CHEMISTRY BUN 7 mg/dL 7 - 22 10/01/2012 Normal [facility] CHEMISTRY Creatinine Lvl 0.8 mg/dL 0.5 - 1.4 10/01/2012 Normal [facility] CHEMISTRY Calcium Lvl 8.2 mg/dL 8.5 - 10.5 10/01/2012 LOW [facility] CHEMISTRY Glucose Lvl 88 mg/dL 70 - 99 10/01/2012 Normal 2Interpretive Data: Adult reference range values reflect the clinical guidelines of the [place] [employer]. [facility] CHEMISTRY Sodium Lvl 144 meq/L 135 - 145 10/01/2012 Normal [facility] CHEMISTRY Potassium Lvl 3.9 meq/L 3.5 - 5.1 10/01/2012 Normal [facility] CHEMISTRY Chloride Lvl 108 meq/L 95 - 109 10/01/2012 Normal [facility] CHEMISTRY AGAP 12.9 meq/L 10.0 - 20.0 10/01/2012 Normal [facility] HEMATOLOGY INR 1.89 0.85 - 1.17 10/01/2012 [place] 3Interpretive Data: RECOMMENDED RANGES FOR PROTIME INR: 2.0-3.0 for most medical and surgical thromboembolic states. 2.5-3.5 for artificial heart valves and recurrent embolism. INR SHOULD BE USED ONLY FOR PATIENTS ON STABLE ANTICOAGULANT THERAPY. [facility] HEMATOLOGY PT 21.8 s 12.0 - 14.7 10/01/2012 [facility] HEMATOLOGY RDW 13.8 % 11.5 - 14.5 10/01/2012 Normal [facility] HEMATOLOGY Platelet 134 K/CMM 133 - 450 10/01/2012 Normal [facility] HEMATOLOGY MPV 9.3 fL 7.4 - 10.4 10/01/2012 Normal [facility] HEMATOLOGY MCH 31.5 pg 27.0 - 31.0 10/01/2012 [facility] HEMATOLOGY MCV 91.4 fL 81.0 - 99.0 10/01/2012 Normal [facility] HEMATOLOGY MCHC 34.5 g/dL 32.0 - 36.0 10/01/2012 Normal [facility] HEMATOLOGY Hct 36.9 % 36.0 - 48.0 10/01/2012 Normal [facility] HEMATOLOGY RBC 4.04 M/CMM 4.20 - 5.40 10/01/2012 LOW [facility] HEMATOLOGY Hgb 12.7 g/dL 12.0 - 16.0 10/01/2012 Normal [facility] HEMATOLOGY WBC 7.6 K/CMM 3.7 - 10.4 10/01/2012 Normal [facility] HEMATOLOGY Basophils # 0.0 K/CMM 0.0 - 0.2 10/01/2012 Normal [facility] HEMATOLOGY Eosinophils # 0.2 K/CMM 0.0 - 0.5 10/01/2012 Normal [facility] HEMATOLOGY Lymphocytes # 1.3 K/CMM 1.0 - 5.5 10/01/2012 Normal [facility] HEMATOLOGY Segs-Bands # 5.2 K/CMM 1.5 - 8.1 10/01/2012 Normal [facility] HEMATOLOGY Monocytes # 0.9 K/CMM 0.0 - 0.8 10/01/2012 HI [facility] HEMATOLOGY Eosinophils 2.5 % 0.0 - 4.0 10/01/2012 Normal [facility] HEMATOLOGY Monocytes 11.3 % 2.0 - 12.0 10/01/2012 Normal [facility] HEMATOLOGY Basophils 0.4 % 0.0 - 1.0 10/01/2012 Normal [facility] Lymphocytes 17.3 % 20.0 - 40.0 10/01/2012 LOW [facility] HEMATOLOGY Segs 68.5 % 45.0 - 75.0 10/01/2012 Normal [facility] PT 16.5 s 12.0 - 14.7 08/28/2012 HI [facility] HEMATOLOGY INR 1.31 0.85 - 1.17 08/28/2012 [place] 3Interpretive Data: RECOMMENDED RANGES FOR PROTIME INR: 2.0-3.0 for most medical and surgical thromboembolic states. 2.5-3.5 for artificial heart valves and recurrent embolism. INR SHOULD BE USED ONLY FOR PATIENTS ON STABLE ANTICOAGULANT THERAPY. [facility] HEMATOLOGY PTT 40.0 s 22.9 - 35.8 08/28/2012 [place] 6Interpretive Data: Heparin Therapeutic Range: 57 - 92 Seconds [facility] CHEMISTRY eGFR 101 mL/min/1.73m2 08/27/2012 NA 1Result Comment: The eGFR is calculated using [...] from the National Kidney Disease Education Program (NKDEP) which additionally recommends that when the eGFR is used in patients with extremes of body mass index for purposes of drug dosing, the eGFR should be multiplied by the estimated BMI. [facility] CHEMISTRY Calcium Lvl 8.4 mg/dL 8.5 - 10.5 08/27/2012 LOW [facility] CHEMISTRY AGAP 12.6 meq/L 10.0 - 20.0 08/27/2012 Normal [facility] CHEMISTRY Chloride Lvl 108 meq/L 95 - 109 08/27/2012 Normal [facility] CHEMISTRY CO2 27 meq/L 24 - 32 08/27/2012 Normal [facility] CHEMISTRY Potassium Lvl 3.6 meq/L 3.5 - 5.1 08/27/2012 Normal [facility] CHEMISTRY BUN 14 mg/dL 7 - 22 08/27/2012 Normal [facility] CHEMISTRY Creatinine Lvl 0.8 mg/dL 0.5 - 1.4 08/27/2012 Normal [facility] CHEMISTRY Glucose Lvl 92 mg/dL 70 - 99 08/27/2012 Normal 2Interpretive Data: Adult reference range values reflect the clinical guidelines of the [place] [employer]. [facility] CHEMISTRY Sodium Lvl 144 meq/L 135 - 145 08/27/2012 Normal [facility] HEMATOLOGY INR 1.55 0.85 - 1.17 08/27/2012 HI 4Interpretive Data: RECOMMENDED RANGES FOR PROTIME INR: 2.0-3.0 for most medical and surgical thromboembolic states. 2.5-3.5 for artificial heart valves and recurrent embolism. INR SHOULD BE USED ONLY FOR PATIENTS ON STABLE ANTICOAGULANT THERAPY. [facility] HEMATOLOGY PT 18.7 s 12.0 - 14.7 08/27/2012 HI [facility] HEMATOLOGY PTT 44.1 s 22.9 - 35.8 08/27/2012 HI 7Interpretive Data: Heparin Therapeutic Range: 57 - 92 Seconds [facility] CHEMISTRY U Preg Negative (08/26/2012 15:46:00) Negative 08/26/2012 Normal [facility] CHEMISTRY CK MB 1.2 ng/mL 0.5 - 3.6 08/26/2012 Normal [facility] HEMATOLOGY PTT 38.2 s 22.9 - 35.8 08/26/2012 HI 8Interpretive Data: Heparin Therapeutic Range: 57 - 92 Seconds [facility] HEMATOLOGY INR 1.37 0.85 - 1.17 08/26/2012 [place] 5Interpretive Data: RECOMMENDED RANGES FOR PROTIME INR: 2.0-3.0 for most medical and surgical thromboembolic states. 2.5-3.5 for artificial heart valves and recurrent embolism. INR SHOULD BE USED ONLY FOR PATIENTS ON STABLE ANTICOAGULANT THERAPY. [facility] HEMATOLOGY PT 17.0 s 12.0 - 14.7 08/26/2012 HI [facility] HEMATOLOGY MCHC 33.7 g/dL 32.0 - 36.0 08/26/2012 Normal [facility] HEMATOLOGY Platelet 183 K/CMM 133 - 450 08/26/2012 Normal [facility] RDW 13.8 % 11.5 - 14.5 08/26/2012 Normal [facility] MPV 9.8 fL 7.4 - 10.4 08/26/2012 Normal [facility] MCH 31.4 pg 27.0 - 31.0 08/26/2012 [facility] HEMATOLOGY RBC 4.79 M/CMM 4.20 - 5.40 08/26/2012 Normal [facility] HEMATOLOGY WBC 7.4 K/CMM 3.7 - 10.4 08/26/2012 Normal [facility] Hct 44.6 % 36.0 - 48.0 08/26/2012 Normal [facility] Hgb 15.0 g/dL 12.0 - 16.0 08/26/2012 Normal [facility] HEMATOLOGY MCV 93.1 fL 81.0 - 99.0 08/26/2012 Normal [facility] HEMATOLOGY Basophils 1.1 % 0.0 - 1.0 08/26/2012 [facility] HEMATOLOGY Segs-Bands # 4.7 K/CMM 1.5 - 8.1 08/26/2012 Normal [facility] HEMATOLOGY Basophils # 0.1 K/CMM 0.0 - 0.2 08/26/2012 Normal [facility] HEMATOLOGY Eosinophils # 0.2 K/CMM 0.0 - 0.5 08/26/2012 Normal [facility] HEMATOLOGY Monocytes # 0.6 K/CMM 0.0 - 0.8 08/26/2012 Normal [facility] HEMATOLOGY Lymphocytes # 1.8 K/CMM 1.0 - 5.5 08/26/2012 Normal [facility] HEMATOLOGY Segs 64.0 % 45.0 - 75.0 08/26/2012 Normal [facility] HEMATOLOGY Monocytes 8.4 % 2.0 - 12.0 08/26/2012 Normal [facility] HEMATOLOGY Lymphocytes 24.3 % 20.0 - 40.0 08/26/2012 Normal [facility] HEMATOLOGY Eosinophils 2.2 % 0.0 - 4.0 08/26/2012 Normal [facility] URINALYSIS UA Color Ltyellow 08/26/2012 NA [facility] URINALYSIS UA Urobilinogen <=1.0 mg/dL
*NA*
(08/26/2012 15:46:00) <sup> </sup> 0.1 - 1.0 08/26/2012 NA [facility] URINALYSIS UA pH 8.0 5.0 - 8.0 08/26/2012 Normal [facility] URINALYSIS UA Spec Grav 1.003 <=1.030 08/26/2012 Normal [facility] URINALYSIS UA Turbidity Clear (08/26/2012 15:46:00) Clear 08/26/2012 Normal [facility] URINALYSIS UA Leuk Est Negative (08/26/2012 15:46:00) Negative 08/26/2012 Normal [facility] URINALYSIS UA Sq Epi Occasional /LPF *NA* (08/26/2012 15:46:00) Few 08/26/2012 NA [facility] URINALYSIS UA Nitrite Negative (08/26/2012 15:46:00) Negative 08/26/2012 Normal [facility] URINALYSIS UA Bili Negative *NA* (08/26/2012 15:46:00) Negative 08/26/2012 [facility] URINALYSIS UA Blood Negative (08/26/2012 15:46:00) Negative 08/26/2012 Normal [facility] URINALYSIS UA Glucose Negative mg/dL *NA* (08/26/2012 15:46:00) Negative 08/26/2012 [facility] URINALYSIS UA Ketones Negative mg/dL *NA* (08/26/2012 15:46:00) Negative 08/26/2012 [facility] URINALYSIS UA Protein Negative mg/dL (08/26/2012 15:46:00) Negative 08/26/2012 Normal [facility] CHEMISTRY Magnesium Lvl 1.7 mg/dL 1.8 - 2.4 06/05/2012 LOW [facility] CHEMISTRY Chloride Lvl 113 meq/L 95 - 109 06/05/2012 [facility] CHEMISTRY CO2 24 meq/L 24 - 32 06/05/2012 Normal [facility] CHEMISTRY Potassium Lvl 3.7 meq/L 3.5 - 5.1 06/05/2012 Normal [facility] CHEMISTRY Sodium Lvl 147 meq/L 135 - 145 06/05/2012 [facility] CHEMISTRY Calcium Lvl 7.5 mg/dL 8.5 - 10.5 06/05/2012 LOW [facility] CHEMISTRY Glucose Lvl 91 mg/dL 70 - 99 06/05/2012 Normal 1Interpretive Data: Adult reference range values reflect the clinical guidelines of the [place] [employer]. [facility] CHEMISTRY BUN 9 mg/dL 7 - 22 06/05/2012 Normal [facility] CHEMISTRY Creatinine Lvl 0.8 mg/dL 0.5 - 1.4 06/05/2012 Normal [facility] CHEMISTRY AGAP 13.7 meq/L 10.0 - 20.0 06/05/2012 Normal [facility] HEMATOLOGY PT 27.1 s 12.0 - 14.7 06/05/2012 [facility] HEMATOLOGY INR 2.55 0.85 - 1.17 06/05/2012 [place] 2Interpretive Data: RECOMMENDED RANGES FOR PROTIME INR: 2.0-3.0 for most medical and surgical thromboembolic states. 2.5-3.5 for artificial heart valves and recurrent embolism. INR SHOULD BE USED ONLY FOR PATIENTS ON STABLE ANTICOAGULANT THERAPY. [facility] HEMATOLOGY Lymphocytes # 1.4 K/CMM 1.0 - 5.5 06/05/2012 Normal [facility] HEMATOLOGY Eosinophils # 0.1 K/CMM 0.0 - 0.5 06/05/2012 Normal [facility] HEMATOLOGY Segs-Bands # 4.1 K/CMM 1.5 - 8.1 06/05/2012 Normal [facility] HEMATOLOGY Basophils 0.4 % 0.0 - 1.0 06/05/2012 Normal [facility] HEMATOLOGY Monocytes # 0.5 K/CMM 0.0 - 0.8 06/05/2012 [facility] HEMATOLOGY Basophils # 0.0 K/CMM 0.0 - 0.2 06/05/2012 Normal [facility] HEMATOLOGY Eosinophils 2.3 % 0.0 - 4.0 06/05/2012 Normal [facility] HEMATOLOGY Lymphocytes 23.3 % 20.0 - 40.0 06/05/2012 Normal [facility] HEMATOLOGY Monocytes 7.9 % 2.0 - 12.0 06/05/2012 Normal [facility] HEMATOLOGY Segs 66.1 % 45.0 - 75.0 06/05/2012 Normal [facility] HEMATOLOGY Platelet 144 K/CMM 133 - 450 06/05/2012 Normal [facility] HEMATOLOGY RDW 14.4 % 11.5 - 14.5 06/05/2012 Normal [facility] HEMATOLOGY MPV 9.8 fL 7.4 - 10.4 06/05/2012 Normal [facility] HEMATOLOGY MCHC 33.3 g/dL 32.0 - 36.0 06/05/2012 Normal [facility] HEMATOLOGY WBC 6.1 K/CMM 3.7 - 10.4 06/05/2012 Normal [facility] HEMATOLOGY RBC 3.48 M/CMM 4.20 - 5.40 06/05/2012 LOW [facility] HEMATOLOGY Hgb 10.9 g/dL 12.0 - 16.0 06/05/2012 LOW [facility] HEMATOLOGY Hct 32.6 % 36.0 - 48.0 06/05/2012 LOW [facility] HEMATOLOGY MCV 93.7 fL 81.0 - 99.0 06/05/2012 Normal [facility] HEMATOLOGY MCH 31.2 pg 27.0 - 31.0 06/05/2012 HI [facility] Vital Signs Vital Sign Value Date Comments Source BMI Calculated 27.59 02/17/2018 [facility] Weight 77.301 02/17/2018 [facility] Height 167.39 cm 02/17/2018 [facility] Respitory Rate 16 02/17/2018 [facility] Heart Rate 86 02/17/2018 [facility] Temperature Oral (F) 97.8 F 02/17/2018 [facility] Systolic (mm Hg) 130 02/17/2018 [facility] Diastolic (mm Hg) 80 02/17/2018 [facility] BMI Calculated 28.2 01/05/2018 [facility] Weight 77.813 01/05/2018 [facility] Height 166.12 cm 01/05/2018 [facility] Heart Rate 72 01/05/2018 [facility] Temperature Oral (F) 97.9 F 01/05/2018 [facility] Respitory Rate 18 01/05/2018 [facility] Systolic (mm Hg) 123 01/05/2018 [facility] Diastolic (mm Hg) 76 01/05/2018 [facility] Heart Rate 70 10/12/2017 [facility] Respitory Rate 18 10/12/2017 [facility] Temperature Oral (F) 98.8 F 10/12/2017 [facility] Systolic (mm Hg) 119 10/12/2017 [facility] Diastolic (mm Hg) 72 10/12/2017 [facility] Heart Rate 76 10/12/2017 [facility] Respitory Rate 18 10/12/2017 [facility] Temperature Oral (F) 98.3 F 10/12/2017 [facility] Systolic (mm Hg) 129 10/12/2017 [facility] Diastolic (mm Hg) 72 10/12/2017 [facility] Heart Rate 72 10/12/2017 [facility] Systolic (mm Hg) 136 10/12/2017 [facility] Diastolic (mm Hg) 69 10/12/2017 [facility] Temperature Oral (F) 98.6 F 10/12/2017 [facility] Respitory Rate 18 10/12/2017 [facility] Height 172.72 cm 10/10/2017 [facility] Weight 80.909 10/10/2017 [facility] BMI Calculated 27.12 10/10/2017 [facility] Systolic (mm Hg) 112 09/02/2017 [facility] Diastolic (mm Hg) 55 09/02/2017 [facility] Systolic (mm Hg) 108 09/02/2017 [facility] Diastolic (mm Hg) 54 09/02/2017 [facility] Temperature Oral (F) 98.8 F 09/02/2017 [facility] Systolic (mm Hg) 108 09/02/2017 [facility] Diastolic (mm Hg) 56 09/02/2017 [facility] Temperature Oral (F) 99.8 F 09/01/2017 [facility] Respitory Rate 20 09/01/2017 [facility] Respitory Rate 19 09/01/2017 [facility] Respitory Rate 20 09/01/2017 [facility] BMI Calculated 28.79 09/01/2017 [facility] Weight 80.909 09/01/2017 [facility] Height 167.64 cm 09/01/2017 [facility] Systolic (mm Hg) 121 08/12/2017 [facility] Diastolic (mm Hg) 59 08/12/2017 [facility] Systolic (mm Hg) 118 08/12/2017 [facility] Diastolic (mm Hg) 58 08/12/2017 [facility] Systolic (mm Hg) 117 08/12/2017 [facility] Diastolic (mm Hg) 58 08/12/2017 [facility] Weight 78.636 08/12/2017 [facility] BMI Calculated 27.98 08/12/2017 [facility] Height 167.64 cm 08/12/2017 [facility] Systolic (mm Hg) 127 07/27/2015 [facility] Diastolic (mm Hg) 60 07/27/2015 [facility] Systolic (mm Hg) 130 07/27/2015 [facility] Diastolic (mm Hg) 61 07/27/2015 [facility] Systolic (mm Hg) 117 07/27/2015 [facility] Diastolic (mm Hg) 57 07/27/2015 [facility] Temperature Oral (F) 98.2 F 07/27/2015 [facility] Temperature Oral (F) 98.4 F 07/27/2015 [facility] Temperature Oral (F) 98.6 F 07/27/2015 [facility] Respitory Rate 18 07/27/2015 [facility] Respitory Rate 19 07/27/2015 [facility] Respitory Rate 18 07/27/2015 [facility] Weight 80.625 07/26/2015 [facility] BMI Calculated 28.69 07/26/2015 [facility] Height 167.64 cm 07/26/2015 [facility] Respitory Rate 18 06/10/2015 [facility] Heart Rate 81 06/10/2015 [facility] Temperature Oral (F) 98.1 F 06/10/2015 [facility] Systolic (mm Hg) 131 06/10/2015 [facility] Diastolic (mm Hg) 69 06/10/2015 [facility] Weight 79.545 06/10/2015 [facility] BMI Calculated 28.3 06/10/2015 [facility] Height 167.64 cm 06/10/2015 [facility] Temperature Oral (F) 98.5 F 06/10/2015 [facility] Respitory Rate 20 06/10/2015 [facility] Heart Rate 78 06/10/2015 [facility] Systolic (mm Hg) 147 06/10/2015 [facility] Diastolic (mm Hg) 100 06/10/2015 [facility] Diastolic (mm Hg) 51 08/24/2014 [facility] Systolic (mm Hg) 111 08/24/2014 [facility] Systolic (mm Hg) 100 08/24/2014 [facility] Diastolic (mm Hg) 49 08/24/2014 [facility] Diastolic (mm Hg) 52 08/24/2014 [facility] Systolic (mm Hg) 97 08/24/2014 [facility] Respitory Rate 20 08/23/2014 [facility] Respitory Rate 24 08/23/2014 [facility] Respitory Rate 24 08/23/2014 [facility] Height 170.18 cm 08/23/2014 [facility] BMI Calculated 25.9 08/23/2014 [facility] Weight 75 08/23/2014 [facility] Temperature Oral (F) 97.5 F 08/09/2014 [facility] Heart Rate 76 08/09/2014 [facility] Respitory Rate 16 08/09/2014 [facility] Systolic (mm Hg) 112 08/09/2014 [facility] Diastolic (mm Hg) 64 08/09/2014 [facility] Height 170.18 cm 08/09/2014 [facility] Weight 75.909 08/09/2014 [facility] BMI Calculated 26.21 08/09/2014 [facility] Temperature Oral (F) 97.6 F 08/09/2014 [facility] Respitory Rate 20 08/09/2014 [facility] Heart Rate 110 08/09/2014 [facility] Diastolic (mm Hg) 90 08/09/2014 [facility] Systolic (mm Hg) 139 08/09/2014 [facility] Heart Rate 90 07/26/2014 [facility] Respitory Rate 18 07/26/2014 [facility] Systolic (mm Hg) 121 07/26/2014 [facility] Diastolic (mm Hg) 70 07/26/2014 [facility] Temperature Oral (F) 98.8 F 07/26/2014 [facility] Temperature Oral (F) 98.6 F 07/26/2014 [facility] Rate 18 07/26/2014 [facility] Heart Rate 96 07/26/2014 [facility] Systolic (mm Hg) 118 07/26/2014 [facility] Diastolic (mm Hg) 66 07/26/2014 [facility] Height 170.18 cm 07/26/2014 [facility] BMI Calculated 25.11 07/26/2014 [facility] Weight 72.727 07/26/2014 [facility] Heart Rate 90 07/26/2014 [facility] Diastolic (mm Hg) 73 07/26/2014 [facility] Systolic (mm Hg) 156 07/26/2014 [facility] Temperature Oral (F) 97.9 F 07/26/2014 [facility] Resp[facility] Rate 20 07/26/2014 [facility] Temperature Oral (F) 98.4 F 03/15/2013 [facility] Systolic (mm Hg) 104 03/15/2013 [facility] Diastolic (mm Hg) 63 03/15/2013 [facility] Heart Rate 88 03/15/2013 [facility] Rate 18 03/15/2013 [facility] Rate 18 03/15/2013 [facility] Systolic (mm Hg) 111 03/15/2013 [facility] Heart Rate 91 03/15/2013 [facility] Diastolic (mm Hg) 69 03/15/2013 [facility] Temperature Oral (F) 98.2 F 03/15/2013 [facility] Temperature Oral (F) 97.4 F 03/15/2013 [facility] Systolic (mm Hg) 107 03/15/2013 [facility] Respitory Rate 18 03/15/2013 [facility] Heart Rate 85 03/15/2013 [facility] Diastolic (mm Hg) 67 03/15/2013 [facility] Weight 68.8 03/15/2013 [facility] Weight 81.818 03/12/2013 [facility] Weight 79.545 03/11/2013 [facility] Height 170.18 cm 03/11/2013 [facility] Respitory Rate 18 10/01/2012 [facility] Heart Rate 96 10/01/2012 [facility] Systolic (mm Hg) 106 10/01/2012 [facility] Diastolic (mm Hg) 69 10/01/2012 [facility] Temperature Oral (F) 98.0 F 10/01/2012 [facility] Temperature Oral (F) 98.1 F 10/01/2012 [facility] Resp[facility] Rate 16 10/01/2012 [facility] Systolic (mm Hg) 108 10/01/2012 [facility] Heart Rate 81 10/01/2012 [facility] Diastolic (mm Hg) 66 10/01/2012 [facility] Temperature Oral (F) 98.5 F 10/01/2012 [facility] Heart Rate 97 10/01/2012 [facility] Resp[facility] Rate 16 10/01/2012 [facility] Systolic (mm Hg) 117 10/01/2012 [facility] Diastolic (mm Hg) 71 10/01/2012 [facility] Weight 78.636 10/01/2012 [facility] Height 170.18 cm 10/01/2012 [facility] Weight 77.273 09/30/2012 [facility] Height 172.72 cm 09/30/2012 [facility] Systolic (mm Hg) 127 08/28/2012 [facility] Diastolic (mm Hg) 82 08/28/2012 [facility] Resp[facility] Rate 18 08/28/2012 [facility] Heart Rate 94 08/28/2012 [facility] Temperature Oral (F) 98.0 F 08/28/2012 [facility] Temperature Oral (F) 97.8 F 08/28/2012 [facility] Heart Rate 91 08/28/2012 [facility] Diastolic (mm Hg) 70 08/28/2012 [facility] Systolic (mm Hg) 113 08/28/2012 [facility] Respitory Rate 18 08/28/2012 [facility] Diastolic (mm Hg) 79 08/28/2012 [facility] Systolic (mm Hg) 130 08/28/2012 [facility] Respitory Rate 18 08/28/2012 [facility] Heart Rate 101 08/28/2012 [facility] Temperature Oral (F) 98.1 F 08/28/2012 [facility] Height 170.18 cm 08/27/2012 [facility] Weight 79.176 08/27/2012 [facility] Height 170.18 cm 08/26/2012 [facility] Weight 72.727 08/26/2012 [facility] Diastolic (mm Hg) 58 06/05/2012 [facility] Temperature Oral (F) 98.1 F 06/05/2012 [facility] Systolic (mm Hg) 110 06/05/2012 [facility] Respitory Rate 16 06/05/2012 [facility] Heart Rate 65 06/05/2012 [facility] Diastolic (mm Hg) 46 06/05/2012 [facility] Systolic (mm Hg) 102 06/05/2012 [facility] Respitory Rate 18 06/05/2012 [facility] Temperature Oral (F) 97 F 06/05/2012 [facility] Heart Rate 65 06/05/2012 [facility] Respitory Rate 16 06/05/2012 [facility] Heart Rate 67 06/05/2012 [facility] Diastolic (mm Hg) 48 06/05/2012 [facility] [facility] Systolic (mm Hg) 109 06/05/2012 [facility] Temperature Oral (F) 96.4 F 06/05/2012 [facility] Height 170.18 cm 06/04/2012 [facility] Weight 75.199 06/04/2012 [facility] Height 170.18 cm 06/04/2012 [facility] Weight 75.199 06/04/2012 [facility] Encounters Location Location Details Encounter Type Encounter Number Reason For Visit Attending Provider ADM Date DC Date Status Source [facility] OU [id number] SVT TANISHA MAXINE 06/04/2012 06/05/2012 Active [facility] Inpatient [id number] VAUGHN ALICEAGIOVANY 08/26/2012 08/28/2012 Active [facility] Inpatient [id number] DR DMITRIY CHASE 09/30/2012 10/01/2012 Active [facility] Inpatient [id number] VAUGHN ALICEANATJAIRO 03/11/2013 03/15/2013 Active [facility] [id number] Juventino Reyes 07/26/2014 07/26/2014 [facility] [id number] Supriya Carrillo 08/09/2014 08/09/2014 [facility] [id number] Tanisha Magaña 08/23/2014 08/24/2014 [facility] [id number] Juventino Reyes 06/10/2015 06/10/2015 [facility] [id number] Tanisha Magaña 07/27/2015 07/27/2015 [facility] Bedded Outpatient [id number] Tanisha Magaña 08/12/2017 08/13/2017 [facility] Bedded Outpatient [id number] Tanisha Magaña 09/01/2017 09/02/2017 [facility] Bedded Outpatient [id number] Neal Roberts 10/10/2017 10/13/2017 [facility] Outpatient [id number] Yared Villalta 01/05/2018 01/06/2018 [facility] Outpatient [id number] Yared Villalta 02/17/2018 02/18/2018 [facility] Procedures Procedure Code Date Perfomer Comments Source Cardiac pacemaker procedure [id number] [facility] Mitral valve operation [id number] [facility] Cardiac pacemaker procedure [id number] [facility] Mitral valve operation [id number] [facility] Cardiac pacemaker procedure [id number] [facility] Open heart surgery [id number] [facility] Open heart surgery [id number] [facility]
--- OUTSIDE RECORDS SUMMARY | 2018-12-29 07:27 | XMS REPORT | Summary of Care ---
Author Organization Unknown Address Unknown Phone Unavailable Encounter HQ Josi(SHAUNA) [id number] Date(s): 07/25/14 - 07/26/14 [facility] [address] [address] Discharge Diagnosis: Chest pain Discharge Disposition: Home Physician Attending: Juventino Reyes MD Reason for Visit ANXIETY ATTACK Vital Signs 1 2 3 Most recent to oldest [Reference Range]: 170.18 cm (07/25/14 8:32 PM) Height 98.8 DegF (07/26/14 2:19 AM) 98.6 DegF (07/26/14 12:30 AM) 97.9 DegF (07/25/14 8:32 PM) Temperature Oral [96.4-99.1 DegF] 121 mmHg (07/26/14 2:19 AM) 118 mmHg (07/26/14 12:30 AM) 156 mmHg *HI* (07/25/14 8:32 PM) Systolic Blood Pressure [90-140 mmHg] 70 mmHg (07/26/14 2:19 AM) 66 mmHg (07/26/14 12:30 AM) 73 mmHg (07/25/14 8:32 PM) Diastolic Blood Pressure [60-90 mmHg] 18 BRMIN (07/26/14 2:19 AM) 18 BRMIN (07/26/14 12:30 AM) 20 BRMIN (07/25/14 8:32 PM) Respiratory Rate [14-20 BRMIN] 90 bpm (07/26/14 2:19 AM) 96 bpm (07/26/14 12:30 AM) 90 bpm (07/25/14 8:32 PM) Peripheral Pulse Rate [60-100 bpm] 72.727 kg (07/25/14 8:32 PM) Weight 25.11 m2 (07/25/14 8:32 PM) Body Mass Index Problem List Condition Effective Dates Status Health Status Informant AF - Atrial Active fibrillation(Confirm ed) Cardiac Active pacemaker(Confirmed) Mitral valve Resolved disease(Confirmed) MVR - Mitral valve Active replacement(Confirme d) Pacemaker(Confirmed) Resolved Palpitations(Confirm Active ed) SVT - Active Supraventricular tachycardia(Confirme d) Allergies, Adverse Reactions, Alerts Substance Reaction Severity Status NKDA Active Medications No data available for this section Results ELECTROLYTES Most recent to 1 oldest [Reference Range]: Sodium Lvl [135-145 136 mEq/L mEq/L] (07/25/14 11:50 PM) Potassium Lvl 4.2 mEq/L [3.5-5.1 mEq/L] (07/25/14 11:50 PM) Chloride Lvl [95-109 103 mEq/L mEq/L] (07/25/14 11:50 PM) CO2 [24-32 mEq/L] 26 mEq/L (07/25/14 11:50 PM) AGAP [10.0-20.0 11.2 mEq/L mEq/L] (07/25/14 11:50 PM) CHEM PANEL Most recent to 1 oldest [Reference Range]: Creatinine Lvl 0.7 mg/dL [0.5-1.4 mg/dL] (07/25/14 11:50 PM) eGFR 117 mL/min/1.73m2 1 *NA* (07/25/14 11:50 PM) BUN [7-22 mg/dL] 14 mg/dL (07/25/14 11:50 PM) B/C Ratio [6-25] 20 (07/25/14 11:50 PM) Glucose Lvl [70-99 113 mg/dL 2 mg/dL] *HI* (07/25/14 11:50 PM) Total Protein 7.8 g/dL [6.4-8.4 g/dL] (07/25/14 11:50 PM) Albumin Lvl [3.5-5.0 4.2 g/dL g/dL] (07/25/14 11:50 PM) Globulin [2.0-4.0 3.6 g/dL g/dL] (07/25/14 11:50 PM) A/G Ratio [0.7-1.6] 1.2 (07/25/14 11:50 PM) Calcium Lvl 8.6 mg/dL [8.5-10.5 mg/dL] (07/25/14 11:50 PM) ALT [0-65 unit/L] 25 unit/L (07/25/14 11:50 PM) AST [0-37 unit/L] 41 unit/L *HI* (07/25/14 11:50 PM) Alk Phos [39-136 71 unit/L unit/L] (07/25/14 11:50 PM) Bili Total [0.2-1.3 0.6 mg/dL mg/dL] (07/25/14 11:50 PM) 1Result Comment: The eGFR is calculated [...] values reflect the clinical guidelines of the [place] [employer]. CARDIAC ENZYMES Most recent to 1 oldest [Reference Range]: Total CK [12-191 215 unit/L unit/L] *HI* (07/25/14 11:50 PM) CK MB [0.5-3.6 1.1 ng/mL ng/mL] (07/25/14 11:50 PM) CK MB Index 0.5 [0.0-2.5] (07/25/14 11:50 PM) Troponin-I <0.02 ng/mL [0.00-0.40 ng/mL] (07/25/14 11:50 PM) HEMATOLOGY Most recent to 1 oldest [Reference Range]: WBC [3.7-10.4 K/CMM] 8.6 K/CMM (07/25/14 11:50 PM) RBC [4.20-5.40 4.55 M/CMM M/CMM] (07/25/14 11:50 PM) Hgb [12.0-16.0 g/dL] 14.2 g/dL (07/25/14 11:50 PM) Hct [36.0-48.0 %] 42.9 % (07/25/14 11:50 PM) MCV [80.0-98.0 fL] 94.2 fL (07/25/14 11:50 PM) MCH [27.0-31.0 pg] 31.2 pg *HI* (07/25/14 11:50 PM) MCHC [32.0-36.0 33.1 g/dL g/dL] (07/25/14 11:50 PM) RDW [11.5-14.5 %] 14.1 % (07/25/14 11:50 PM) Platelet [133-450 194 K/CMM K/CMM] (07/25/14 11:50 PM) MPV [7.4-10.4 fL] 10.4 fL (07/25/14 11:50 PM) Segs [45.0-75.0 %] 69.3 % (07/25/14 11:50 PM) Lymphocytes 18.4 % [20.0-40.0 %] *LOW* (07/25/14 11:50 PM) Monocytes [2.0-12.0 8.6 % %] (07/25/14 11:50 PM) Eosinophils [0.0-4.0 2.7 % %] (07/25/14 11:50 PM) Basophils [0.0-1.0 1.0 % %] (07/25/14 11:50 PM) Segs-Bands # 5.9 K/CMM [1.5-8.1 K/CMM] (07/25/14 11:50 PM) Lymphocytes # 1.6 K/CMM [1.0-5.5 K/CMM] (07/25/14 11:50 PM) Monocytes # [0.0-0.8 0.7 K/CMM K/CMM] (07/25/14 11:50 PM) Eosinophils # 0.2 K/CMM [0.0-0.5 K/CMM] (07/25/14 11:50 PM) Basophils # [0.0-0.2 0.1 K/CMM K/CMM] (07/25/14 11:50 PM) PT [12.0-14.7 22.6 seconds seconds] *HI* (07/25/14 11:50 PM) INR [0.85-1.17] 1.94 3 *HI* (07/25/14 11:50 PM) PTT [22.9-35.8 41.8 seconds 4 seconds] *HI* (07/25/14 11:50 PM) 3Interpretive Data: RECOMMENDED RANGES FOR PROTIME INR: 2.0-3.0 for most medical and surgical thromboembolic states. 2.5-3.5 for artificial heart valves and recurrent embolism. INR SHOULD BE USED ONLY FOR PATIENTS ON STABLE ANTICOAGULANT THERAPY. 4Interpretive Data: Heparin Therapeutic Range: 57 - 92 Seconds Medications Administered During Your Visit No data available for this section Immunizations Vaccine Date Refusal Reason influenza virus vaccine, inactivated 10/01/12 Social History Social History Type Response
--- OUTSIDE RECORDS SUMMARY | 2018-12-29 07:28 | XMS REPORT | Summary of Care ---
Author Author [facility] Organization [facility] Address Unknown Phone Unavailable Encounter CAMERON Prater(SHAUNA) [id number] Date(s): 08/12/17 - 08/12/17 [facility] [address] [employer] provided by [facility] [place] [address]- Discharge Disposition: Home or Self Care Attending Physician: Ivonne Magaña MD Admitting Physician: Ivonne Magaña MD Referring Physician: Ivonne Magaña MD Vital Signs 1 2 3 Most recent to oldest [Reference Range]: 167.64 cm (08/12/17 10:11 AM) Height 121/59 mmHg (08/12/17 6:15 PM) 118/58 mmHg (08/12/17 6:00 PM) 117/58 mmHg (08/12/17 5:45 PM) Blood Pressure [90-140/60-90 mmHg] 78.636 kg (08/12/17 10:11 AM) Weight 27.98 m2 (08/12/17 10:11 AM) Body Mass Index Problem List Condition Effective Dates Status Health Status Informant AF - Atrial Active fibrillation(Confirm ed) Cardiac Active pacemaker(Confirmed) Mitral valve Resolved disease(Confirmed) Mitral valve Active disease(Confirmed) MVR - Mitral valve Active replacement(Confirme d) Pacemaker(Confirmed) Active Palpitations(Confirm Active ed) Palpitations(Confirm Active ed) SVT - Active Supraventricular tachycardia(Confirme d) Allergies, Adverse Reactions, Alerts Substance Reaction Severity Status NKDA Active Medications ceFAZolin 1 gm, Route: IVPB, Drug form: PDR/INJ, ONCE, Dosing Weight 78.636, kg, Start elaine e: 08/12/17 10:13:00 CDT, Stop date: 08/12/17 10:13:00 CDT, ABX Indication: Open Wound Prophylaxis Notes: (Same As: Ancef, Kefzol) MEDICATION WASTE Product Size: 1000 mgP roduct Wasted: ___ mg Start Date: 08/12/17 Stop Date: 08/12/17 Status: Ordered Lovenox 80 mg/0.8 mL subcutaneous solution 80 mg, SUB-Q, Q12H, X 7 day, # 14 ea, 0 Refill(s) Start Date: 08/12/17 Stop Date: 08/19/17 Status: Ordered metoprolol tartrate 100 mg oral tablet 100 mg=1 tab, PO, BID, # 180 tab, 1 Refill(s) Start Date: 08/12/17 Status: Ordered sodium chloride 0.9% 1000 ml INJ 1,000 mL 1,000 mL, Rate: 100 ml/hr, Infuse over: 10 hr, Route: IV, Dosing Weight 78.636 k g, Total Volume: 1,000, Start date: 08/12/17 10:12:00 CDT, Duration: 30 day, Sto p date: 09/11/17 10:11:00 [employer]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 Start Date: 08/12/17 Stop Date: 08/13/17 Status: Discontinued Results BLOOD BANK RESULTS Most recent to 1 oldest [Reference Range]: ABO/Rh O POS *Unknown* (08/12/17 10: AM) Antibody Scrn Negative (08/12/17 10: AM) ELECTROLYTES Most recent to 1 oldest [Reference Range]: Sodium Lvl [135-145 139 mEq/L mEq/L] (08/12/17 10: AM) Potassium Lvl 3.9 mEq/L [3.5-5.1 mEq/L] (08/12/17 10: AM) Chloride Lvl [95-109 106 mEq/L mEq/L] (08/12/17 10: AM) CO2 [24-32 mEq/L] 28 mEq/L (08/12/17 10: AM) AGAP [10.0-20.0 8.9 mEq/L mEq/L] *LOW* (08/12/17 10: AM) CHEM PANEL Most recent to 1 oldest [Reference Range]: Creatinine Lvl 0.58 mg/dL [0.50-1.40 mg/dL] (08/12/17 10:17 AM) eGFR 121 mL/min/1.73m2 1 *NA* (08/12/17 10: AM) BUN [7-22 mg/dL] 6 mg/dL *LOW* (08/12/17 AM) Glucose Lvl [70-99 92 mg/dL mg/dL] (08/12/17:17 AM) Calcium Lvl 8.5 mg/dL [8.5-10.5 mg/dL] (08/12/17 AM) Magnesium Lvl 1.7 mg/dL [1.8-2.4 mg/dL] *LOW* (08/12/17 10: AM) 1Result Comment: The eGFR is calculated using [...] be mul tiplied by the estimated BMI. URINE CHEM Most recent to 1 oldest [Reference Range]: U Preg [Negative] Negative (08/12/17 10:44 AM) HEMATOLOGY Most recent to 1 oldest [Reference Range]: WBC [3.7-10.4 K/CMM] 4.7 K/CMM (08/12/17 10:17 AM) RBC [4.20-5.40 4.67 M/CMM M/CMM] (08/12/17 10: AM) Hgb [12.0-16.0 g/dL] 14.3 g/dL (08/12/17 10 AM) Hct [36.0-48.0 %] 43.1 % (08/12/17 10: AM) MCV [80.0-98.0 fL] 92.4 fL (08/12/17 AM) MCH [27.0-31.0 pg] 30.6 pg (08/12/17: AM) MCHC [32.0-36.0 33.2 g/dL g/dL] (08/12/17 AM) RDW [11.5-14.5 %] 14.0 % (08/12/17: AM) Platelet [133-450 190 K/CMM K/CMM] (08/12/17 AM) MPV [7.4-10.4 fL] 9.5 fL (08/12/17 AM) Segs [45.0-75.0 %] 62.5 % (08/12/17 AM) Lymphocytes 22.9 % [20.0-40.0 %] (08/12/17 AM) Monocytes [2.0-12.0 9.8 % %] (08/12/17: AM) Eosinophils [0.0-4.0 3.7 % %] (08/12/17 AM) Basophils [0.0-1.0 1.1 % %] *HI* (08/12/17: AM) Segs-Bands # 2.9 K/CMM [1.5-8.1 K/CMM] (08/12/17: AM) Lymphocytes # 1.1 K/CMM [1.0-5.5 K/CMM] (08/12/17: AM) Monocytes # [0.0-0.8 0.5 K/CMM K/CMM] (08/12/17: AM) Eosinophils # 0.2 K/CMM [0.0-0.5 K/CMM] (08/12/17:17 AM) Basophils # [0.0-0.2 0.1 K/CMM K/CMM] (08/12/17: AM) PT [12.0-14.7 14.3 seconds seconds] (08/12/17:17 AM) INR [0.85-1.17] 1.09 (08/12/17: AM) PTT [22.9-35.8 30.5 seconds seconds] (08/12/17 10:17 AM) Immunizations Given and Recorded Vaccine Date Status Refusal Reason influenza virus vaccine, inactivated 07/27/15 Given influenza virus vaccine, inactivated 10/01/12 Given pneumococcal 23-valent vaccine 07/27/15 Given Procedures Procedure Date Related Diagnosis Body Site Cardiac pacemaker procedure Mitral valve operation Social History Social History Type Response Substance Abuse Use: None. Alcohol Never Smoking Status Never smoker; Type: Cigarettes; Stopped at age: 28; Ready to change: No; Concerns about tobacco use in household: No; Exposure to Tobacco Smoke None; Cigarette Smoking Last 365 Days No; Reg Smoking Cessation Counseling No Assessment and Plan No data available for this section
--- OUTSIDE RECORDS SUMMARY | 2018-12-29 07:28 | XMS REPORT | Summary of Care ---
Author Organization Unknown Address Unknown Phone Unavailable Encounter CAMERON Freed) [id number] Date(s): 08/23/14 - 08/23/14 [facility] [address] Discharge Disposition: Home Physician Attending: Ivonne Magaña MD Physician Admitting: Ivonne Magaña MD Physician_Referring: Ivonne Magaña MD Reason for Visit AFIB, AFLUTTER Vital Signs 1 2 3 Most recent to oldest [Reference Range]: 170.18 cm (08/23/14 8:01 AM) Height 111 mmHg (08/23/14 9:00 PM) 100 mmHg (08/23/14 8:30 PM) 97 mmHg (08/23/14 8:00 PM) Systolic Blood Pressure [90-140 mmHg] 51 mmHg *LOW* (08/23/14 9:00 PM) 49 mmHg *LOW* (08/23/14 8:30 PM) 52 mmHg *LOW* (08/23/14 8:00 PM) Diastolic Blood Pressure [60-90 mmHg] 20 BRMIN (08/23/14 4:00 PM) 24 BRMIN *HI* (08/23/14 3:45 PM) 24 BRMIN *HI* (08/23/14 3:30 PM) Respiratory Rate [14-20 BRMIN] 75 kg (08/23/14 8:01 AM) Weight 25.9 m2 (08/23/14 8:01 AM) Body Mass Index Problem List Condition Effective Dates Status Health Status Informant AF - Atrial Active fibrillation(Confirm ed) Cardiac Active pacemaker(Confirmed) Mitral valve Resolved disease(Confirmed) Mitral valve Active disease(Confirmed) MVR - Mitral valve Active replacement(Confirme d) Pacemaker(Confirmed) Resolved Palpitations(Confirm Active ed) Palpitations(Confirm Active ed) SVT - Active Supraventricular tachycardia(Confirme d) Allergies, Adverse Reactions, Alerts Substance Reaction Severity Status NKDA Active Medications atenolol 100 mg oral tablet 100 mg=1 tab, PO, Daily, # 30 tab, 0 Refill(s) Start Date: 08/23/14 Status: Ordered atenolol 100 mg oral tablet 100 mg, 1 tab, Route: PO, Drug form: TAB, Daily, Dosing Weight 75, kg, Start elaine e: 08/24/14 9:00:00, Duration: 30 day, Stop date: 09/22/14 9:00:00 Notes: (Same As:Tenormin) Start Date: 08/24/14 Stop Date: 08/24/14 Status: Discontinued Coumadin 15 mg, PO, Daily, 0 Refill(s) Start Date: 08/23/14 Status: Ordered Coumadin 15 mg, 3 tab, Route: PO, Drug form: TAB, Q5PM, Dosing Weight 75, kg, Start date: 08/23/14 18:00:00, Duration: 1 doses or times, Stop date: 08/23/14 18:00:00 Notes: Nurse to ensure documentation of patient education per anticoagulation po licy.Avoid large intake of vitamin-K containing foods diet.(Same As: Coumadin) Start Date: 08/23/14 Stop Date: 08/23/14 Status: Pending Complete fentaNYL 50 microgram, 1 mL, Route: IVP, Drug form: INJ, Q5Min, Dosing Weight 75, kg, PRN Pain Score 7-10, Start date: 08/23/14 14:31:00, Duration: 2 doses or times, Stop date: 08/23/14 17:00:00 Notes: (Same as: Sublimaze) Preservative free. Start Date: 08/23/14 Stop Date: 08/23/14 Status: Discontinued flumazenil 0.2 mg, 2 mL, Route: IVP, Drug form: INJ, PRN, Dosing Weight 75, kg, PRN Benzodi azepine Reversal, Initial dose, Start date: 08/23/14 14:31:00, Duration: 30 day, Stop date: 09/22/14 13:30:00 Notes: (Same as: Romazicon) Start Date: 08/23/14 Stop Date: 08/23/14 Status: Discontinued hydromorphone 0.5 mg, 0.25 mL, Route: IVP, Drug form: INJ, Q5Min, Dosing Weight 75, kg, PRN Pa in Score 7-10, Start date: 08/23/14 14:31:00, Duration: 4 doses or times, Stop d ate: 08/23/14 17:00:00 Notes: Same as: Dilaudid Start Date: 08/23/14 Stop Date: 08/23/14 Status: Discontinued labetalol 10 mg, 2 mL, Route: IVP, Drug form: INJ, Q5Min, Dosing Weight 75, kg, PRN Elevat ed BP, Start date: 08/23/14 14:31:00, Duration: 5 doses or times, Stop date: 17:00:00 Start Date: 08/23/14 Stop Date: 08/23/14 Status: Discontinued meperidine 12.5 mg, 0.5 mL, Route: IVP, Drug form: INJ, Q30Min, Dosing Weight 75, kg, PRN O ther -See Comment, For shivering, Start date: 08/23/14 14:31:00, Duration: 2 dos es or times, Stop date: 08/23/14 17:00:00 Notes: (Same as: Demerol) "Use Precaution in Elderly, Seizure disorders, and Re nal impairment" Start Date: 08/23/14 Stop Date: 08/23/14 Status: Discontinued morphine Sulfate 2 mg, 1 mL, Route: IVP, Drug form: INJ, Q5Min, Dosing Weight 75, kg, PRN Pain Sc ore 4-6, Start date: 08/23/14 14:31:00, Duration: 5 doses or times, Stop date: 1 17:00:00 Notes: (Same as:MORPhine Sulfate) Start Date: 08/23/14 Stop Date: 08/23/14 Status: Discontinued morphine Sulfate 2 mg, 1 mL, Route: IVP, Drug form: INJ, Q2H, Dosing Weight 75, kg, PRN Pain Scor e 7-10, Start date: 08/23/14 16:38:00, Duration: 30 day, Stop date: 09/22/14 16: 37:00 Notes: (Same as:MORPhine Sulfate) Start Date: 08/23/14 Stop Date: 08/24/14 Status: Discontinued naloxone 0.04 mg, 0.1 mL, Route: IVP, Drug form: INJ, Q2MIN, Dosing Weight 75, kg, PRN Na rcotic Reversal, Start date: 08/23/14 14:31:00, Duration: 8 doses or times, Stop date: 08/23/14 17:00:00 Notes: (Same as: Narcan) Start Date: 08/23/14 Stop Date: 08/23/14 Status: Discontinued ondansetron 4 mg, 2 mL, Route: IVP, Drug form: INJ, ONCE, Dosing Weight 75, kg, Start date: 08/23/14 14:31:00, Stop date: 08/23/14 14:31:00 Notes: (Same as: Zofran) Start Date: 08/23/14 Stop Date: 08/23/14 Status: Discontinued protamine 25 mg, Route: IV, Drug form: INJ, ONCE, Dosing Weight 75, kg, Start date: 16:06:00, Stop date: 08/23/14 16:06:00 Start Date: 08/23/14 Stop Date: 08/23/14 Status: Completed Saline Flush 0.9% 10 ml, Route: IVP, Drug Form: INJ, Dosing Weight 75, kg, Q12H, Start date: 08/23 9:00:00, Duration: 30 day, Stop date: 09/21/14 21:00:00 Notes: (Same as: BD Posiflush) Start Date: 08/23/14 Stop Date: 08/24/14 Status: Discontinued Saline Flush 0.9% 10 ml, Route: IVP, Drug Form: INJ, Dosing Weight 75, kg, PRN, PRN Line Flush, St art date: 08/23/14 8:03:00, Duration: 30 day, Stop date: 09/22/14 7:02:00 Notes: (Same as: BD Posiflush) Start Date: 08/23/14 Stop Date: 08/24/14 Status: Discontinued Results ELECTROLYTES Most recent to 1 2 oldest [Reference Range]: Sodium Lvl [135-145 142 mEq/L mEq/L] (08/23/14 8:05 AM) Potassium Lvl 3.9 mEq/L [3.5-5.1 mEq/L] (08/23/14 8:05 AM) Chloride Lvl [95-109 106 mEq/L mEq/L] (08/23/14 8:05 AM) CO2 [24-32 mEq/L] 28 mEq/L (08/23/14 8:05 AM) AGAP [10.0-20.0 11.9 mEq/L mEq/L] (08/23/14 8:05 AM) CHEM PANEL Most recent to 1 2 oldest [Reference Range]: Creatinine Lvl 0.8 mg/dL [0.5-1.4 mg/dL] (08/23/14 8:05 AM) eGFR 99 mL/min/1.73m2 1 *NA* (08/23/14 8:05 AM) BUN [7-22 mg/dL] 10 mg/dL (08/23/14 8:05 AM) Glucose Lvl [70-99 84 mg/dL 2 mg/dL] (08/23/14 8:05 AM) Calcium Lvl 8.3 mg/dL [8.5-10.5 mg/dL] *LOW* (08/23/14 8:05 AM) Magnesium Lvl 1.6 mg/dL [1.8-2.4 mg/dL] *LOW* (08/23/14 8:05 AM) 1Result Comment: The eGFR is calculated [...] values reflect the clinical guidelines of the [place] [employer]. URINE CHEM Most recent to 1 2 oldest [Reference Range]: U Preg [Negative] Negative (08/23/14 8:02 AM) HEMATOLOGY Most recent to 1 2 oldest [Reference Range]: WBC [3.7-10.4 K/CMM] 5.4 K/CMM (08/23/14 8:05 AM) RBC [4.20-5.40 4.35 M/CMM M/CMM] (08/23/14 8:05 AM) Hgb [12.0-16.0 g/dL] 13.7 g/dL (08/23/14 8:05 AM) Hct [36.0-48.0 %] 40.7 % (08/23/14 8:05 AM) MCV [80.0-98.0 fL] 93.6 fL (08/23/14 8:05 AM) MCH [27.0-31.0 pg] 31.5 pg *HI* (08/23/14 8:05 AM) MCHC [32.0-36.0 33.6 g/dL g/dL] (08/23/14 8:05 AM) RDW [11.5-14.5 %] 13.8 % (08/23/14 8:05 AM) Platelet [133-450 156 K/CMM K/CMM] (08/23/14 8:05 AM) MPV [7.4-10.4 fL] 10.0 fL (08/23/14 8:05 AM) Segs [45.0-75.0 %] 67.8 % (08/23/14 8:05 AM) Lymphocytes 18.7 % [20.0-40.0 %] *LOW* (08/23/14 8:05 AM) Monocytes [2.0-12.0 9.7 % %] (08/23/14 8:05 AM) Eosinophils [0.0-4.0 2.9 % %] (08/23/14 8:05 AM) Basophils [0.0-1.0 0.9 % %] (08/23/14 8:05 AM) Segs-Bands # 3.7 K/CMM [1.5-8.1 K/CMM] (08/23/14 8:05 AM) Lymphocytes # 1.0 K/CMM [1.0-5.5 K/CMM] (08/23/14 8:05 AM) Monocytes # [0.0-0.8 0.5 K/CMM K/CMM] (08/23/14 8:05 AM) Eosinophils # 0.2 K/CMM [0.0-0.5 K/CMM] (08/23/14 8:05 AM) Basophils # [0.0-0.2 0.2 K/CMM K/CMM] (08/23/14 8:05 AM) PT [12.0-14.7 23.3 seconds seconds] *HI* (08/23/14 8:05 AM) INR [0.85-1.17] 2.01 3 *HI* (08/23/14 8:05 AM) POC Activated 164 seconds 359 seconds Clotting Time *NA* *NA* (08/23/14 4:27 PM) (08/23/14 3:29 PM) PTT [22.9-35.8 41.4 seconds 4 seconds] *HI* (08/23/14 8:05 AM) 3Interpretive Data: RECOMMENDED RANGES FOR PROTIME INR: [...] 10/01/12 Social History Social History Type Response Smoking Status Former smoker, Type: Cigarettes, Exposure to Tobacco Smoke None, Cigarette Smoking Last 365 Days No, Reg Smoking Cessation Counseling No
--- OUTSIDE RECORDS SUMMARY | 2018-12-29 07:28 | XMS REPORT | Summary of Care ---
Author Author [facility] Organization [facility] Address Unknown Phone Unavailable Encounter CAMERON Prater(SHAUNA) [id number] Date(s): 01/05/18 - 01/05/18 [facility] [address], [address] [place] [address]- Encounter Diagnosis Leakage of heart valve prosthesis, initial encounter (Final) - 01/09/18 Unspecified atrial fibrillation (Final) - Long QT syndrome (Final) - Discharge Disposition: Home or Self Care Attending Physician: Yared Villalta MD Referring Physician: Yared Villalta MD Vital Signs Most recent to 1 oldest [Reference Range]: Height 166.12 cm (01/05/18 9:06 AM) Temperature Oral 97.9 DegF [96.4-99.1 DegF] (01/05/18 9:06 AM) Blood Pressure 123/76 mmHg [90-140/60-90 mmHg] (01/05/18 9:06 AM) Respiratory Rate 18 BRMIN [14-20 BRMIN] (01/05/18 9:06 AM) Peripheral Pulse 72 bpm Rate [60-100 bpm] (01/05/18 9:06 AM) Weight 77.813 kg (01/05/18 9:06 AM) Body Mass Index 28.2 m2 (01/05/18 9:06 AM) Problem List Condition Effective Dates Status Health Status Informant AF - Atrial Active fibrillation(Confirm ed) Atrial Resolved fibrillation(Confirm ed) Mitral valve Resolved disease(Confirmed) Mitral valve Active disease(Confirmed) MVR - Mitral valve Active replacement(Confirme d) Pacemaker(Confirmed) Active Palpitations(Confirm Active ed) Palpitations(Confirm Active ed) SVT - Active Supraventricular tachycardia(Confirme d) Allergies, Adverse Reactions, Alerts Substance Reaction Severity Status NKDA Active Medications Non-Formulary Home Medication PO, Daily, Refill(s) 0 Start Date: 01/02/18 Status: Ordered Non-Formulary Home Medication PO, Daily, Refill(s) 0 Start Date: 01/02/18 Status: Ordered Non-Formulary Home Medication PO, Daily, Refill(s) 0 Start Date: 01/02/18 Status: Ordered Non-Formulary Home Medication PO, Daily, Refill(s) 0 Start Date: 01/02/18 Status: Ordered Non-Formulary Home Medication PO, Daily, Refill(s) 0 Start Date: 01/02/18 Status: Ordered Results No data available for this section Immunizations Given and Recorded Vaccine Date Status Refusal Reason influenza virus vaccine, inactivated 07/27/15 Given influenza virus vaccine, inactivated 10/01/12 Given pneumococcal 23-valent vaccine 07/27/15 Given Procedures Procedure Date Related Diagnosis Body Site Status Cardiac pacemaker procedure Completed Mitral valve operation Completed Open heart surgery Completed Social History Social History Type Response Substance Abuse Use: None. Alcohol Never Smoking Status Never smoker; Type: Cigarettes; Ready to change: No; Concerns about tobacco use in household: No; Exposure to Tobacco Smoke None; Cigarette Smoking Last 365 Days No; Reg Smoking Cessation Counseling No; Stopped at age: 28; entered on: 02/17/18 Assessment and Plan No data available for this section
--- OUTSIDE RECORDS SUMMARY | 2018-12-29 07:28 | XMS REPORT | Summary of Care ---
Author Author [facility] Organization [facility] Address Unknown Phone Unavailable Encounter CAMERON Prater(SHAUNA) [id number] Date(s): 10/10/17 - 10/12/17 [facility] [address] [place] [address]- Discharge Disposition: Home or Self Care Attending Physician: Neal Roberts MD Referring Physician: Neal Roberts MD Vital Signs 1 2 3 Most recent to oldest [Reference Range]: 172.72 cm (10/10/17 12:13 PM) Height 98.8 DegF (10/12/17 4:00 PM) 98.3 DegF (10/12/17 12:07 PM) 98.6 DegF (10/12/17 8:05 AM) Temperature Oral [96.4-99.1 DegF] 119/72 mmHg (10/12/17 4:00 PM) 129/72 mmHg (10/12/17 12:07 PM) 136/69 mmHg (10/12/17 8:05 AM) Blood Pressure [90-140/60-90 mmHg] 18 BRMIN (10/12/17 4:00 PM) 18 BRMIN (10/12/17 12:07 PM) 18 BRMIN (10/12/17 8:05 AM) Respiratory Rate [14-20 BRMIN] 70 bpm (10/12/17 4:00 PM) 76 bpm (10/12/17 12:07 PM) 72 bpm (10/12/17 8:05 AM) Peripheral Pulse Rate [60-100 bpm] 80.909 kg (10/10/17 12:13 PM) Weight 27.12 m2 (10/10/17 12:13 PM) Body Mass Index Problem List Condition Effective Dates Status Health Status Informant AF - Atrial Active fibrillation(Confirm ed) Atrial Resolved fibrillation(Confirm ed) Cardiac Active pacemaker(Confirmed) Mitral valve Resolved disease(Confirmed) Mitral valve Active disease(Confirmed) MVR - Mitral valve Active replacement(Confirme d) Pacemaker(Confirmed) Active Palpitations(Confirm Active ed) Palpitations(Confirm Active ed) SVT - Active Supraventricular tachycardia(Confirme d) Allergies, Adverse Reactions, Alerts Substance Reaction Severity Status NKDA Active Medications acetaminophen-hydrocodone 325 mg-5 mg oral tablet 1 tab, Route: PO, Drug Form: TAB, Dosing Weight 80.909, kg, Q4H, PRN Pain Score 4-6, Start date: 10/10/17 16:14:00 BILLING ANALYST, Duration: 30 day, Stop date: 11/09/17 16 :13:00 BILLING ANALYST Notes: (Same as: [place] 325/5) Do not exceed 4gm/day of acetaminophen. Start Date: 10/10/17 Stop Date: 10/12/17 Status: Discontinued Coumadin 10 mg, 1 tab, Route: PO, Drug form: TAB, Q5PM, Dosing Weight 80.909, kg, Start d ate: 10/11/17 17:00:00 BILLING ANALYST, Duration: 30 day, Stop date: 11/09/17 17:00:00 BILLING ANALYST Notes: Nurse to ensure documentation of patient education per anticoagulation po licy.Avoid large intake of vitamin-K containing foods diet.(Same As: Coumadin)NICOLE PEDRO: F/P - P Waste Black; E - P Waste Black Start Date: 10/11/17 Stop Date: 10/12/17 Status: Discontinued Coumadin 2.5 mg, 1 tab, Route: PO, Drug form: TAB, Q5PM, Start date: 10/11/17 17:00:00 CS T, Duration: 30 day, Stop date: 11/09/17 17:00:00 BILLING ANALYST Notes: Nurse to ensure documentation of patient education per anticoagulation po licy.Avoid large intake of vitamin-K containing foods diet.(Same As: Coumadin)NICOLE PEDRO: F/P - P Waste Black; E - P Waste Black Start Date: 10/11/17 Stop Date: 10/12/17 Status: Discontinued Coumadin 12.5 mg, PO, Daily, 0 Refill(s) Start Date: 10/10/17 Status: Ordered diphenhydrAMINE 25 mg, 1 tab, Route: PO, Drug form: TAB, Bedtime, Dosing Weight 80.909, kg, PRN Insomnia, Start date: 10/10/17 16:14:00 BILLING ANALYST, Duration: 30 day, Stop date: 16:13:00 BILLING ANALYST Start Date: 10/10/17 Stop Date: 10/12/17 Status: Discontinued dofetilide 500 microgram, 2 cap, Route: PO, Drug form: CAP, Q12H, Dosing Weight 80.909, kg, Start date: 10/10/17 21:00:00 BILLING ANALYST, Duration: 30 day, Stop date: 11/09/17 9:00:00 BILLING ANALYST Notes: (Same as: Tikosyn)Providers should enter the orders via the "Dofetilide I nitiation Orders MPP" to ensure compliance with the REMS program. Start Date: 10/10/17 Stop Date: 10/12/17 Status: Discontinued dofetilide 250 mcg oral capsule 500 microgram=2 cap, PO, Q12H, 0 Refill(s) Start Date: 10/12/17 Status: Ordered heparin additive 25,000 unit [14 unit/kg/hr] + Premix Diluent Dextrose 5% 500 mL 500 mL, Rate: 19.8 ml/hr, Infuse over: 25.3 hr, Route: IV, Dosing Weight 70.7 kg , Total Volume: 500 mL, Start date: 10/11/17 12:10:00 BILLING ANALYST, Duration: 30 day, Sto p date: 11/10/17 12:09:00 BILLING ANALYST, 1.85, m2 Start Date: 10/11/17 Stop Date: 10/12/17 Status: Discontinued metoprolol tartrate 50 mg, 1 tab, Route: PO, Drug form: TAB, BID, Dosing Weight 80.909, kg, Start da te: 10/10/17 17:00:00 BILLING ANALYST, Duration: 30 day, Stop date: 11/09/17 9:00:00 BILLING ANALYST Notes: (Same as: Lopressor) Start Date: 10/10/17 Stop Date: 10/12/17 Status: Discontinued metoprolol tartrate 50 mg, PO, BID, 0 Refill(s) Start Date: 10/10/17 Status: Ordered morphine Sulfate 4 mg, 2 mL, Route: IVP, Drug form: SOLN, Q2H, Dosing Weight 80.909, kg, PRN Pain Score 7-10, Start date: 10/10/17 16:14:00 BILLING ANALYST, Duration: 30 day, Stop date: 05/20 16:13:00 BILLING ANALYST Start Date: 10/10/17 Stop Date: 10/12/17 Status: Discontinued nitroglycerin SL Tab 0.4 mg, 1 tab, Route: SL, Drug form: TAB, Q5Min, Dosing Weight 80.909, kg, PRN C hest Pain, Start date: 10/10/17 16:14:00 BILLING ANALYST, Duration: 3 doses or times, Stop d ate: Limited # of times Notes: (Same as:Nitroquick, Nitrostat)"Do Not Crush" Sublingual tablet Start Date: 10/10/17 Stop Date: 10/12/17 Status: Discontinued ondansetron 4 mg, 1 tab, Route: PO, Drug form: TAB, Q8H, Dosing Weight 80.909, kg, PRN Nause a & Vomiting, Start date: 10/10/17 16:14:00 BILLING ANALYST, Duration: 30 day, Stop date: 11/09/17 16:13:00 BILLING ANALYST Notes: (Same as: Zofran) Start Date: 10/10/17 Stop Date: 10/12/17 Status: Discontinued Saline Flush 0.9% 10 ml, Route: IVP, Drug Form: INJ, Dosing Weight 80.909, kg, Q12H, Start date: 1 12/11/16 21:00:00 BILLING ANALYST, Duration: 30 day, Stop date: 11/09/17 9:00:00 BILLING ANALYST Notes: (Same as: BD Posiflush) Start Date: 10/10/17 Stop Date: 10/12/17 Status: Discontinued Saline Flush 0.9% 10 ml, Route: IVP, Drug Form: INJ, Dosing Weight 80.909, kg, PRN, PRN Line Flush , Start date: 10/10/17 16:14:00 BILLING ANALYST, Duration: 30 day, Stop date: 11/09/17 16:13 :00 BILLING ANALYST Notes: (Same as: BD Posiflush) Start Date: 10/10/17 Stop Date: 10/12/17 Status: Discontinued temazepam 15 mg, 1 cap, Route: PO, Drug form: CAP, Bedtime, Dosing Weight 80.909, kg, PRN Insomnia, Start date: 10/10/17 16:14:00 BILLING ANALYST, Duration: 30 day, Stop date: 16:13:00 BILLING ANALYST Notes: (Same As: Restoril) Start Date: 10/10/17 Stop Date: 10/12/17 Status: Discontinued Results ELECTROLYTES 1 2 3 Most recent to oldest [Reference Range]: 141 mEq/L (10/10/17 6:34 PM) 142 mEq/L (10/10/17 12:29 PM) Sodium Lvl [135-145 mEq/L] 4.3 mEq/L (10/10/17 6:34 PM) 4.2 mEq/L (10/10/17 12:29 PM) Potassium Lvl [3.5-5.1 mEq/L] 107 mEq/L (10/10/17 6:34 PM) 108 mEq/L (10/10/17 12:29 PM) Chloride Lvl [95-109 mEq/L] 24 mEq/L (10/10/17 6:34 PM) 26 mEq/L (10/10/17 12:29 PM) CO2 [24-32 mEq/L] 14.3 mEq/L (10/10/17 6:34 PM) 12.2 mEq/L (10/10/17 12:29 PM) AGAP [10.0-20.0 mEq/L] CHEM PANEL 1 2 3 Most recent to oldest [Reference Range]: 0.65 mg/dL (10/10/17 6:34 PM) 0.75 mg/dL (10/10/17 12:29 PM) Creatinine Lvl [0.50-1.40 mg/dL] 117 mL/min/1.73m2 1 *NA* (10/10/17 6:34 PM) 105 mL/min/1.73m2 2 *NA* (10/10/17 12:29 PM) eGFR 8 mg/dL (10/10/17 6:34 PM) 8 mg/dL (10/10/17 12:29 PM) BUN [7-22 mg/dL] 11 (10/10/17 12:29 PM) B/C Ratio [6-25] 84 mg/dL (10/10/17 6:34 PM) 111 mg/dL *HI* (10/10/17 12:29 PM) Glucose Lvl [70-99 mg/dL] 7.4 g/dL (10/10/17 12:29 PM) Total Protein [6.4-8.4 g/dL] 3.8 g/dL (10/10/17 12:29 PM) Albumin Lvl [3.5-5.0 g/dL] 3.6 g/dL (10/10/17 12:29 PM) Globulin [2.7-4.2 g/dL] 1.1 (10/10/17 12:29 PM) A/G Ratio [0.7-1.6] 8.1 mg/dL *LOW* (10/10/17 6:34 PM) 8.4 mg/dL *LOW* (10/10/17 12:29 PM) Calcium Lvl [8.5-10.5 mg/dL] 23 unit/L (10/10/17 12:29 PM) ALT [0-65 unit/L] 26 unit/L (10/10/17 12:29 PM) AST [0-37 unit/L] 62 unit/L (10/10/17 12:29 PM) Alk Phos [39-136 unit/L] 0.7 mg/dL (10/10/17 12:29 PM) Bili Total [0.2-1.3 mg/dL] 1Result Comment: The eGFR is calculated using [...] be mul tiplied by the estimated BMI. 2Result Comment: The eGFR is calculated using the [...] be mul tiplied by the estimated BMI. ENDOCRINOLOGY 1 2 3 Most recent to oldest [Reference Range]: Negative *NA* (10/10/17 12:29 PM) S Preg [Negative] HEMATOLOGY 1 2 3 Most recent to oldest [Reference Range]: 6.1 K/CMM (10/12/17 4:05 AM) 7.5 K/CMM (10/11/17 12:32 PM) 7.7 K/CMM (10/10/17 12:29 PM) WBC [3.7-10.4 K/CMM] 4.10 M/CMM *LOW* (10/12/17 4:05 AM) 4.33 M/CMM (10/11/17 12:32 PM) 4.71 M/CMM (10/10/17 12:29 PM) RBC [4.20-5.40 M/CMM] 12.7 g/dL (10/12/17 4:05 AM) 13.1 g/dL (10/11/17 12:32 PM) 14.7 g/dL (10/10/17 12:29 PM) Hgb [12.0-16.0 g/dL] 37.8 % (10/12/17 4:05 AM) 39.4 % (10/11/17 12:32 PM) 43.1 % (10/10/17 12:29 PM) Hct [36.0-48.0 %] 92.2 fL (10/12/17 4:05 AM) 91.0 fL (10/11/17 12:32 PM) 91.5 fL (10/10/17 12:29 PM) MCV [80.0-98.0 fL] 31.0 pg (10/12/17 4:05 AM) 30.3 pg (10/11/17 12:32 PM) 31.2 pg *HI* (10/10/17 12:29 PM) MCH [27.0-31.0 pg] 33.6 g/dL (10/12/17 4:05 AM) 33.3 g/dL (10/11/17 12:32 PM) 34.1 g/dL (10/10/17 12:29 PM) MCHC [32.0-36.0 g/dL] 14.5 % (10/12/17 4:05 AM) 14.2 % (10/11/17 12:32 PM) 14.4 % (10/10/17 12:29 PM) RDW [11.5-14.5 %] 161 K/CMM (10/12/17 4:05 AM) 188 K/CMM (10/11/17 12:32 PM) 207 K/CMM (10/10/17 12:29 PM) Platelet [133-450 K/CMM] 10.0 fL (10/12/17 4:05 AM) 9.9 fL (10/11/17 12:32 PM) 9.9 fL (10/10/17 12:29 PM) MPV [7.4-10.4 fL] 54.1 % (10/12/17 4:05 AM) 68.2 % (10/11/17 12:32 PM) 68.5 % (10/10/17 12:29 PM) Segs [45.0-75.0 %] 32.9 % (10/12/17 4:05 AM) 20.7 % (10/11/17 12:32 PM) 20.1 % (10/10/17 12:29 PM) Lymphocytes [20.0-40.0 %] 8.4 % (10/12/17 4:05 AM) 7.8 % (10/11/17 12:32 PM) 9.2 % (10/10/17 12:29 PM) Monocytes [2.0-12.0 %] 3.7 % (10/12/17 4:05 AM) 2.5 % (10/11/17 12:32 PM) 1.2 % (10/10/17 12:29 PM) Eosinophils [0.0-4.0 %] 0.9 % (10/12/17 4:05 AM) 0.8 % (10/11/17 12:32 PM) 1.0 % (10/10/17 12:29 PM) Basophils [0.0-1.0 %] 3.3 K/CMM (10/12/17 4:05 AM) 5.1 K/CMM (10/11/17 12:32 PM) 5.3 K/CMM (10/10/17 12:29 PM) Segs-Bands # [1.5-8.1 K/CMM] 2.0 K/CMM (10/12/17 4:05 AM) 1.5 K/CMM (10/11/17 12:32 PM) 1.6 K/CMM (10/10/17 12:29 PM) Lymphocytes # [1.0-5.5 K/CMM] 0.5 K/CMM (10/12/17 4:05 AM) 0.6 K/CMM (10/11/17 12:32 PM) 0.7 K/CMM (10/10/17 12:29 PM) Monocytes # [0.0-0.8 K/CMM] 0.2 K/CMM (10/12/17 4:05 AM) 0.2 K/CMM (10/11/17 12:32 PM) 0.1 K/CMM (10/10/17 12:29 PM) Eosinophils # [0.0-0.5 K/CMM] 0.1 K/CMM (10/12/17 4:05 AM) 0.1 K/CMM (10/11/17 12:32 PM) 0.1 K/CMM (10/10/17 12:29 PM) Basophils # [0.0-0.2 K/CMM] 23.2 seconds *HI* (10/12/17 4:05 AM) 22.2 seconds *HI* (10/11/17 12:32 PM) 22.1 seconds *HI* (10/11/17 8:06 AM) PT [12.0-14.7 seconds] 2.04 *HI* (10/12/17 4:05 AM) 1.93 *HI* (10/11/17 12:32 PM) 1.91 *HI* (10/11/17 8:06 AM) INR [0.85-1.17] 78.8 seconds *HI* (10/12/17 11:01 AM) 98.2 seconds *HI* (10/12/17 4:05 AM) 85.7 seconds *HI* (10/11/17 8:04 PM) PTT [22.9-35.8 seconds] Immunizations Given and Recorded Vaccine Date Status Refusal Reason influenza virus vaccine, inactivated 07/27/15 Given influenza virus vaccine, inactivated 10/01/12 Given pneumococcal 23-valent vaccine 07/27/15 Given Procedures Procedure Date Related Diagnosis Body Site Cardiac pacemaker procedure Mitral valve operation Open heart surgery Social History Social History Type Response Substance Abuse Use: None. Alcohol Never Smoking Status Never smoker; Type: Cigarettes; Ready to change: No; Concerns about tobacco use in household: No; Exposure to Tobacco Smoke None; Cigarette Smoking Last 365 Days No; Reg Smoking Cessation Counseling No; Stopped at age: 28; Assessment and Plan Extracted from: Title: Clinical Document Author: Denise Frazier MD Date: 10/12/17 Discharge Summary Admission Diagnosis: Atrial flutter Discharge Diagnosis: Atrial flutter Comorbid Conditions: 1. Mechanical mitral valve replacement 2. Status post PPM Procedures: 1. DC cardioversion Hospital Course: 32 year-old woman with history as above who was admitted for Tikosyn initiation after scheduled DC cardioversion for atrial flutter. Tikosyn was initiated per protocol with the guidance of EP and EKG monitoring was performed after every dose. The patient was discharged home in stable condition after Tikosyn initiation was complete. Diet: Heart healthy, low sodium diet. Activity: As tolerated. Follow-up: 1. Cardiology. 2. Primary care. Medications: Please see medication reconciliation. Physical Exam: Vitals reviewed. General: Awake and alert. No acute distress. Lungs: Clear to auscultation bilaterally. No wheezes/crackles. CV: Normal rate. Regular rhythm. Systolic murmur 2/6. Mechanical S1 crisp. Abd: Soft. Ext: No edema. Telemetry: A-paced Extracted from: Title: Cardiology Progress Note Author: Denise Frazier MD Date: 10/11/17 Impression and Plan 1. Atrial flutter status post DC cardioversion 2. Mechanical mitral valve replacement 3. Status post PPM Plan: 1. Heparin drip while INR subtherapeutic. Continue Warfarin current dose. 2. Monitor ECG/QTc Q12 hour. Appreciate EP assistance. 3. Continue medications without changes. Extracted from: Title: Cardiovascular Admission H&P Author: Neal Roberts MD Date: 10/10/17 * Impression and Plan Aflutter S/P DC cardioversion - admit as inpatient for intitiation of Tikosyn. EP consult, will follow Qtc with Q 12 hour ECG
--- OUTSIDE RECORDS SUMMARY | 2018-12-29 07:28 | XMS REPORT | Summary of Care ---
Author Author [facility] Organization [facility] Address Unknown Phone Unavailable Encounter CAMERON Prater(SHAUNA) [id number] Date(s): 02/17/18 - 02/17/18 [facility] [address], [address] [place], [place] [address] Discharge Disposition: Home or Self Care Attending Physician: Yared Villalta MD Referring Physician: Yared Villalta MD Vital Signs Most recent to 1 oldest [Reference Range]: Height 167.39 cm (02/17/18 9:35 AM) Temperature Oral 97.8 DegF [96.4-99.1 DegF] (02/17/18 9:35 AM) Blood Pressure 130/80 mmHg [90-140/60-90 mmHg] (02/17/18 9:35 AM) Respiratory Rate 16 BRMIN [14-20 BRMIN] (02/17/18 9:35 AM) Peripheral Pulse 86 bpm Rate [60-100 bpm] (02/17/18 9:35 AM) Weight 77.301 kg (02/17/18 9:35 AM) Body Mass Index 27.59 m2 (02/17/18 9:35 AM) Problem List Condition Effective Dates Status [...] No data available for this section Results No data available for this section [...]
--- OUTSIDE RECORDS SUMMARY | 2018-12-29 07:28 | XMS REPORT | Summary of Care ---
Author Author [facility] Organization [facility] Address Unknown Phone Unavailable Encounter CAMERON Prater(SHAUNA) [id number] Date(s): 07/26/15 - 07/27/15 [facility] [address] [employer] provided by [facility] [place] [address]- Final: Discharge Disposition: Home Attending Physician: Ivonne Magaña MD Admitting Physician: Ivonne Magaña MD Referring Physician: Ivonne Magaña MD Vital Signs 1 2 3 Most recent to oldest [Reference Range]: 167.64 cm (07/26/15 10:30 AM) Height 1 2 3 Most recent to oldest [Reference Range]: 98.2 DegF (07/27/15 12:00 PM) 98.4 DegF (07/27/15 8:00 AM) 98.6 DegF (07/27/15 5:00 AM) Temperature Oral [96.4-99.1 DegF] 1 2 3 Most recent to oldest [Reference Range]: 127/60 mmHg (07/27/15 2:45 PM) 130/61 mmHg (07/27/15 1:00 PM) 117/57 mmHg (07/27/15 12:00 PM) Blood Pressure [90-140/60-90 mmHg] 1 2 3 Most recent to oldest [Reference Range]: 18 BRMIN (07/26/15 9:30 PM) 19 BRMIN (07/26/15 9:15 PM) 18 BRMIN (07/26/15 8:39 PM) Respiratory Rate [14-20 BRMIN] 1 2 3 Most recent to oldest [Reference Range]: 80.625 kg (07/26/15 10:30 AM) Weight 1 2 3 Most recent to oldest [Reference Range]: 28.69 m2 (07/26/15 10:30 AM) Body Mass Index Problem List Condition [...] Medications atenolol 100 mg oral tablet 100 mg, 2 tab, Route: PO, Drug form: TAB, Daily, Dosing Weight 80.625, kg, Start date: 07/27/15 9:00:00, Duration: 30 day, Stop date: 08/25/15 9:00:00 Notes: (Same As:Tenormin) Start Date: 07/27/15 Stop Date: 07/27/15 Status: Discontinued ceFAZolin 2 gm, Route: IVPB, ONCE, Dosing Weight 80.625, kg, Start date: 07/26/15 16:15:00 , Stop date: 07/26/15 16:15:00 Start Date: 07/26/15 Stop Date: 07/26/15 Status: Discontinued ceFAZolin 2 gm, Route: IVPB, ONCE, Dosing Weight 80.625, kg, Start date: 07/26/15 16:14:00 , Stop date: 07/26/15 16:14:00 Start Date: 07/26/15 Stop Date: 07/26/15 Status: Completed ceFAZolin 2 gm, 100 mL, Route: IVPB, Drug form: INJ, [id number], Dosing Weight 80.625, kg, Sta rt date: 07/26/15 21:00:00, Duration: 30 day, Stop date: 08/25/15 13:00:00 Notes: Same as: Ancef Start Date: 07/26/15 Stop Date: 07/27/15 Status: Discontinued Coumadin 2 mg, 1 tab, Route: PO, Drug form: TAB, Q5PM, Start date: 07/27/15 17:00:00, Dur ation: 1 doses or times, Stop date: 07/27/15 17:00:00 Notes: Nurse to ensure documentation of patient education per anticoagulation po licy.Avoid large intake of vitamin-K containing foods diet.(Same As: Coumadin) Start Date: 07/27/15 Stop Date: 07/27/15 Status: Completed Coumadin 12 mg, 2 tab, Route: PO, Drug form: TAB, Q5PM, Dosing Weight 80.625, kg, Start d ate: 07/27/15 17:00:00, Duration: 30 day, Stop date: 08/25/15 17:00:00 Notes: Nurse to ensure documentation of patient education per anticoagulation po licy.Avoid large intake of vitamin-K containing foods diet.(Same As: Coumadin) Start Date: 07/27/15 Stop Date: 07/27/15 Status: Deleted Coumadin 10 mg, 1 tab, Route: PO, Drug form: TAB, Q5PM, Start date: 07/27/15 17:00:00, Du ration: 1 doses or times, Stop date: 07/27/15 17:00:00 Notes: Nurse to ensure documentation of patient education per anticoagulation po licy.Avoid large intake of vitamin-K containing foods diet.(Same As: Coumadin) Start Date: 07/27/15 Stop Date: 07/27/15 Status: Completed hydrALAZINE 10 mg, 0.5 mL, Route: IVP, Drug form: INJ, Q20Min, Dosing Weight 80.625, kg, PRN Elevated BP, Start date: 07/26/15 18:20:00, Duration: 2 doses or times, Stop da te: Limited # of times Notes: (Same as: Apresoline)Push over 5 minutes Start Date: 07/26/15 Stop Date: 07/27/15 Status: Discontinued hydromorphone 0.5 mg, 0.25 mL, Route: IVP, Drug form: INJ, Q5Min, Dosing Weight 80.625, kg, MA N Pain Score 7-10, Start date: 07/26/15 18:20:00, Duration: 4 doses or times, St op date: Limited # of times Notes: Same as: Dilaudid Start Date: 07/26/15 Stop Date: 07/27/15 Status: Discontinued influenza virus vaccine, inactivated 0.5 mL, Route: IM, Drug Form: SUSP, Daily, Start date: 07/27/15 15:00:00, Durati on: 1 doses or times, Stop date: 07/27/15 15:00:00 Notes: (Same as: Fluzone Quadrivalent)For 3 years of age and older (0.5 mL IM)Sh destiny well before use Start Date: 07/27/15 Stop Date: 07/27/15 Status: Completed labetalol 10 mg, 2 mL, Route: IVP, Drug form: INJ, Q5Min, Dosing Weight 80.625, kg, PRN El evated BP, Start date: 07/26/15 18:20:00, Duration: 5 doses or times, Stop date: Limited # of times Start Date: 07/26/15 Stop Date: 07/27/15 Status: Discontinued Mag-Ox 400 400 mg, 1 tab, Route: PO, Drug form: TAB, ONCE, Dosing Weight 80.625, kg, Start date: 07/27/15 10:00:00, Stop date: 07/27/15 10:00:00 Notes: (Same as: Mag-Ox 400)Magnesium oxide [id number] elemental magnesiumDose= ____mg magnesium oxide (___mg elemental magnesium) Start Date: 07/27/15 Stop Date: 07/27/15 Status: Completed minocycline 100 mg oral capsule 100 mg=1 cap, PO, Q12H, X 7 day, # 14 cap, 0 Refill(s) Start Date: 07/27/15 Stop Date: 08/03/15 Status: Ordered morphine Sulfate 2 mg, 1 mL, Route: IVP, Drug form: INJ, Q2H, Dosing Weight 80.625, kg, PRN Pain Score 7-10, Start date: 07/26/15 20:56:00, Duration: 30 day, Stop date: 08/25/15 20:55:00 Notes: (Same as:MORPhine Sulfate) Start Date: 07/26/15 Stop Date: 07/27/15 Status: Discontinued ondansetron 4 mg, 2 mL, Route: IVP, Drug form: INJ, ONCE, Dosing Weight 80.625, kg, PRN Naus ea & Vomiting, Start date: 07/26/15 18:20:00 Notes: (Same as: Giana) MEDICATION WASTE Product Size: 4 mgProduct Was judah: ___ mg Start Date: 07/26/15 Stop Date: 07/27/15 Status: Discontinued ondansetron 4 mg, 2 mL, Route: IVP, Drug form: INJ, Q6H, Dosing Weight 80.625, kg, PRN Nause a & Vomiting, Start date: 07/26/15 22:49:00, Duration: 30 day, Stop date: 08/25/15 22:48:00 Notes: (Same as: Giana) MEDICATION WASTE Product Size: 4 mgProduct Was judah: ___ mg Start Date: 07/26/15 Stop Date: 07/27/15 Status: Discontinued pneumococcal 23-valent vaccine 0.5 mL, Route: IM, Drug Form: INJ, Daily, Start date: 07/27/15 9:00:00, Duration : 1 doses or times, Stop date: 07/27/15 9:00:00 Notes: (Same as: Pneumovax 23) Refrigerate Start Date: 07/27/15 Stop Date: 07/27/15 Status: Deleted Pneumovax 23 0.5 mL, Route: IM, Drug Form: INJ, Daily, Start date: 07/27/15 11:00:00, Duratio n: 1 doses or times, Stop date: 07/27/15 11:00:00 Notes: (Same as: Pneumovax 23) Refrigerate Start Date: 07/27/15 Stop Date: 07/27/15 Status: Completed potassium chloride 20 mEq oral tablet, extended release 20 mEq, 1 tab, Route: PO, Drug form: ERTAB, ONCE, Dosing Weight 80.625, kg, Star t date: 07/27/15 10:00:00, Stop date: 07/27/15 10:00:00 Notes: (Same as: K-Dur 20)"Do Not Crush" With food and full glass of water Start Date: 07/27/15 Stop Date: 07/27/15 Status: Completed Tylenol with Codeine #3 oral tablet 1 tab, Route: PO, Drug Form: TAB, Dosing Weight 80.625, kg, Q4H, PRN Pain Score 1-3, Start date: 07/26/15 20:56:00, Duration: 30 day, Stop date: 08/25/15 20:55: 00 Notes: Do not exceed 4gm/day of acetaminophen. (Same as: Tylenol with Codeine # 3) Start Date: 07/26/15 Stop Date: 07/27/15 Status: Discontinued Tylenol with Codeine #3 oral tablet 1 tab, PO, Q4H, PRN Pain Score 1-3, X 5 day, # 30 tab, 0 Refill(s) Start Date: 07/27/15 Stop Date: 08/01/15 Status: Ordered Results BLOOD BANK RESULTS Most recent to 1 2 oldest [Reference Range]: ABO/Rh CR *Unknown* (07/26/15 10:44 AM) Antibody Scrn CR (07/26/15 10:44 AM) ELECTROLYTES Most recent to 1 2 oldest [Reference Range]: Sodium Lvl [135-145 141 mEq/L 138 mEq/L mEq/L] (07/27/15 4:47 AM) (07/26/15 10:44 AM) Potassium Lvl 3.5 mEq/L 4.3 mEq/L [3.5-5.1 mEq/L] (07/27/15 4:47 AM) (07/26/15 10:44 AM) Chloride Lvl [95-109 109 mEq/L 103 mEq/L mEq/L] (07/27/15 4:47 AM) (07/26/15 10:44 AM) CO2 [24-32 mEq/L] 26 mEq/L 24 mEq/L (07/27/15 4:47 AM) (07/26/15 10:44 AM) AGAP [10.0-20.0 9.5 mEq/L 15.3 mEq/L mEq/L] *LOW* (07/26/15 10:44 AM) (07/27/15 4:47 AM) CHEM PANEL Most recent to 1 2 oldest [Reference Range]: Creatinine Lvl 0.6 mg/dL 0.7 mg/dL [0.5-1.4 mg/dL] (07/27/15 4:47 AM) (07/26/15 10:44 AM) eGFR 122 mL/min/1.73m2 1 116 mL/min/1.73m2 2 *NA* *NA* (07/27/15 4:47 AM) (07/26/15 10:44 AM) BUN [7-22 mg/dL] 7 mg/dL 11 mg/dL (07/27/15 4:47 AM) (07/26/15 10:44 AM) B/C Ratio [6-25] 16 (07/26/15 10:44 AM) Glucose Lvl [70-99 94 mg/dL 85 mg/dL mg/dL] (07/27/15 4:47 AM) (07/26/15 10:44 AM) Total Protein 8.2 g/dL [6.4-8.4 g/dL] (07/26/15 10:44 AM) Albumin Lvl [3.5-5.0 4.1 g/dL g/dL] (07/26/15 10:44 AM) Globulin [2.0-4.0 4.1 g/dL g/dL] *HI* (07/26/15 10:44 AM) A/G Ratio [0.7-1.6] 1.0 (07/26/15 10:44 AM) Calcium Lvl 7.4 mg/dL 8.6 mg/dL [8.5-10.5 mg/dL] *LOW* (07/26/15 10:44 AM) (07/27/15 4:47 AM) Phosphorus [2.5-4.5 2.3 mg/dL mg/dL] *LOW* (07/27/15 4:47 AM) Magnesium Lvl 1.8 mg/dL [1.8-2.4 mg/dL] (07/27/15 4:47 AM) ALT [0-65 unit/L] 20 unit/L (07/26/15 10:44 AM) AST [0-37 unit/L] 32 unit/L (07/26/15 10:44 AM) Alk Phos [39-136 68 unit/L unit/L] (07/26/15 10:44 AM) Bili Total [0.2-1.3 0.6 mg/dL mg/dL] (07/26/15 10:44 AM) 1Result Comment: The eGFR is calculated [...] be mul tiplied by the estimated BMI. HEMATOLOGY Most recent to 1 2 oldest [Reference Range]: WBC [3.7-10.4 K/CMM] 9.3 K/CMM 7.2 K/CMM (07/27/15 4:47 AM) (07/26/15 10:44 AM) RBC [4.20-5.40 3.99 M/CMM 4.97 M/CMM M/CMM] *LOW* (07/26/15 10:44 AM) (07/27/15 4:47 AM) Hgb [12.0-16.0 g/dL] 12.3 g/dL 3 15.4 g/dL (07/27/15 4:47 AM) (07/26/15 10:44 AM) Hct [36.0-48.0 %] 37.8 % 46.8 % (07/27/15 4:47 AM) (07/26/15 10:44 AM) MCV [80.0-98.0 fL] 94.8 fL 94.1 fL (07/27/15 4:47 AM) (07/26/15 10:44 AM) MCH [27.0-31.0 pg] 30.9 pg 31.0 pg (07/27/15 4:47 AM) (07/26/15 10:44 AM) MCHC [32.0-36.0 32.6 g/dL 33.0 g/dL g/dL] (07/27/15 4:47 AM) (07/26/15 10:44 AM) RDW [11.5-14.5 %] 13.1 % 13.2 % (07/27/15 4:47 AM) (07/26/15 10:44 AM) Platelet [133-450 158 K/CMM 215 K/CMM K/CMM] (07/27/15 4:47 AM) (07/26/15 10:44 AM) MPV [7.4-10.4 fL] 9.6 fL 9.8 fL (07/27/15 4:47 AM) (07/26/15 10:44 AM) Segs [45.0-75.0 %] 76.0 % 67.6 % *HI* (07/26/15 10:44 AM) (07/27/15 4:47 AM) Lymphocytes 12.6 % 21.1 % [20.0-40.0 %] *LOW* (07/26/15 10:44 AM) (07/27/15 4:47 AM) Monocytes [2.0-12.0 9.6 % 8.2 % %] (07/27/15 4:47 AM) (07/26/15 10:44 AM) Eosinophils [0.0-4.0 1.0 % 2.2 % %] (07/27/15 4:47 AM) (07/26/15 10:44 AM) Basophils [0.0-1.0 0.8 % 0.9 % %] (07/27/15 4:47 AM) (07/26/15 10:44 AM) Segs-Bands # 7.1 K/CMM 4.9 K/CMM [1.5-8.1 K/CMM] (07/27/15 4:47 AM) (07/26/15 10:44 AM) Lymphocytes # 1.2 K/CMM 1.5 K/CMM [1.0-5.5 K/CMM] (07/27/15 4:47 AM) (07/26/15 10:44 AM) Monocytes # [0.0-0.8 0.9 K/CMM 0.6 K/CMM K/CMM] *HI* (07/26/15 10:44 AM) (07/27/15 4:47 AM) Eosinophils # 0.1 K/CMM 0.2 K/CMM [0.0-0.5 K/CMM] (07/27/15 4:47 AM) (07/26/15 10:44 AM) Basophils # [0.0-0.2 0.1 K/CMM 0.1 K/CMM K/CMM] (07/27/15 4:47 AM) (07/26/15 10:44 AM) PT [12.0-14.7 29.1 seconds 26.0 seconds seconds] *HI* *HI* (07/27/15 4:47 AM) (07/26/15 10:44 AM) INR [0.85-1.17] 2.71 2.34 *HI* *HI* (07/27/15 4:47 AM) (07/26/15 10:44 AM) PTT [22.9-35.8 45.0 seconds 43.6 seconds seconds] *HI* *HI* (07/27/15 4:47 AM) (07/26/15 10:44 AM) 3Result Comment: rechecked Immunizations Vaccine Date Refusal Reason influenza virus vaccine, inactivated 07/27/15 influenza virus vaccine, inactivated 10/01/12 pneumococcal 23-valent vaccine 07/27/15 Procedures Procedure Date Related Diagnosis Body Site Cardiac pacemaker procedure Mitral valve operation Social History Social History Type Response Substance Abuse Use: None. Alcohol Never Smoking Status Never smoker; Type: Cigarettes; Stopped at age: 28; Exposure to Tobacco Smoke None; Cigarette Smoking Last 365 Days No; Reg Smoking Cessation Counseling No Assessment and Plan No data available for this section
--- OUTSIDE RECORDS SUMMARY | 2018-12-29 07:28 | XMS REPORT | Summary of Care ---
Author Organization Unknown Address Unknown Phone Unavailable Encounter CAMERON Prater(SHAUNA) [id number] Date(s): 08/09/14 - 08/09/14 [facility] [address] [address] Discharge Diagnosis: Heart palpitations Discharge Disposition: Home Physician Attending: Supriya Carrillo MD Reason for Visit ANXIETY Vital Signs Most recent to 1 2 oldest [Reference Range]: Height 170.18 cm (08/09/14 1:26 PM) Temperature Oral 97.5 DegF 97.6 DegF [96.4-99.1 DegF] (08/09/14 4:15 PM) (08/09/14 1:26 PM) Systolic Blood 112 mmHg 139 mmHg Pressure [90-140 (08/09/14 4:15 PM) (08/09/14 1:26 PM) mmHg] Diastolic Blood 64 mmHg 90 mmHg Pressure [60-90 (08/09/14 4:15 PM) (08/09/14 1:26 PM) mmHg] Respiratory Rate 16 BRMIN 20 BRMIN [14-20 BRMIN] (08/09/14 4:15 PM) (08/09/14 1:26 PM) Peripheral Pulse 76 bpm 110 bpm Rate [60-100 bpm] (08/09/14 4:15 PM) *HI* (08/09/14 1:26 PM) Weight 75.909 kg (08/09/14 1:26 PM) Body Mass Index 26.21 m2 (08/09/14 1:26 PM) Problem List Condition Effective Dates Status [...] Range]: Sodium Lvl [135-145 139 mEq/L mEq/L] (08/09/14 2:50 PM) Potassium Lvl 3.8 mEq/L [3.5-5.1 mEq/L] (08/09/14 2:50 PM) Chloride Lvl [95-109 107 mEq/L mEq/L] (08/09/14 2:50 PM) CO2 [24-32 mEq/L] 27 mEq/L (08/09/14 2:50 PM) AGAP [10.0-20.0 8.8 mEq/L mEq/L] *LOW* (08/09/14 2:50 PM) CHEM PANEL Most recent to 1 oldest [Reference Range]: Creatinine Lvl 0.8 mg/dL [0.5-1.4 mg/dL] (08/09/14 2:50 PM) eGFR 99 mL/min/1.73m2 1 *NA* (08/09/14 2:50 PM) BUN [7-22 mg/dL] 13 mg/dL (08/09/14 2:50 PM) B/C Ratio [6-25] 16 (08/09/14 2:50 PM) Glucose Lvl [70-99 87 mg/dL 2 mg/dL] (08/09/14 2:50 PM) Total Protein 8.0 g/dL [6.4-8.4 g/dL] (08/09/14 2:50 PM) Albumin Lvl [3.5-5.0 4.1 g/dL g/dL] (08/09/14 2:50 PM) Globulin [2.0-4.0 3.9 g/dL g/dL] (08/09/14 2:50 PM) A/G Ratio [0.7-1.6] 1.1 (08/09/14 2:50 PM) Calcium Lvl 8.8 mg/dL [8.5-10.5 mg/dL] (08/09/14 2:50 PM) ALT [0-65 unit/L] 39 unit/L (08/09/14 2:50 PM) AST [0-37 unit/L] 45 unit/L *HI* (08/09/14 2:50 PM) Alk Phos [39-136 78 unit/L unit/L] (08/09/14 2:50 PM) Bili Total [0.2-1.3 0.7 mg/dL mg/dL] (08/09/14 2:50 PM) 1Result Comment: The eGFR is calculated [...] values reflect the clinical guidelines of the [place] [employer]. CARDIAC ENZYMES Most recent to 1 oldest [Reference Range]: Total CK [12-191 349 unit/L unit/L] *HI* (08/09/14 2:50 PM) CK MB [0.5-3.6 3.7 ng/mL ng/mL] *HI* (08/09/14 2:50 PM) CK MB Index 1.1 [0.0-2.5] (08/09/14 2:50 PM) Troponin-I <0.02 ng/mL [0.00-0.40 ng/mL] (08/09/14 2:50 PM) URINE CHEM Most recent to 1 oldest [Reference Range]: U Preg [Negative] Negative (08/09/14 2:35 PM) URINE AND STOOL Most recent to 1 oldest [Reference Range]: UA Turbidity [Clear] Clear (08/09/14 2:35 PM) UA Color Ltyellow *NA* (08/09/14 2:35 PM) UA pH [5.0-8.0] 6.0 (08/09/14 2:35 PM) UA Spec Grav 1.001 [<=1.030] (08/09/14 2:35 PM) UA Glucose [Negative Negative mg/dL mg/dL] *NA* (08/09/14 2:35 PM) UA Blood [Negative] Negative (08/09/14 2:35 PM) UA Ketones [Negative Negative mg/dL mg/dL] *NA* (08/09/14 2:35 PM) UA Protein [Negative Negative mg/dL mg/dL] (08/09/14 2:35 PM) UA Urobilinogen <=1.0 mg/dL [0.1-1.0 mg/dL] *NA* (08/09/14 2:35 PM) UA Bili [Negative] Negative *NA* (08/09/14 2:35 PM) UA Leuk Est Negative [Negative] (08/09/14 2:35 PM) UA Nitrite Negative [Negative] (08/09/14 2:35 PM) UA RBC [0-2 /HPF] 1 /HPF (08/09/14 2:35 PM) UA Sq Epi None Seen *NA* (08/09/14 2:35 PM) HEMATOLOGY Most recent to 1 oldest [Reference Range]: WBC [3.7-10.4 K/CMM] 7.8 K/CMM (08/09/14 2:50 PM) RBC [4.20-5.40 4.66 M/CMM M/CMM] (08/09/14 2:50 PM) Hgb [12.0-16.0 g/dL] 14.6 g/dL (08/09/14 2:50 PM) Hct [36.0-48.0 %] 43.4 % (08/09/14 2:50 PM) MCV [80.0-98.0 fL] 93.1 fL (08/09/14 2:50 PM) MCH [27.0-31.0 pg] 31.4 pg *HI* (08/09/14 2:50 PM) MCHC [32.0-36.0 33.7 g/dL g/dL] (08/09/14 2:50 PM) RDW [11.5-14.5 %] 14.2 % (08/09/14 2:50 PM) Platelet [133-450 219 K/CMM K/CMM] (08/09/14 2:50 PM) MPV [7.4-10.4 fL] 9.8 fL (08/09/14 2:50 PM) Segs [45.0-75.0 %] 71.0 % (08/09/14 2:50 PM) Lymphocytes 17.4 % [20.0-40.0 %] *LOW* (08/09/14 2:50 PM) Monocytes [2.0-12.0 8.9 % %] (08/09/14 2:50 PM) Eosinophils [0.0-4.0 1.5 % %] (08/09/14 2:50 PM) Basophils [0.0-1.0 1.2 % %] *HI* (08/09/14 2:50 PM) Segs-Bands # 5.5 K/CMM [1.5-8.1 K/CMM] (08/09/14 2:50 PM) Lymphocytes # 1.4 K/CMM [1.0-5.5 K/CMM] (08/09/14 2:50 PM) Monocytes # [0.0-0.8 0.7 K/CMM K/CMM] (08/09/14 2:50 PM) Eosinophils # 0.1 K/CMM [0.0-0.5 K/CMM] (08/09/14 2:50 PM) Basophils # [0.0-0.2 0.1 K/CMM K/CMM] (08/09/14 2:50 PM) PT [12.0-14.7 27.1 seconds seconds] *HI* (08/09/14 2:50 PM) INR [0.85-1.17] 2.42 3 *HI* (08/09/14 2:50 PM) PTT [22.9-35.8 51.3 seconds 4 seconds] *HI* (08/09/14 2:50 PM) 3Interpretive Data: RECOMMENDED RANGES FOR PROTIME [...] influenza virus vaccine, inactivated 10/01/12 Procedures Procedure Type Body Site Date of Procedure Related Diagnosis Mitral valve operation Social History Social History Type Response
--- OUTSIDE RECORDS SUMMARY | 2018-12-29 07:28 | XMS REPORT | Summary of Care ---
Author Author [facility] Organization [facility] Address Unknown Phone Unavailable Encounter CAMERON Prater(SHAUNA) [id number] Date(s): 09/01/17 - 09/02/17 [facility] [address] [employer] provided by [facility] [employer] [facility] [place] [address]- Discharge Disposition: Home or Self Care Attending Physician: Ivonne Magaña MD Admitting Physician: Ivonne Magaña MD Referring Physician: Ivonne Magaña MD Vital Signs 1 2 3 Most recent to oldest [Reference Range]: 167.64 cm (09/01/17 5:59 AM) Height 98.8 DegF (09/02/17 1:50 AM) 99.8 DegF *HI* (09/01/17 6:45 PM) Temperature Oral [96.4-99.1 DegF] 112/55 mmHg (09/02/17 6:45 AM) 108/54 mmHg (09/02/17 5:00 AM) 108/56 mmHg (09/02/17 1:50 AM) Blood Pressure [90-140/60-90 mmHg] 20 BRMIN (09/01/17 5:45 PM) 19 BRMIN (09/01/17 5:30 PM) 20 BRMIN (09/01/17 5:15 PM) Respiratory Rate [14-20 BRMIN] 80.909 kg (09/01/17 5:59 AM) Weight 28.79 m2 (09/01/17 5:59 AM) Body Mass Index Problem List Condition Effective Dates Status Health Status Informant AF - Atrial Active fibrillation(Confirm ed) Cardiac Active pacemaker(Confirmed) Mitral valve Resolved disease(Confirmed) Mitral valve Active disease(Confirmed) MVR - Mitral valve Active replacement(Confirme d) Pacemaker(Confirmed) Active Palpitations(Confirm Active ed) Palpitations(Confirm Active ed) SVT - Active Supraventricular tachycardia(Confirme d) Allergies, Adverse Reactions, Alerts Substance Reaction Severity Status NKDA Active Medications 0 (ANES) Route: IV, Drug form: SOLN, ONCE, Stop date: 09/01/17 9:16:00 CDT Start Date: 09/01/17 Stop Date: 09/01/17 Status: Completed 0 (ANES) Route: IV, Drug form: INJ, ONCE, Stop date: 09/01/17 9:16:00 CDT Start Date: 09/01/17 Stop Date: 09/01/17 Status: Completed 0 (ANES) Route: IV, Drug form: INJ, ONCE, Stop date: 09/01/17 9:16:00 CDT Start Date: 09/01/17 Stop Date: 09/01/17 Status: Completed 0 (ANES) Route: IV, Drug form: INJ, ONCE, Stop date: 09/01/17 14:02:00 CDT Start Date: 09/01/17 Stop Date: 09/01/17 Status: Completed 0 (ANES) Route: IV, Drug form: INJ, ONCE, Stop date: 09/01/17 14:02:00 CDT Start Date: 09/01/17 Stop Date: 09/01/17 Status: Completed 0 (ANES) Route: IV, Drug form: INJ, ONCE, Stop date: 09/01/17 10:56:00 CDT Start Date: 09/01/17 Stop Date: 09/01/17 Status: Completed 0 (ANES) Route: IV, Drug form: INJ, ONCE, Stop date: 09/01/17 9:16:00 CDT Start Date: 09/01/17 Stop Date: 09/01/17 Status: Completed 0 (ANES) Route: IV, Drug form: INJ, ONCE, Stop date: 09/01/17 12:26:00 CDT Start Date: 09/01/17 Stop Date: 09/01/17 Status: Completed 0 (ANES) Route: IV, Drug form: INJ, ONCE, Stop date: 09/01/17 14:02:00 CDT Start Date: 09/01/17 Stop Date: 09/01/17 Status: Completed acetaminophen-codeine 300 mg-30 mg oral tablet 1 tab, PO, Q6H, PRN pain, X 7 day, # 28 tab, 0 Refill(s) Start Date: 09/02/17 Stop Date: 09/09/17 Status: Ordered ANES acetaminophen 1,000 mg, 100 mL, Route: IVPB, Drug form: INJ, ONCE, Dosing Weight 80.909, kg, P RN Pain Score 1-3, Start date: 09/01/17 9:25:00 CDT, Duration: 1 doses or times, Stop date: Limited # of times Notes: Infuse over 15 minutesDo not exceed 4gm/day of acetaminophen MEDICAT ION WASTE Product Size: 1000 mgProduct Wasted: ___ mg Start Date: 09/01/17 Stop Date: 09/02/17 Status: Discontinued ANES fentaNYL 25 microgram, 0.5 mL, Route: IVP, Drug form: INJ, Q5Min, Dosing Weight 80.909, k g, PRN Pain Score 4-6, Priority: Routine, Start date: 09/01/17 9:25:00 CDT, Dura tion: 4 doses or times, Stop date: 09/01/17 17:00:00 CDT Notes: (Same as: Sublimaze) Preservative free. Start Date: 09/01/17 Stop Date: 09/01/17 Status: Completed ANES flumazenil 0.2 mg, 2 mL, Route: IVP, Drug form: INJ, PRN, Dosing Weight 80.909, kg, PRN Jose De Jesus zodiazepine Reversal, Initial dose, Start date: 09/01/17 9:25:00 CDT, Duration: 30 day, Stop date: 10/01/17 8:24:00 [employer] Notes: (Same as: Romazicon) Start Date: 09/01/17 Stop Date: 09/02/17 Status: Discontinued ANES labetalol 10 mg, 2 mL, Route: IVP, Drug form: INJ, Q5Min, Dosing Weight 80.909, kg, PRN El evated BP, Start date: 09/01/17 9:25:00 CDT, Duration: 5 doses or times, Stop da te: 09/01/17 17:00:00 CDT Start Date: 09/01/17 Stop Date: 09/01/17 Status: Completed ANES naloxone 0.4 mg, 1 mL, Route: IVP, Drug form: INJ, Q2MIN, Dosing Weight 80.909, kg, PRN N arcotic Reversal, Start date: 09/01/17 9:25:00 CDT, Duration: 8 doses or times, Stop date: 09/01/17 17:00:00 CDT Notes: (Same as: Narcan) Start Date: 09/01/17 Stop Date: 09/01/17 Status: Completed ANES ondansetron 4 mg, 2 mL, Route: IVP, Drug form: INJ, ONCE, Dosing Weight 80.909, kg, PRN Naus ea & Vomiting, Start date: 09/01/17 9:25:00 CDT Notes: (Same as: Giana) MEDICATION WASTE Product Size: 4 mgProduct Was judah: ___ mg Start Date: 09/01/17 Stop Date: 09/02/17 Status: Discontinued Coumadin 12 mg, 2 tab, Route: PO, Drug form: TAB, Q5PM, Dosing Weight 80.909, kg, Start d ate: 09/02/17 17:00:00 CDT, Duration: 1 doses or times, Stop date: 09/02/17 17:0 0:00 CDT Notes: Nurse to ensure documentation of patient education per anticoagulation po licy.Avoid large intake of vitamin-K containing foods diet.WASTE: F/P - P Waste Black; E - P Waste Black(Same As: Coumadin) Start Date: 09/02/17 Stop Date: 09/02/17 Status: Canceled metoprolol tartrate 100 mg, 1 tab, Route: PO, Drug form: TAB, Q12H, Dosing Weight 80.909, kg, Start date: 09/01/17 21:00:00 CDT, Duration: 30 day, Stop date: 10/01/17 9:00:00 [employer] Notes: (Same as: Lopressor) Start Date: 09/01/17 Stop Date: 09/02/17 Status: Discontinued minocycline 100 mg, 1 cap, Route: PO, Drug form: CAP, [id number], Dosing Weight 80.909, kg, Sta rt date: 09/01/17 18:00:00 CDT, Duration: 7 day, Stop date: 09/08/17 6:00:00 [employer] Notes: (Same as:Minocin) No milk/antacids/iron. Start Date: 09/01/17 Stop Date: 09/02/17 Status: Discontinued minocycline 100 mg oral capsule 100 mg=1 cap, PO, [id number], X 5 day, # 10 cap, 0 Refill(s) Start Date: 09/02/17 Stop Date: 09/07/17 Status: Ordered morphine Sulfate 2 mg, 0.5 mL, Route: IVP, Drug form: INJ, Q4H, Dosing Weight 80.909, kg, PRN Mayo n Score 7-10, Start date: 09/01/17 17:47:00 CDT, Duration: 2 day, Stop date: 11/19 17:46:00 CDT Notes: (Same as:MORPhine Sulfate) Start Date: 09/01/17 Stop Date: 09/02/17 Status: Discontinued morphine Sulfate 2 mg, Route: IVP, ONCE, Dosing Weight 80.909, kg, Start date: 09/01/17 17:49:00 CDT, Stop date: 09/01/17 17:49:00 CDT Start Date: 09/01/17 Stop Date: 09/01/17 Status: Completed pantoprazole 40 mg, 1 tab, Route: PO, Drug form: ECTAB, Daily, Dosing Weight 80.909, kg, Star t date: 09/02/17 9:00:00 CDT, Duration: 14 day, Stop date: 09/15/17 9:00:00 [employer] Start Date: 09/02/17 Stop Date: 09/02/17 Status: Discontinued pantoprazole 40 mg oral enteric coated tablet 40 mg=1 tab, PO, Daily, # 30 tab, 0 Refill(s) Start Date: 09/02/17 Stop Date: 10/02/17 Status: Ordered Saline Flush 0.9% 10 ml, Route: IVP, Drug Form: INJ, Dosing Weight 80.909, kg, Q12H, Start date: 1 21:00:00 CDT, Duration: 30 day, Stop date: 10/01/17 9:00:00 [employer] Notes: Same as: BD Posiflush Sterile Start Date: 09/01/17 Stop Date: 09/02/17 Status: Discontinued Saline Flush 0.9% 10 ml, Route: IVP, Drug Form: INJ, Dosing Weight 80.909, kg, PRN, PRN Line Flush , Start date: 09/01/17 14:58:00 CDT, Duration: 30 day, Stop date: 10/01/17 13:57 :00 [employer] Notes: Same as: BD Posiflush Sterile Start Date: 09/01/17 Stop Date: 09/02/17 Status: Discontinued sodium chloride 0.9% 1000 ml INJ (ANES) Route: IV, Total Volume: 1,000, Start date: 09/01/17 8:20:00 CDT, Stop date: 9:20:00 CDT Start Date: 09/01/17 Stop Date: 09/01/17 Status: Completed sodium chloride 0.9% 1000 ml INJ (ANES) Route: IV, Total Volume: 1,000, Start date: 09/01/17 8:20:00 CDT, Stop date: 9:20:00 CDT Start Date: 09/01/17 Stop Date: 09/01/17 Status: Completed sodium chloride 0.9% 1000 ml INJ (ANES) Route: IV, Total Volume: 1,000, Start date: 09/01/17 8:17:00 CDT, Stop date: 9:17:00 CDT Start Date: 09/01/17 Stop Date: 09/01/17 Status: Completed sodium chloride 0.9% 1000 ml INJ 1,000 mL 1,000 mL, Rate: 100 ml/hr, Infuse over: 10 hr, Route: IV, Dosing Weight 80.909 k g, Total Volume: 1,000, Start date: 09/01/17 6:01:00 CDT, Duration: 30 day, Stop date: 10/01/17 6:00:00 [employer] Start Date: 09/01/17 Stop Date: 09/02/17 Status: Discontinued sucralfate 1 gm, 1 tab, Route: PO, Drug form: TAB, Q12H, Dosing Weight 80.909, kg, Start da te: 09/01/17 21:00:00 CDT, Duration: 14 day, Stop date: 09/15/17 9:00:00 [employer] Notes: May interfere w/enteral feeds - Take 1 hr before or 2 hr after antacids, dairy pdt, meals & minerals - On empty stomach. Start Date: 09/01/17 Stop Date: 09/02/17 Status: Discontinued sucralfate 1 g oral tablet 1 gm=1 tab, PO, TID, # 42 tab, 0 Refill(s) Start Date: 09/02/17 Stop Date: 09/16/17 Status: Ordered tramadol 50 mg oral tablet 50 mg, 1 tab, Route: PO, Drug form: TAB, ONCE, Dosing Weight 80.909, kg, PRN Mayo n Score 6-10, Start date: 09/01/17 21:59:00 CDT Notes: Not to exceed 400mg/day. (Same As: Ultram) Start Date: 09/01/17 Stop Date: 09/01/17 Status: Completed Results BLOOD BANK RESULTS 1 2 3 Most recent to oldest [Reference Range]: O POS *Unknown* (09/01/17 6:03 AM) ABO/Rh Negative (09/01/17 6:03 AM) Antibody Scrn ELECTROLYTES 1 2 3 Most recent to oldest [Reference Range]: 139 mEq/L (09/02/17 5:08 AM) 139 mEq/L (09/01/17 6:03 AM) Sodium Lvl [135-145 mEq/L] 3.7 mEq/L (09/02/17 5:08 AM) 3.6 mEq/L (09/01/17 6:03 AM) Potassium Lvl [3.5-5.1 mEq/L] 108 mEq/L (09/02/17 5:08 AM) 105 mEq/L (09/01/17 6:03 AM) Chloride Lvl [95-109 mEq/L] 24 mEq/L (09/02/17 5:08 AM) 27 mEq/L (09/01/17 6:03 AM) CO2 [24-32 mEq/L] 10.7 mEq/L (09/02/17 5:08 AM) 10.6 mEq/L (09/01/17 6:03 AM) AGAP [10.0-20.0 mEq/L] CHEM PANEL 1 2 3 Most recent to oldest [Reference Range]: 0.51 mg/dL (09/02/17 5:08 AM) 0.60 mg/dL (09/01/17 6:03 AM) Creatinine Lvl [0.50-1.40 mg/dL] 127 mL/min/1.73m2 1 *NA* (09/02/17 5:08 AM) 120 mL/min/1.73m2 2 *NA* (09/01/17 6:03 AM) eGFR 8 mg/dL (09/02/17 5:08 AM) 12 mg/dL (09/01/17 6:03 AM) BUN [7-22 mg/dL] 20 (09/01/17 6:03 AM) B/C Ratio [6-25] 98 mg/dL (09/02/17 5:08 AM) 88 mg/dL (09/01/17 6:03 AM) Glucose Lvl [70-99 mg/dL] 7.0 g/dL (09/01/17 6:03 AM) Total Protein [6.4-8.4 g/dL] 3.6 g/dL (09/01/17 6:03 AM) Albumin Lvl [3.5-5.0 g/dL] 3.4 g/dL (09/01/17 6:03 AM) Globulin [2.7-4.2 g/dL] 1.1 (09/01/17 6:03 AM) A/G Ratio [0.7-1.6] 7.6 mg/dL *LOW* (09/02/17 5:08 AM) 8.4 mg/dL *LOW* (09/01/17 6:03 AM) Calcium Lvl [8.5-10.5 mg/dL] 1.5 mg/dL *LOW* (09/01/17 6:03 AM) Magnesium Lvl [1.8-2.4 mg/dL] 37 unit/L (09/01/17 6:03 AM) ALT [0-65 unit/L] 30 unit/L (09/01/17 6:03 AM) AST [0-37 unit/L] 55 unit/L (09/01/17 6:03 AM) Alk Phos [39-136 unit/L] 0.3 mg/dL (09/01/17 6:03 AM) Bili Total [0.2-1.3 mg/dL] 1Result Comment: The [...] tiplied by the estimated BMI. URINE CHEM 1 2 3 Most recent to oldest [Reference Range]: Negative (09/01/17 6:03 AM) U Preg [Negative] HEMATOLOGY 1 2 3 Most recent to oldest [Reference Range]: 5.3 K/CMM (09/01/17 6:03 AM) WBC [3.7-10.4 K/CMM] 4.20 M/CMM (09/01/17 6:03 AM) RBC [4.20-5.40 M/CMM] 12.9 g/dL (09/01/17 6:03 AM) Hgb [12.0-16.0 g/dL] 38.4 % (09/01/17 6:03 AM) Hct [36.0-48.0 %] 91.5 fL (09/01/17 6:03 AM) MCV [80.0-98.0 fL] 30.6 pg (09/01/17 6:03 AM) MCH [27.0-31.0 pg] 33.5 g/dL (09/01/17 6:03 AM) MCHC [32.0-36.0 g/dL] 14.0 % (09/01/17 6:03 AM) RDW [11.5-14.5 %] 193 K/CMM (09/01/17 6:03 AM) Platelet [133-450 K/CMM] 9.6 fL (09/01/17 6:03 AM) MPV [7.4-10.4 fL] 63.7 % (09/01/17 6:03 AM) Segs [45.0-75.0 %] 21.6 % (09/01/17 6:03 AM) Lymphocytes [20.0-40.0 %] 10.2 % (09/01/17 6:03 AM) Monocytes [2.0-12.0 %] 3.2 % (09/01/17 6:03 AM) Eosinophils [0.0-4.0 %] 1.3 % *HI* (09/01/17 6:03 AM) Basophils [0.0-1.0 %] 3.4 K/CMM (09/01/17 6:03 AM) Segs-Bands # [1.5-8.1 K/CMM] 1.1 K/CMM (09/01/17 6:03 AM) Lymphocytes # [1.0-5.5 K/CMM] 0.5 K/CMM (09/01/17 6:03 AM) Monocytes # [0.0-0.8 K/CMM] 0.2 K/CMM (09/01/17 6:03 AM) Eosinophils # [0.0-0.5 K/CMM] 0.1 K/CMM (09/01/17 6:03 AM) Basophils # [0.0-0.2 K/CMM] 23.4 seconds *HI* (09/01/17 6:03 AM) PT [12.0-14.7 seconds] 2.06 *HI* (09/01/17 6:03 AM) INR [0.85-1.17] 188 seconds *NA* (09/01/17 3:43 PM) 408 seconds *NA* (09/01/17 11:40 AM) 364 seconds *NA* (09/01/17 10:55 AM) POC Activated Clotting Time 40.6 seconds *HI* (09/01/17 6:03 AM) PTT [22.9-35.8 seconds] Immunizations Given and Recorded [...]
[2018-12-29 09:37] VITALS: BP 108/50
== END | disposition home or self-care (01) ==
LOC: CATH LAB 07:21
PROVIDERS: ATTEND Internal Medicine Interventional Cardiology
DX: I48.91 Unspecified atrial fibrillation (principal); I47.1 Supraventricular tachycardia; Z79.01 Long term (current) use of anticoagulants; Z95.2 Presence of prosthetic heart valve
CPT/HCPCS: 81025; 92960; 93312; 93320; 93325; J2001; J2250; J2704; J7030